=== PATIENT | female | born 1945 | race Caucasian/White ===

== ENCOUNTER 2019-05-13 16:46 | Inpatient (IN) | payer OTHER ==
[2019-05-13] MEDS ORDERED: SODIUM CHLORIDE 1,000 ML IV STA (17:43)
--- NOTE | 2019-05-13 17:52 | PDOC ---
History of Present Illness - General Chief Complaint: Nausea/Vomiting Stated Complaint: VOMITING Time Seen by Provider: 05/13/19 17:23 - History of Present Illness Initial Comments: 05/13/19 17:39 73 yo F with h/o DM, HTN, asthma, GERD, T5-T6 Vertebral Compression, CVA, dysphagia, trach collar (vent), feeding tube, who arrives from [facility] with complain of vomiting x 3 days. Patient arrives from [facility]. Patient reports 3 days of NBNB emesis. Reports 1 episode today, 2 episodes (05-12-18). No identifiable triggers or alleviators. Reports last BM today, nml. Tube feeds daily, denies PO intake. Respiratory report from [facility] (05-13-18) reports patient with episode of orange emesis while suctioning. Patient denies abdominal pain. Reports chronic cough at baseline. Reports chronic dysuria. Patient denies OLEA, vision change, palpitations, wheezing, orthopena, PND, leg swelling/pain, F,C, CP, SOB, urinary complaints, hematuria, BPR, abdominal pain , diarrhea, constipation, lightheadedness, weakness, sensory changes. PMHx: as noted above ROS: as noted SHx: Denies Etoh, IVDA, tobacco use Allergies: Ampicillin, Ciprofloxacin Past History - Past Medical History Allergies/Adverse Reactions: Allergies Allergy/AdvReac Type Severity Reaction Status Date / Time No Known Allergies Allergy Verified 05/13/19 17:59 - Psycho Social/Smoking Cessation Hx Smoking History: Former smoker Have you smoked in the past 12 months: No Information on smoking cessation initiated: No Hx Alcohol Use: No Drug/Substance Use Hx: No Review of Systems - Review of Systems Comments:: 05/13/19 17:53 GENERAL/CONSTITUTIONAL: No fever or chills. No weakness. HEAD, EYES, EARS, NOSE AND THROAT: No change in vision. No ear pain or discharge. No sore throat. CARDIOVASCULAR: No chest pain or shortness of breath RESPIRATORY: +cough. No wheezing, or hemoptysis. GASTROINTESTINAL: +nausea, vomiting. No diarrhea or constipation. GENITOURINARY: + dysuria. No frequency, or change in urination. MUSCULOSKELETAL: No joint or muscle swelling or pain. No neck or back pain. SKIN: No rash NEUROLOGIC: No headache, vertigo, loss of consciousness, or change in strength/ sensation. ENDOCRINE: No increased thirst. No abnormal weight change HEMATOLOGIC/LYMPHATIC: No anemia, easy bleeding, or history of blood clots. ALLERGIC/IMMUNOLOGIC: No hives or skin allergy. *Physical Exam - Vital Signs Last Vital Signs Temp Pulse Resp BP Pulse Ox 99.4 F 92 H 20 143/62 100 05/13/19 17:19 05/13/19 17:19 05/13/19 17:19 05/13/19 17:19 05/13/19 17:19 - Physical Exam 05/13/19 17:54 GENERAL: Awake, alert, and fully oriented, in no acute distress HEAD: No signs of trauma, normocephalic, atraumatic EYES: PERRLA, EOMI, sclera anicteric, conjunctiva clear ENT: Hearing grossly normal, nares patent, oropharynx clear without exudates. Moist mucosa NECK: Normal ROM, supple, no lymphadenopathy, JVD, or masses LUNGS: Coarse lungs sounds, wit exp rhonci, and coarse BL LL. No distress, speaks full sentences. HEART: Regular rate and rhythm, normal S1 and S2, no murmurs, rubs or gallops, peripheral pulses normal and equal bilaterally. ABDOMEN: + Feeding tube midabodmen in place, c/d/i. Soft, nontender, NDS normoactive bowel sounds. No guarding, no rebound. No masses EXTREMITIES : Normal inspection, Normal range of motion, no edema. No clubbing or cyanosis NEUROLOGICAL: Cranial nerves II through XII grossly intact. No focal sensorimotor deficits SKIN: Warm, Dry, normal turgor, no rashes or lesions noted ED Treatment Course - LABORATORY CBC & Chemistry Diagram: 05/13/19 18:45 05/13/19 18:45 - ADDITIONAL ORDERS Additional order review: 05/13/19 18:54 Rad Almanza Name: AN[facility] DEPARTMENT OF RADIOLOGY Phys: Manuel Ness RESIDENT : 1945 Age: 73 Sex: F [facility] Acct: [id number] Loc: [facility] Exam Date: 05/13/19 Status: [place] [address] Unit Number: [id number] EXAM#: TYPE/EXAM: RESULT: [id number] RAD/CHEST X-RAY PORTABLE* Chest: Shortness of breath A single AP view of the chest has been submitted. There are no prior studies at this time for comparison. There is a weak inspiration, tracheostomy tube, unfolded aorta, prominent ever and normal heart. There are prominent vascular structures at the bases with some questionable atelectasis at the left base. Angles are sharp. The soft tissues are intact. There are degenerative changes. Correlation recommended. Reported By: Jeff Mireles MD 05/13/191808 Manuel Ness Technologist: Del Sanches Transcribed Date/Time: 05/13/191808 Assignment Editor: Jeff Mireles Printed Date/Time: By Medical Decision Making - Medical Decision Making 05/13/19 17:52 73 yo F with h/o DM, HTN, asthma, GERD, T5-T6 Vertebral Compression, CVA, dysphagia, trach collar (vent), feeding tube, who arrives from [facility] with complain of vomiting x 3 days. Vitals wnl, AF, A&Ox3. Physical exam notable for patient with trach collar/vent, feeding tube in place, absent abdominal ttp, + coarse lung sounds BL LL bases. Will evaluate for infection (PNA, UTI, enteritis ), and aspiration. R/O SBO. Will evaluate for electrolyte abnml, metabolic and toxic derangements, hypoglycemia. Will provide IV fluid hydration, and reassess. ED Course: 05/13/19 19:13 EKG: NSR with absent MONAE, STD. Incomplete RBBB. Nml interval duration and axis. Nml R wave progression. Pt. endorsed to evening resident Pending labs, UA, reassess Discharge - Discharge Information Problems reviewed: Yes Clinical Impression/Diagnosis: Acute vomiting Condition: Stable Disposition: HOME - Follow up/Referral - Patient Discharge Instructions Patient Printed Discharge Instructions: DI for Vomiting -- Adult Additional Instructions: Please return to the emergency department with any new or worsening symptoms or concerns. Please follow up with your primary care physician within 72 hours. - Post Discharge Activity
--- NOTE | 2019-05-13 19:00 | PDOC ---
Documentation entered by Wilian Sharp SCRIBE, acting as scribe for Rae Riggins DO. Rae Riggins DO: This documentation has been prepared by the Lila luciano Xhesika, SCRIBE, under my direction and personally reviewed by me in its entirety. I confirm that the documentation accurately reflects all work, treatment, procedures, and medical decision making performed by me. Attending Attestation - Resident Resident Name: GroverAustenManuel - ED Attending Attestation I have performed the following: I have examined & evaluated the patient, The case was reviewed & discussed with the resident, I agree w/resident's findings & plan, Exceptions are as noted - HPI HPI: 05/13/19 19:08 The patient is a 73 year old female with a significant PMH of M, HTN, asthma, GERD, T5-T6 Vertebral Compression, CVA, dysphagia, trach collar (vent), feeding tube who presents to the emergency department [facility] for 1 week of persistent nausea and vomiting. Pt states when she gets nauseous she endorses 2-3 episodes of emesis directly after. Pt reports abdominal pain and loose bowel movements. Parents at bedside state the patient normally eats food orally and now is unable to because of her tube. NH reports states patient endorsed an episode of orange emesis while suctioning. The patient denies chest pain, shortness of breath, headache and dizziness. Denies fever, chills, cough,diarrhea and constipation. Allergies: NKDA - Physicial Exam PE: 05/13/19 19:09 GENERAL: Awake, alert, and fully oriented, conversant with whispering voice HEAD: No signs of trauma ENT: +trach in place NECK: Normal ROM, supple, no lymphadenopathy, JVD, or masses LUNGS: Breath sounds equal, clear to auscultation bilaterally. No wheezes, and no crackles HEART: Regular rate and rhythm, normal S1 and S2, no murmurs, rubs or gallops ABDOMEN: +peg tube in place. no drainage, site clear. Soft, nontender, normoactive bowel sounds. No guarding, no rebound. No masses EXTREMITIES: Normal range of motion, no edema. No clubbing or cyanosis. No cords, erythema, or tenderness SKIN: Warm, Dry, normal turgor, no rashes or lesions noted. - Medical Decision Making 05/13/19 18:58 I, Dr. Rae Riggins, DO, attest that this document has been prepared under my direction and personally reviewed by me in its entirety. I further attest, that it accurately reflects all work, treatment, procedures and medical decision -making performed by me. 73yo female with persistent n/v for about a week -pt has been unable to tolerate po intake and is only on tube feeds -pt states sometimes with abd pain and sometimes with nausea, no cp -pt with chronic trach and peg from [place] at [facility] in January -pt is DNR/I -pt denies abd pain at this time -tube in place -labs and imaging ordered -trop ordered -will give zofran, ivf hydraiton -will monitor and reassess -pt on chronic vent through the trach 05/13/19 19:01 cxr clear 05/13/19 20:47 pt with hypercalcemia pt with cr 1.[address] abd no vomiting while in the ER ivf hydraiton running 05/13/19 20:48 will straight cath for urine 05/13/19 23:48 pt with uti abx ordered microblog sent pmd dr. osuna who is covered by dr. dee who is covered tonight by [facility] 05/14/19 00:49 resident discussed the case with [facility] who accepts pt to service Heart Score/ECG Review - ECG Intrepretation Comment:: 05/13/19 19:12 sinus at 93, incomplete RBBB, nl axis, no acute st/t wave findings
[2019-05-13 19:16] LABS: BASO % 0.9 % (0-2.0); EOS % 6.7 % (0-4.5); HEMATOCRIT 31.1 % (32.4-45.2); HEMOGLOBIN 10.2 GM/dL (10.7-15.3); LYMPH % 16.8 % (8-40); MCH 25.7 pg (25.7-33.7); MCHC 32.7 g/dl (32.0-36.0); MEAN CELL VOLUME 78.7 fl (80-96); MEAN PLT VOLUME 9.1 fl (7.5-11.1); MONO % 10.3 % (3.8-10.2); NEUT % 65.3 % (42.8-82.8); PLATELET COUNT 377 K/MM3 (134-434); RBC 3.95 M/mm3 (3.60-5.2); RDW 16.3 % (11.6-15.6); WHITE BLOOD COUNT 7.3 K/mm3 (4.0-10.0)
[2019-05-13 19:45] LABS: PROTHROMBIN TIME (PATIENT) 11.8 SEC (9.7-13.0)
[2019-05-13 19:48] LABS: ACTIVATED PTT 36.2 SECONDS (25.2-36.5)
[2019-05-13 19:50] LABS: ALBUMIN 3.1 g/dl (3.4-5.0); BILIRUBIN,TOTAL 0.4 mg/dL (0.2-1); BLOOD UREA NITROGEN 21.8 mg/dL (7-18); CALCIUM 12.8 mg/dL (8.5-10.1); CREATININE 1.4 mg/dL (0.55-1.3); POTASSIUM 4.2 mmol/L (3.5-5.1)
[2019-05-13] MEDS ORDERED: ONDANSETRON 4 MG/2 ML VIAL IVPUSH ONE (20:15)
[2019-05-13] MEDS ORDERED: FAMOTIDINE 20 MG/50 ML IVPB 20 MG/50 ML MG IVPB ONE ×2 (20:15→20:25)
[2019-05-13] MEDS ORDERED: SODIUM CHLORIDE 0.9% 1000 ML INFUS.BAG IV ONE (20:15)
[2019-05-13] MEDS ORDERED: ONDANSETRON 4 MG/2 ML VIAL ONE (20:24)
--- NOTE | 2019-05-13 21:02 | PDOC ---
*Physical Exam - Vital Signs Last Vital Signs Temp Pulse Resp BP Pulse Ox 99.4 F 92 H 15 143/62 100 05/13/19 17:19 05/13/19 17:19 05/13/19 20:07 05/13/19 17:19 05/13/19 17:19 - Physical Exam General Appearance: Yes: Nourished, Appropriately Dressed. No: Apparent Distress HEENT: positive: EOMI, SURAJ, Symmetrical, Muffled/Hoarse voice. negative: Scleral Icterus (R), Scleral Icterus (L) Neck: positive: Trachea midline, Supple, Other (has trach in place, hooked up to vent). negative: Tender, Lymphadenopathy (R), Lymphadenopathy (L), Tender lateral, Tender midline Respiratory/Chest: positive: Lungs Clear, Normal Breath Sounds. negative: Chest Tender, Respiratory Distress, Crackles, Rales, Rhonchi, Stridor, Wheezing Cardiovascular: positive: Regular Rhythm, Regular Rate Gastrointestinal/Abdominal: positive: Normal Bowel Sounds, Soft, Protuberent, Other (PEG in place left upper abdomen, well-healed ventral scar). negative: Tender, Organomegaly, Decreased BS, Guarding, Rebound, Tenderness, Hernia Musculoskeletal: positive: Normal Inspection. negative: CVA Tenderness, Vertebral Tenderness Extremity: positive: Normal Capillary Refill, Normal Inspection, Normal Range of Motion, Pelvis Stable. negative: Tender Integumentary: positive: Normal Color, Dry, Warm Neurologic: positive: Fully Oriented, Alert, Normal Mood/Affect, Normal Response ED Treatment Course - LABORATORY CBC & Chemistry Diagram: 05/13/19 18:45 05/13/19 18:45 - ADDITIONAL ORDERS Additional order review: Laboratory Results 05/13/19 05/13/19 18:45 18:45 PT with INR 11.80 INR 1.00 PTT (Actin FS) 36.2 Sodium 140 Potassium 4.2 Chloride 102 Carbon Dioxide 31 Anion Gap 6 L BUN 21.8 H Creatinine 1.4 H Est GFR (CKD-EPI)AfAm 43.09 Est GFR (CKD-EPI)NonAf 37.18 Random Glucose 248 H Calcium 12.8 H Total Bilirubin 0.4 AST 38 H ALT 20 Alkaline Phosphatase 116 Creatine Kinase 62 Troponin I 0.03 Total Protein 7.0 Albumin 3.1 L Lipase 63 L 05/13/19 18:45 RBC 3.95 MCV 78.7 L MCHC 32.7 RDW 16.3 H MPV 9.1 Neutrophils % 65.3 Lymphocytes % 16.8 Monocytes % 10.3 H Eosinophils % 6.7 H Basophils % 0.9 - Medications Given in the ED: ED Medications Discontinued Medications Generic Name Dose Route Start Last Admin Trade Name Freq PRN Reason Stop Dose Admin Sodium Chloride 1,000 mls @ 1,000 mls/hr 05/13/19 17:43 05/13/19 18:54 Normal Saline - IV 05/13/19 18:42 1,000 mls/hr ASDIR STA Administration Famotidine/Sodium Chloride 20 mg in 50 mls @ 100 mls/hr 05/13/19 20:15 20:34 Pepcid 20 Mg Premixed Ivpb - IVPB 05/13/19 20:44 100 mls/hr ONCE ONE Administration Ondansetron HCl 4 mg 05/13/19 20:15 05/13/19 21:00 Zofran Injection IVPUSH 05/13/19 20:16 4 mg ONCE ONE Administration Sodium Chloride 1,000 ml 05/13/19 20:15 05/13/19 20:34 Normal Saline - IV 05/13/19 20:16 1,000 ml ONCE ONE Administration Medical Decision Making - Medical Decision Making 05/13/19 21:01 Signed out to me by Dr. Ness. 73F DNR/DNI PMH DM, HTN, GERD, asthma, CVA c/b dysphagia and tracheostomy/vent, PEG, sent from [facility] for 3 days vomiting. Patient reports 3 days of NBNB emesis, unrelated to abdominal pain or tube feedings. Last BM today, normal. Tube feeds daily, denies PO intake. Per report , one episode of orange emesis while suctioning trach. Chronic cough at baseline. No other symptoms outside of nausea/vomiting Allergies to Ampicillin, Ciprofloxacin [] labs [] UA [] CT AP non-con 05/13/19 23:33 Labs show: - Ca 12.8, unclear etiology, giving IVF - Cr 1.4, no priors to compare, consistent with ARNAV - WBC 7.3, no obvious systemic infection - UA consistent with UTI, giving ceftriaxone 05/14/19 06:[address] Carver with admitting team, good for admit to tele under Dr. Hall Discharge - Discharge Information Problems reviewed: Yes Clinical Impression/Diagnosis: Acute vomiting Condition: Stable Disposition: HOME - Follow up/Referral - Patient Discharge Instructions - Post Discharge Activity
[2019-05-13 23:41] LABS: PH,URINE 6.5 (5.0-8.0); URINE APPEARANCE TURBID; URINE BILIRUBIN NEGATIVE (NEGATIVE); URINE COLOR YELLOW; URINE GLUCOSE (UA) NEGATIVE (NEGATIVE); URINE KETONE NEGATIVE (NEGATIVE); URINE NITRITE NEGATIVE (NEGATIVE); URINE PROTEIN 2+ (NEGATIVE)
[2019-05-13 23:42] LABS: EPI CELLS 65.5 /HPF (0-5/HPF); HYALINE CASTS 1076.77 /lpf (0-8); URINE BACTERIA 903.7 /hpf (NEGATIVE); URINE LEUK ESTERASE 3+ (NEGATIVE); URINE RBC 0.4 /hpf (0-4); URINE WBC 648.5 /hpf (0-5)
[2019-05-13] MEDS ORDERED: CEFTRIAXONE 1 GM in DEXTROSE 5%-WATER - 100 ML IVPB ONE (23:47)
--- NOTE | 2019-05-14 01:03 | PN ---
Teaching Attending Note Name of Resident: Manuel Carver ATTENDING PHYSICIAN STATEMENT I saw and evaluated the patient. I reviewed the resident's note and discussed the case with the resident. I agree with the resident's findings and plan as documented. SUBJECTIVE: Patient is a 73 year old woman with a PMH of NIDDM, HTN, Asthma, GERD, T5-T6 Vertebral Compression, CVA, Dysphagia, Tracheostomy collar (ventilator), and Feeding tube, who arrives from [facility] with complaint of vomiting fro 3 days. Reports 1 episode today, 2 episodes (05-12-18). No identifiable triggers or alleviators. Reports last normal BM today. Tube feeds daily with no PO intake. Respiratory report from [facility] (05-13-18) reports patient with episode of orange emesis while suctioning. Patient denies abdominal pain. Reports chronic cough at baseline. Reports chronic dysuria. Patient denies headache, vision change, palpitations, wheezing, orthopena, PND, leg swelling/pain, fever, chills, chest pain, SOB, hematuria, hematochezia, abdominal pain, diarrhea, constipation, lightheadedness or weakness. FH of breast cancer. Denies alcohol, tobacco or illicit drug use. No sick contacts or recent travels. OBJECTIVE: Somnolent but readily arousable Vital Signs Period Temp Pulse Resp BP Sys/Vences Pulse Ox Last 24 Hr 99.4 F 86-92 14-20 126-143/48-62 100-100 HEENT: No Jaundice, eye redness or discharge, PERRLA. Normocephalic, atraumatic. External ears are normal. No nasal discharge. Neck: Supple, nontender. No palpable adenopathy or thyromegaly. No JVD. Ventilator dependent via tracheostomy tube. Chest: Good effort. Clear to auscultation and percussion. Heart: Regular. No S3, rub or murmur Abdomen: Not distended, soft, nontender and no HSM. No rebound or guarding. PEG in place. Normal bowel sounds. Ext: Peripheral pulses intact. No leg edema. Skin: Warm and dry. No petechiae, rash or ecchymosis. Neuro: Somnolent but readily arousable. CN 2-12 grossly intact. Sensation grossly intact in all four extremities and DTR are symmetric. Psych: Unable to assess. Abnormal Lab Results 05/13/19 05/13/19 05/13/19 18:45 18:45 22:40 Hgb 10.2 L Hct 31.1 L MCV 78.7 L RDW 16.3 H Monocytes % 10.3 H Eosinophils % 6.7 H Anion Gap 6 L BUN 21.8 H Creatinine 1.4 H Random Glucose 248 H Calcium 12.8 H AST 38 H Albumin 3.1 L Lipase 63 L Urine Protein 2+ H Urine Blood 3+ H Ur Leukocyte Esterase 3+ H ASSESSMENT AND PLAN: 1. UTI/Hypercalcemia - Nausea and vomiting may be due to UTI, but will rule out obstruction. Etiology of hypercalcemia is unclear. CXR shows bilateral increased interstitial makings and tracheostomy tube in place. Being treated with IV Zosyn and Vancomycin - adjusted for GFR for UTI. Will get CT abdomen/ pelvis, PTH level, phosphate, urine calcium, SPEP/UPEP and hydrate with IV NS to correct hypercalcemia. EKG shows NSR with IRBBB and prolonged QTc. Will avoid zofran. Withhold PEG feeding pending result of CT abdomen/pelvis. Will continue comprehensive care for all of patients comorbid conditions including Duoneb PRN and aspiration precautions. 2. Hypoalbuminemia - Possibly due to combined effects of proteinuria, malnutrition and inflammation associated with comorbid chronic conditions. Will ensure adequate dietary protein intake and also consult score caller. 3. Uncontrolled DM For now, we will hold the home diabetes drugs and implement sliding scale insulin regimen. Provide comprehensive diabetes care with patient teaching and counseling about the importance of adherence to prescribed diabetes regimen, euglycemia, eye care and foot care. 4. ARNAV - May have underlying CKD. Has multiple risk factors for ARNAV. Will get kidney sonogram, hydrate and monitor urine output. Will consult nephrology and avoid nephrotoxic agents such as NSAIDS, aminoglycosides, contrast dyes and certain Alternative medicine products. 5. Hypertension - Restart suitable outpatient antihypertensive drugs when clinically appropriate. Revise regimen to ensure [id number] excellent BP control and queen's counsel patient on the injurious effects of uncontrolled hypertension. Nonpharmacologic measures to control hypertension like weight loss , salt restriction and exercise discussed. Importance of adherence to treatment regimen and attainment of normotension emphasized. 6. Anemia with low MCV - Nutritional deficiency and renal failure are likely causes. Will do basic anemia work up including serial stool guaiacs, reticulocyte count and iron studies. Would benefit from Procrit therapy once iron replete. 7. DVT prophylaxis - Heparin 5000u sq tid. 8. Advance directives - DNR/DNI
[2019-05-14] MEDS ORDERED: CEFTRIAXONE 1 GM/50 ML BAG ONE (01:06)
[2019-05-14] MEDS ORDERED: ACETAMINOPHEN 1000 MG/100 ML VIAL (NON FORMULARY) IVPB ONE (02:47)
[2019-05-14] MEDS ORDERED: VANCOMYCIN 1 GRAM (PRE-DOCKED) 1,000 MG/250 ML BAG IVPB SCH (03:30)
[2019-05-14] MEDS ORDERED: VANCOMYCIN 1 GM PREMIX - 1 GM/200 ML BAG IVPB SCH (03:30)
[2019-05-14] MEDS ORDERED: VANCOMYCIN 1 GRAM (PRE-DOCKED) 1,000 MG/250 ML BAG IVPB ONE ×2 (03:43→17:14)
[2019-05-14] MEDS ORDERED: ACETAMINOPHEN INJECTION 100 ML IVPB ONE (03:43)
--- NOTE | 2019-05-14 05:19 | HP ---
CHIEF COMPLAINT: Nausea and vomiting and a dry cough for the past 10 days PCP: Dr. Chakraborty HISTORY OF PRESENT ILLNESS: This is a 73 year old female with PMH of complicated cardiac stent placement ( Dec 2018, developed sepsis 2/2 UTI, resp failure, was subsequently intubated currently on vent through trach and PEG tube placement), asthma, DM, HTN. She presented to the ER from [facility] due to nausea and vomiting and a dry cough for the past 10 days. She has had 1 episode per day of yellow vomiting. As per nursing staff, orange emesis was noticed today while trach suctioning. She has also had diarrhea, although she is on tube feeds and has watery diarrhea at baseline since PEG placement. No associated fevers, chills, dysuria, light headedness, chest pain. She is AOx3 at baseline, and was present at bedside to assist with history and examination. She has 40+ year history of asthma, and has frequently been on Prednisone PO on and off for several years. She developed back pain a few years ago, and subsequently developed 3 vertebral fractures, which was attributed to chronic steroid use. She was due to undergo surgery, but after imaging her surgeon stated that her osteoporosis was too advanced for any benefit from surgery (Dec 2018). Around the same time, she developed chronic SOB with chest discomfort. On further cardiac workup, she was found to have ACS, and underwent stent placement at [facility]. Her recovery was complicated by sepsis 2/2 UTI, resp failure, and she was subsequently intubated for 3 weeks, after which tracheostomy was performed and a PEG tube was also placed. She was then transferred to [facility] for rehab. ER course was notable for: (1) Ca 12.8 (corrected 13.5) (2) Ceftriaxone 1g given (3) UA 3+ blood, 3+ LE Recent Travel: denies PAST MEDICAL HISTORY: See HPI PAST SURGICAL HISTORY: GB removal 10 years ago Surgery for vaginal prolapse correction 5 years ago Social History: Smoking: denies Alcohol: denies Drugs: denies Allergies No Known Allergies Allergy (Verified 05/13/19 17:59) HOME MEDICATIONS: REVIEW OF SYSTEMS CONSTITUTIONAL: fevers Absent: fever, chills, diaphoresis, generalized weakness, malaise, loss of appetite, weight change HEENT: Absent: rhinorrhea, nasal congestion, throat pain, throat swelling, difficulty swallowing, mouth swelling, ear pain, eye pain, visual changes CARDIOVASCULAR: Absent: chest pain, syncope, palpitations, irregular heart rate, lightheadedness , peripheral edema RESPIRATORY: cough Absent: cough, shortness of breath, dyspnea with exertion, orthopnea, wheezing, stridor, hemoptysis GASTROINTESTINAL: nausea, vomiting, diarrhea Absent: abdominal pain, abdominal distension, nausea, vomiting, diarrhea, constipation, melena, hematochezia GENITOURINARY: Absent: dysuria, frequency, urgency, hesitancy, hematuria, flank pain, genital pain MUSCULOSKELETAL: Absent: myalgia, arthralgia, joint swelling, back pain, neck pain SKIN: Absent: rash, itching, pallor HEMATOLOGIC/IMMUNOLOGIC: Absent: easy bleeding, easy bruising, lymphadenopathy, frequent infections ENDOCRINE: Absent: unexplained weight gain, unexplained weight loss, heat intolerance, cold intolerance NEUROLOGIC: Absent: headache, focal weakness or paresthesias, dizziness, unsteady gait, seizure, mental status changes, bladder or bowel incontinence PSYCHIATRIC: Absent: anxiety, depression, suicidal or homicidal ideation, hallucinations. PHYSICAL EXAMINATION Vital Signs - 24 hr 05/13/19 05/13/19 05/13/19 17:05 17:19 20:07 Temperature 99.4 F Pulse Rate 92 H Pulse Rate [ Left Radial] Respiratory 14 20 15 Rate Blood Pressure 143/62 Blood Pressure [Left Arm] Blood Pressure [Right Arm] O2 Sat by Pulse 100 Oximetry (%) 05/13/19 05/14/19 05/14/19 21:01 00:14 02:54 Temperature 98.3 F Pulse Rate Pulse Rate [ 86 93 H Left Radial] Respiratory 14 14 22 H Rate Blood Pressure Blood Pressure 139/62 [Left Arm] Blood Pressure 126/48 L [Right Arm] O2 Sat by Pulse 100 100 Oximetry (%) GENERAL: AOx3, appears somnolent but responsive HEAD: Normal with no signs of trauma. EYES: Pupils equal, round and reactive to light, extraocular movements intact, sclera anicteric, conjunctiva clear. No lid lag. EARS, NOSE, THROAT: Ears normal, nares patent, oropharynx clear without exudates. Moist mucous membranes. NECK: Trach tube in place, connected to vent LUNGS: Vent transmitted breath sounds, no crackles or wheezing heard HEART: Regular rate and rhythm, normal S1 and S2 without murmur, rub or gallop. ABDOMEN: Soft, supraumbilical PEG tube in place without erythema, discoloration , or tenderness around the insertion site, suprapubic tenderness to palpation, patient refused digital rectal exam UPPER EXTREMITIES: 2+ pulses, warm, well-perfused. No cyanosis. No clubbing. No peripheral edema. LOWER EXTREMITIES: Appears to have genu valgum, pulses intact NEUROLOGICAL: Upper motor strength 3/5, lower 4/5, sensations intact PSYCHIATRIC: Cooperative. Good eye contact. Appropriate mood and affect. SKIN: Warm, dry, normal turgor, no rashes or lesions noted, normal capillary refill. Laboratory Results - last 24 hr 05/13/19 05/13/19 05/13/19 18:45 18:45 18:45 WBC 7.3 RBC 3.95 Hgb 10.2 L Hct 31.1 L MCV 78.7 L MCH 25.7 MCHC 32.7 RDW 16.3 H Plt Count 377 MPV 9.1 Absolute Neuts (auto) 4.8 Neutrophils % 65.3 Lymphocytes % 16.8 Monocytes % 10.3 H Eosinophils % 6.7 H Basophils % 0.9 Nucleated RBC % 0 PT with INR 11.80 INR 1.00 PTT (Actin FS) 36.2 Sodium 140 Potassium 4.2 Chloride 102 Carbon Dioxide 31 Anion Gap 6 L BUN 21.8 H Creatinine 1.4 H Est GFR (CKD-EPI)AfAm 43.09 Est GFR (CKD-EPI)NonAf 37.18 Random Glucose 248 H Calcium 12.8 H Total Bilirubin 0.4 AST 38 H ALT 20 Alkaline Phosphatase 116 Creatine Kinase 62 Troponin I 0.03 Total Protein 7.0 Albumin 3.1 L Lipase 63 L Urine Color Urine Appearance Urine pH Ur Specific [place] Urine Protein Urine Glucose (UA) Urine Ketones Urine Blood Urine Nitrite Urine Bilirubin Urine Urobilinogen Ur Leukocyte Esterase Urine WBC (Auto) Urine RBC (Auto) Urine Casts (Auto) U Pathogenic Cast Auto U Epithel Cells (Auto) Urine Bacteria (Auto) 05/13/19 22:40 WBC RBC Hgb Hct MCV MCH MCHC RDW Plt Count MPV Absolute Neuts (auto) Neutrophils % Lymphocytes % Monocytes % Eosinophils % Basophils % Nucleated RBC % PT with INR INR PTT (Actin FS) Sodium Potassium Chloride Carbon Dioxide Anion Gap BUN Creatinine Est GFR (CKD-EPI)AfAm Est GFR (CKD-EPI)NonAf Random Glucose Calcium Total Bilirubin AST ALT Alkaline Phosphatase Creatine Kinase Troponin I Total Protein Albumin Lipase Urine Color Yellow Urine Appearance Turbid Urine pH 6.5 Ur Specific [place] 1.013 Urine Protein 2+ H Urine Glucose (UA) Negative Urine Ketones Negative Urine Blood 3+ H Urine Nitrite Negative Urine Bilirubin Negative Urine Urobilinogen 1.0 Ur Leukocyte Esterase 3+ H Urine WBC (Auto) 648.5 Urine RBC (Auto) 0.4 Urine Casts (Auto) 1076.77 U Pathogenic Cast Auto None seen U Epithel Cells (Auto) 65.5 Urine Bacteria (Auto) 903.7 ASSESSMENT/PLAN: 73F with PMH of complicated cardiac stent placement (Dec 2018, developed sepsis 2/2 UTI, resp failure, was subsequently intubated currently on vent through trach and PEG tube placement), asthma, DM, HTN. She presented to the ER from [facility] due to nausea and vomiting and a dry cough for the past 10 days #Sepsis/UTI - This may be causing her nausea and vomiting - UA through straight cath showed UA 3+ blood, 3+ LE - CXR: bilateral increased interstitial makings and tracheostomy tube in place - CT AP ordered - Urine cx ordered, will cover broadly for Pseudomonas (extensive stay in medical setting for several months) as well as MRSA with Zosyn 2.25 Q6(renal dose) and vanco 1g daily - ID consulted - Avoid Zofran, QTC is in 487 - Influenza test ordered #Hypercalcemia - 12.8, corrected for albumin is 13.5 - PTH vs malignancy vs multiple myeloma vs familial hypocalciuric hypercalcemia (FHH) - Will order PTH to check for hyperparathyroidism - MM must be r/o due to hx of elevated Ca, renal insufficiency, anemia, vertebral fxs, and repeated infections (multiple UTIs) - Will order serum and urine electrophoresis to r/o MM - Urine Ca ordered to r/o FHH #ARNAV vs CKD - No records to compare to, would contact [facility] to obtain records - Hypercalcemia may cause renal dysfunction due to polyuria induced vasoconstriction (shown in Ca levels between 12-14), or even tubular injury through direct ca deposition, although cause of CKD/ARNAV is unclear - Will hydrate with N/S - Renal US ordered - Nephro consult placed #Anemia - H/H 10.2/31.1 with low MCV and elevated RDW, suggestive of microcytic anemia - TIBC, Fe studies ordered - FOBT ordered #DM - BGM and ISS - May resume long acting insulin once confirmed #Hx of Asthma - Duonebs PRN ordered #FEN - Hold PEG feeds until official CT AP result #DVT - SCDs, may start Heparin once GI bleed ruled out on FOBT #Advanced directives - Patient is DNR/DNI Visit type - Emergency Visit Emergency Visit: Yes ED Registration Date: 05/14/19 Care time: The patient presented to the Emergency Department on the above date and was hospitalized for further evaluation of their emergent condition. - New Patient This patient is new to me today: Yes Date on this admission: 05/14/19 - Critical Care Critical Care patient: No ATTENDING PHYSICIAN STATEMENT I saw and evaluated the patient. I reviewed the resident's note and discussed the case with the resident. I agree with the resident's findings and plan as documented. SUBJECTIVE: OBJECTIVE: ASSESSMENT AND PLAN:
[2019-05-14] MEDS: ALBUTEROL SO4 2.5/IPRATROPIUM 0.5 INH SOL 3 ML VIAL.NEB. NEB SCH ×5 (05:30→20:20)
[2019-05-14] MEDS ORDERED: HEPARIN NA (PORCINE) 5,000 UNITS/ML 1ML VIAL SQ SCH (06:00)
[2019-05-14 08:20] LABS: BASO % 0.4 % (0-2.0); EOS % 6.4 % (0-4.5); HEMATOCRIT 29.6 % (32.4-45.2); HEMOGLOBIN 9.7 GM/dL (10.7-15.3); LYMPH % 13.8 % (8-40); MCH 25.9 pg (25.7-33.7); MCHC 32.9 g/dl (32.0-36.0); MEAN CELL VOLUME 78.9 fl (80-96); MEAN PLT VOLUME 8.9 fl (7.5-11.1); MONO % 9.8 % (3.8-10.2); NEUT % 69.6 % (42.8-82.8); PLATELET COUNT 324 K/MM3 (134-434); RBC 3.75 M/mm3 (3.60-5.2); RDW 16.7 % (11.6-15.6); WHITE BLOOD COUNT 7.2 K/mm3 (4.0-10.0)
[2019-05-14 08:26] LABS: IRON SERUM 30 ug/dL (50-175); TOTAL IRON BINDING CAPACITY 255 ug/dL (250-450)
[2019-05-14 08:48] LABS: ALBUMIN 2.9 g/dl (3.4-5.0); BILIRUBIN,TOTAL 0.6 mg/dL (0.2-1); BLOOD UREA NITROGEN 19.3 mg/dL (7-18); CALCIUM 12.7 mg/dL (8.5-10.1); CREATININE 1.2 mg/dL (0.55-1.3); POTASSIUM 3.8 mmol/L (3.5-5.1); TOT PROT 6.7 g/dl (6.4-8.2)
[2019-05-14] MEDS ORDERED: PIPERACILLIN/TAZOB 2.25 GM 2.25 GM in DEXTROSE 5%-WATER - 50 ML IVPB SCH (09:00)
[2019-05-14] MEDS: INSULIN (NOVOLOG) ASPART 100 UNITS/ML 10ML VIAL SQ SCH ×2 (09:22→15:32)
[2019-05-14] MEDS ORDERED: PIPERACILLIN/TAZOB 2.25 GM 2.25 GM/50 ML BAG IVPB ONE (09:28)
--- NOTE | 2019-05-14 10:39 | PN ---
Progress Note, Physician Chief Complaint: UTI Hypercalcemia Nausea/Vomiting History of Present Illness: Previous notes and events reviewed awake and alert mechanically ventilated noted to be anxious, patient is paranoid saying people are out to get her complain of mid chest pain, tachycardic denies SOB or dizziness no further reports of nausea or vomiting - Current Medication List Current Medications: Active Medications Albuterol/Ipratropium (Duoneb -) 1 amp NEB RQ4H CHIQUITA Last Admin: 05/14/19 05:30 Dose: 1 amp Vancomycin HCl (Vancomycin 1 Gm Premix -) 1 gm in 200 mls @ 133.333 mls/hr IVPB Q24H CHIQUITA Piperacillin Sod/Tazobactam (Sod 2.25 gm/ Dextrose) 50 mls @ 100 mls/hr IVPB Q6H-IV CHIQUITA; Protocol Piperacillin Sod/Tazobactam (Sod 2.25 gm/ Dextrose) 50 mls @ 100 mls/hr IVPB Q6H-IV CHIQUITA; Protocol Stop: 05/15/19 03:29 Insulin Aspart (Novolog Vial) 1 units SQ ACHS CHIQUITA; Protocol Last Admin: 05/14/19 09:22 Dose: Not Given - Objective Vital Signs: Vital Signs Temperature 98.3 F 05/14/19 02:54 Pulse Rate 89 05/14/19 07:01 Respiratory Rate 14 05/14/19 07:01 Blood Pressure 137/60 05/14/19 07:01 O2 Sat by Pulse Oximetry (%) 100 05/14/19 07:01 Constitutional: Yes: Anxious Eyes: Yes: Conjunctiva Clear HENT: Yes: Atraumatic, Other Neck: Yes: Other (trach) Cardiovascular: Yes: Tachycardia Respiratory: Yes: Regular, Diminished, Mechanically Ventilated Gastrointestinal: Yes: Normal Bowel Sounds, Soft, Other (Gtube) Genitourinary: Yes: Incontinence Musculoskeletal: Yes: Muscle Weakness Extremities: Yes: WNL Edema: No Neurological: Yes: Alert Psychiatric: Yes: Alert, Other (anxious) Labs: CBC, BMP 05/14/19 05:51 05/14/19 05:51 INR, PTT INR 1.00 (0.83-1.09) 05/13/19 18:45 Problem List - Problems (1) UTI (urinary tract infection) Assessment/Plan: -ID consult -afebrile -no leukocytosis -received Ceftriaxone in ER -UC pending -UA shows 3+ leuks, 3+ blood, 3+ protein, WBC 684.5 -LA ordered Code(s): N39.0 - URINARY TRACT INFECTION, SITE NOT SPECIFIED (2) Hypercalcemia Assessment/Plan: -Renal consult -12.8~12.7 -PTH pending -M-spike pending -pending serum protein electrophoresis Code(s): E83.52 - HYPERCALCEMIA (3) CKD (chronic kidney disease) Assessment/Plan: -Renal Consult -BUN/Cr 19.3/1.2 -monitor renal function daily -pending renal US Code(s): N18.9 - CHRONIC KIDNEY DISEASE, UNSPECIFIED (4) Respiratory failure with hypoxia and hypercapnia Assessment/Plan: -Pulmonary consult -mechanically ventilated -keep SpO2 >90% -Montelukast HS -Prednisone daily Code(s): J96.91 - RESPIRATORY FAILURE, UNSPECIFIED WITH HYPOXIA; J96.92 - RESPIRATORY FAILURE, UNSPECIFIED WITH HYPERCAPNIA (5) Nausea and vomiting Assessment/Plan: -CTAP shows somewhat atrophic R kidney, umbilical hernia containing non- obstructed small bowel loopsno gross evidence of acute pathology within abdomen or pelvis -no Zofran due to prolong QT -consult dietary to begin feeds -no further episodes of vomiting reported Code(s): R11.2 - NAUSEA WITH VOMITING, UNSPECIFIED (6) Chest pain Assessment/Plan: -EKG reviewed NSR -Cardiology consult -tachycardic at present will re-order EKG -troponin 0.03 Code(s): R07.9 - CHEST PAIN, UNSPECIFIED (7) Anxiety Assessment/Plan: -Psychiatry consult -Klonopin BID Code(s): F41.9 - ANXIETY DISORDER, UNSPECIFIED (8) Paranoia Assessment/Plan: -psychiatry consult Code(s): F22 - DELUSIONAL DISORDERS (9) HTN (hypertension) Assessment/Plan: -Metoprolol, Furosemide Code(s): I10 - ESSENTIAL (PRIMARY) HYPERTENSION (10) Diabetes mellitus Assessment/Plan: -BGM ACHS -Levemir BID -ISS -HgA1c Code(s): E11.9 - TYPE 2 DIABETES MELLITUS WITHOUT COMPLICATIONS (11) HLD (hyperlipidemia) Assessment/Plan: -Atorvastatin Code(s): E78.5 - HYPERLIPIDEMIA, UNSPECIFIED Assessment/Plan see problem list dvt ppx
[2019-05-14] MEDS ORDERED: ACETAMINOPHEN 325 MG TABLET (FP) PO PRN (11:47)
[2019-05-14] MEDS ORDERED: clonazePAM 0.5 MG TABLET GT SCH (12:00)
--- NOTE | 2019-05-14 12:41 | EKG ---
Test Reason : Blood Pressure : / mmHG Vent. Rate : 093 BPM Atrial Rate : 093 BPM P-R Int : 168 ms QRS Dur : 102 ms QT Int : 392 ms P-R-T Axes : 050 017 022 degrees QTc Int : 487 ms NORMAL SINUS RHYTHM INCOMPLETE RIGHT BUNDLE BRANCH BLOCK BORDERLINE ECG NO PREVIOUS ECGS AVAILABLE Confirmed by ELVIRA WOO MD ([id number]) on 05/14/2019 12:40:46 PM Referred By: Confirmed By:ELVIRA WOO MD
--- NOTE | 2019-05-14 13:44 | CON.PULM ---
Consult Consult Specialty:: PULMONARY Referred by:: Dr Salgado Reason for Consultation:: respiratory failure - History of Present Illness Chief Complaint: nausea/vomiting History of Present Illness: 73yo female with h/o HTN, DM, asthma, CAD, chronic respiratory failure s/p tracheostomy/PEG late 2018 after prolonged intubation after ACS event complicated by UTI/sepsis who was [facility] from the [facility] for nausea, vomiting, abdominal pain and cough. She is awake, able to phonate while vented. Does report some shortness of breath. Abdominal imaging unremarkable. No fevers recorded. CXR without acute infiltrates. - History Source History Provided By: Patient, Medical Record Limitations to Obtaining History: Clinical Condition - Past Medical History Cardio/Vascular: Yes: CAD, HTN Pulmonary: Yes: Asthma, Previously Intubated Endocrine: Yes: Diabetes Mellitus - Alcohol/Substance Use Hx Alcohol Use: No - Smoking History Smoking history: Former smoker Have you smoked in the past 12 months: No Home Medications - Allergies Allergies/Adverse Reactions: Allergies Allergy/AdvReac Type Severity Reaction Status Date / Time No Known Allergies Allergy Verified 05/13/19 17:59 Review of Systems Unable to obtain ROS, reason: pt nonverbal Physical Exam Vital Sings: Vital Signs Temperature 98.3 F 05/14/19 02:54 Pulse Rate 89 05/14/19 07:01 Respiratory Rate 14 05/14/19 07:01 Blood Pressure 137/60 05/14/19 07:01 O2 Sat by Pulse Oximetry (%) 100 05/14/19 07:01 Constitutional: Yes: Anxious Eyes: Yes: Conjunctiva Clear, EOM Intact HENT: Yes: Atraumatic, Normocephalic Neck: Yes: Supple, Trachea Midline Cardiovascular: Yes: Regular Rate and Rhythm Respiratory: Yes: Rhonchi, Wheezes ...Clubbing: No Gastrointestinal: Yes: Normal Bowel Sounds, Soft. No: Tenderness Edema: No Neurological: Yes: Alert, Oriented Labs: CBC, BMP 05/14/19 05:51 05/14/19 05:51 Imaging - Results Chest X-ray: Report Reviewed, Image Reviewed (no infiltrates) Assessment/Plan Chronic Respiratory Failure UTI CAD Asthma HTN DM - IV antibiotics - f/u cultures - inhaled bronchodilators - O2 to keep Spo2 >90% - on prednisone - if continues to wheeze, may need short course of medrol - singulair - enteral feeds - DVT/GI prophylaxis Thank you for this consult Scar Radford MD
--- NOTE | 2019-05-14 14:06 | PN ---
Progress Note (short form) - Note Progress Note: ID CONSULT DICTATED UTI R/O SEPSIS SECONDARY TO SOURCE PCN/ QUINOLONE ALLERGIES CHRONIC RESP FAILURE AWAIT C/S EMPIRIC CEFEPIME + STAT DOSE VANCOMYCIN DISCUSSED WITH AT BEDSIDE
[2019-05-14] MEDS ORDERED: VANCOMYCIN 1,000 MG in DEXTROSE 5%-WATER - 250 ML IVPB ONE (14:18)
[2019-05-14] MEDS ORDERED: DOCUSATE NA 100 MG/10 ML UNIT-DOSE CUPS GT SCH (14:30)
[2019-05-14] MEDS ORDERED: ACETAMINOPHEN 650 MG/20.3 ML ORAL SOLUTION (CUPS) PO PRN (14:34)
[2019-05-14] MEDS: CEFEPIME 1 GM in DEXTROSE 5%-WATER 100 ML IVPB SCH ×2 (15:04→18:35)
--- NOTE | 2019-05-14 15:11 | CONS ---
INFECTIOUS DISEASE CONSULTATION DATE OF CONSULTATION: DATE OF DICTATION: 05/14/2019 HISTORY: The patient is a 73-year-old female [facility] resident history of chronic respiratory failure evaluated for sepsis. History was obtained from the chart as well as the patient's who was present at the time of the examination. [facility], she had developed persistent vomiting for 3-4 days prior to admission. She was brought to the emergency room where she was evaluated. A CAT scan of the abdomen and pelvis was performed and was negative for acute pathology. She was found to have pyuria. Cultures were obtained. She was empirically treated with ceftriaxone. The patient has a history of AMPICILLIN and CIPROFLOXACIN allergies. According to the , this occurred many years ago and was characterized by a rash. She denies history of anaphylaxis. No reports of high-grade fever, shaking chills, labored breathing, cough, grossly purulent urine. PAST MEDICAL HISTORY: Positive for chronic respiratory failure status post tracheostomy and feeding gastrostomy, diabetes mellitus, coronary artery disease, myocardial infarction, hypertension, asthma, stroke, gastroesophageal reflux, osteoporosis, vertebral compression fractures. ALLERGIES: AMPICILLIN and CIPROFLOXACIN. SOCIAL HISTORY: She is a former smoker. She [facility] in a jail facility. She is dependent in activities of daily living. SYSTEMS REVIEW: Neurologic: No loss of consciousness or seizure activity. Positive history of stroke. Cardiac: Negative chest pain or palpitations. Respiratory: Chronic respiratory failure. Gastrointestinal: As per HPI. Genitourinary: Positive for urinary tract infection. LABORATORY DATA: White count 7.2, hematocrit 29.6, platelet count 324, creatinine 1.2. Urinalysis, 648 white cells. Liver enzymes normal. Cultures are pending. Chest x-ray shows atelectasis left base. PHYSICAL EXAMINATION: General: On exam, she is awake. She is able to respond to simple questions. Vital Signs: Temperature 98.3, blood pressure 137/60, pulse 89 regular, respirations 20 per minute. HEENT: Sclerae anicteric. Patient is status post tracheostomy. Heart: Sounds S1, S2. Lungs: Coarse rhonchi bilaterally with mild, scattered wheezing. Abdomen: Soft, obese, nontender. Feeding gastrostomy tube is in place. No erythema or drainage from the site. Extremities: Negative edema. Negative Homans sign. IMPRESSION: 1. Urinary tract infection, rule out sepsis secondary to urinary tract infection. 2. Chronic respiratory failure. 3. PENICILLIN and FLUOROQUINOLONE allergies. 4. History of stroke. 5. History of asthma. 6. Acute exacerbation chronic obstructive pulmonary disease. PLAN: Vomiting likely secondary to sepsis secondary to genitourinary focus. Await culture results. Empiric antibiotic coverage with cefepime and STAT dose vancomycin. Case discussed with patient's present at the time of the examination. Thank you for the kind referral. JAYME SOLIMAN M.D. [id number]
--- NOTE | 2019-05-14 15:12 | CON.CARD ---
Consult Consult Specialty:: Cardiology Referred by:: Damian Reason for Consultation:: Chest pain - History of Present Illness Chief Complaint: Nausea/vomiting History of Present Illness: 73 year old with a pmhx of CAD s/p stent 12/2018, urosepsis, respiratory failure s/p intubation and subsequent need for Trach/PEG, dm, htn, and asthma [facility] and vomiting. Currently no chest pain but had some mild chest pain after coughing. +UA Hypercalcemia noted - Past Medical History Cardio/Vascular: Yes: CAD, HTN Pulmonary: Yes: Asthma, Previously Intubated Endocrine: Yes: Diabetes Mellitus - Alcohol/Substance Use Hx Alcohol Use: No - Smoking History Smoking history: Former smoker Have you smoked in the past 12 months: No Home Medications - Allergies Allergies/Adverse Reactions: Allergies Allergy/AdvReac Type Severity Reaction Status Date / Time No Known Allergies Allergy Verified 05/13/19 17:59 Vital Signs: Vital Signs Temperature 98.3 F 05/14/19 02:54 Pulse Rate 89 05/14/19 07:01 Respiratory Rate 17 05/14/19 12:15 Blood Pressure 137/60 05/14/19 07:01 O2 Sat by Pulse Oximetry (%) 100 05/14/19 07:01 Constitutional: Yes: No Distress Neck: Yes: Supple Respiratory: Yes: CTA Bilaterally Gastrointestinal: Yes: Soft Cardiovascular: Yes: Regular Rate and Rhythm, Tachycardia JVD: No Carotid Bruit: No Heart Sounds: Yes: S1, S2 Murmur: No: Systolic Murmur Edema: No - Other Data Labs, Other Data: CBC, BMP 05/14/19 05:51 05/14/19 05:51 INR, PTT INR 1.00 (0.83-1.09) 05/13/19 18:45 Troponin, BNP 05/13/19 18:45 Troponin I 0.03 Troponin, BNP 05/13/19 18:45 Troponin I 0.03 Imaging - Results EKG: Image Reviewed Problem List - Problems (1) Chest pain Code(s): R07.9 - CHEST PAIN, UNSPECIFIED Assessment/Plan 73 year old with a pmhx of CAD s/p stent 12/2018, urosepsis, respiratory failure s/p intubation and subsequent need for Trach/PEG, dm, htn, and asthma [facility] and vomiting. Currently no chest pain but had some mild chest pain after coughing. +UA Hypercalcemia noted 1) CAD Chest pain is atypical and when she coughs EKG sinus tachy with nonspecific T wave changes. CAD history but chest pain does not seem cardiac. Continue home aspirin/beta maria fernanda. Clarify if on statin. Clarify if on DAPT such as plavix given stent 12/2018 Treat underlying infectious issues and metabolic issues No further cardiac testing at this time.
[2019-05-14] MEDS ORDERED: INSULIN SLIDING SCALE (NOVOLOG) 1 VIAL SQ SCH (16:30)
--- NOTE | 2019-05-14 17:37 | CONSULT ---
Consult Consult Specialty:: Nephrology Reason for Consultation:: hypercalcemia - History of Present Illness Chief Complaint: nausea and vomiting History of Present Illness: Pt is a 73 year old female with pmhx of cad, asthma, chronic resp failure on vent, dm and htn who presents to the er with nausea and vomiting. SHe was found to be hypercalcemic. She is unable to give much history. She did have vomiting and diarrhea. She is normally awake and alert. She had 3 vertebral fractures in the past. She has a long history of steroid use. - History Source History Provided By: Medical Record - Past Medical History Cardio/Vascular: Yes: CAD, HTN Pulmonary: Yes: Asthma, Previously Intubated Endocrine: Yes: Diabetes Mellitus - Alcohol/Substance Use Hx Alcohol Use: No - Smoking History Smoking history: Former smoker Have you smoked in the past 12 months: No Home Medications - Allergies Allergies/Adverse Reactions: Allergies Allergy/AdvReac Type Severity Reaction Status Date / Time No Known Allergies Allergy Verified 05/13/19 17:59 Family Medical History Family History: Unable to Obtain Review of Systems Unable to obtain ROS, reason: pt on vent Physical Exam Vital Signs: Vital Signs Temperature 98.3 F 05/14/19 02:54 Pulse Rate 89 05/14/19 07:01 Respiratory Rate 17 05/14/19 12:15 Blood Pressure 137/60 05/14/19 07:01 O2 Sat by Pulse Oximetry (%) 100 05/14/19 07:01 Constitutional: Yes: Calm, Poor Hygeine Neck: Yes: Other (trache) Cardiovascular: Yes: S1, S2 Respiratory: Yes: Mechanically Ventilated Gastrointestinal: Yes: Soft Renal/: Yes: Incontinence Musculoskeletal: Yes: Muscle Weakness Edema: No Neurological: Yes: Other (awake) Labs: CBC, BMP 05/14/19 05:51 05/14/19 05:51 Laboratory Tests 05/13/19 05/14/19 05/14/19 18:45 05:51 05:51 BUN 21.8 H Creatinine 1.4 H 1.2 Calcium 12.8 H 12.7 H PTH Intact Pending PTH Intact Intraop 0 m Pending Imaging - Results Ultrasound: Report Reviewed Problem List - Problems (1) CKD (chronic kidney disease) Code(s): N18.9 - CHRONIC KIDNEY DISEASE, UNSPECIFIED (2) Hypercalcemia Code(s): E83.52 - HYPERCALCEMIA Assessment/Plan Current Medications Generic Name Dose Route Start Last Admin Trade Name Vipulq PRN Reason Stop Dose Admin Acetaminophen 650 mg 05/14/19 14:34 Tylenol Oral Solution - PO Q6H PRN PAIN LEVEL 1-5 Albuterol/Ipratropium 1 amp 05/14/19 04:00 05/14/19 12:15 Duoneb - NEB 1 amp RQ4H [facility] Administration Ascorbic Acid 500 mg 05/15/19 10:00 Vitamin C Oral Solution - GT DAILY [facility] Aspirin 81 mg 05/15/19 10:00 Asa - GT DAILY [facility] Atorvastatin Calcium 80 mg 05/14/19 22:00 Lipitor - GT HS [facility] Cholecalciferol 1,000 unit 05/15/19 10:00 Vitamin D3 - GT DAILY [facility] Clonazepam 0.5 mg 05/14/19 12:00 05/14/19 13:00 Klonopin - GT 0.5 mg Q12H [facility] Administration Docusate Sodium 50 mg 05/14/19 14:30 Colace Liquid - GT TID [facility] Ferrous Sulfate 300 mg 05/15/19 10:00 Feosol GT DAILY [facility] Furosemide 40 mg 05/15/19 10:00 Lasix Oral Solution - GT DAILY [facility] Heparin Sodium (Porcine) 5,000 unit 05/14/19 22:00 Heparin - SQ BID [facility] Cefepime HCl 1 gm/ Dextrose 100 mls @ 200 mls/hr 05/14/19 14:30 IVPB Q8H-IV [facility] Protocol Insulin Aspart 1 vial 05/14/19 16:30 Novolog Vial Sliding Scale - SQ ACHS [facility] Protocol Insulin Detemir 12 units 05/14/19 22:00 Levemir Vial SQ HS [facility] Metoprolol Tartrate 25 mg 05/14/19 22:00 Lopressor - GT BID [facility] Montelukast Sodium 10 mg 05/14/19 22:00 Singulair - GT HS [facility] Multi-Ingredient Ointment 1 applic 05/14/19 22:00 Zinc Oxide TP BID [facility] Polyethylene Glycol 17 gm 05/15/19 10:00 Miralax (For Daily Use) - GT DAILY [facility] Potassium Chloride 20 meq 05/15/19 10:00 Potassium Chloride Oral Liquid GT DAILY [facility] Prednisone 20 mg 05/15/19 10:00 Deltasone - GT DAILY [facility] Impression 1. hypercalcemia 2. DM 3. HTN 4. asthma 5. chronic resp failure 6. azotemia Plan - start fluids - cont lasix - follow pth - repeat labs in am - check calcium and albumin daily - will give a dose of calcitonin
[2019-05-14] MEDS ORDERED: CALCITONIN - SALMON SYNTHETIC 400 UNIT/2 ML VIAL SQ ONE (18:00)
[2019-05-14] MEDS ORDERED: CALCITONIN - SALMON SYNTHETIC 400 UNIT/2 ML VIAL IM ONE (18:00)
[2019-05-14] MEDS: SODIUM CHLORIDE 1,000 ML IV SCH ×2 (18:07→22:26)
[2019-05-14] MEDS ORDERED: INSULIN (LEVEMIR) 100 UNITS/ML UNITS SQ SCH (22:00)
[2019-05-14] MEDS ORDERED: MONTELUKAST NA 10 MG TABLET GT SCH (22:00)
[2019-05-14] MEDS ORDERED: ATORVASTATIN CA 80 MG TABLET (FP) GT SCH (22:00)
[2019-05-14] MEDS ORDERED: ZINC OXIDE 20% TOPICAL OINTMENT 30 GM TUBE TP SCH (22:00)
[2019-05-14] MEDS ORDERED: METOPROLOL TARTRATE 25 MG TABLET (FP) GT SCH (22:00)
[2019-05-14] MEDS: INSULIN SLIDING SCALE (NOVOLOG) 1 VIAL SQ SCH (22:46)
[2019-05-14] MEDS: ACETAMINOPHEN 650 MG/20.3 ML ORAL SOLUTION (CUPS) PO PRN (22:47)
[2019-05-14] MEDS: ATORVASTATIN CA 80 MG TABLET (FP) GT SCH (22:48)
[2019-05-14] MEDS: MONTELUKAST NA 10 MG TABLET GT SCH (22:48)
[2019-05-14] MEDS: METOPROLOL TARTRATE 25 MG TABLET (FP) GT SCH (22:48)
[2019-05-14] MEDS: HEPARIN NA (PORCINE) 5,000 UNITS/ML 1ML VIAL SQ SCH (22:49)
[2019-05-14] MEDS: DOCUSATE NA 100 MG/10 ML UNIT-DOSE CUPS GT SCH (22:52)
[2019-05-14] MEDS: INSULIN (LEVEMIR) 100 UNITS/ML UNITS SQ SCH (22:57)
[2019-05-14] MEDS: ZINC OXIDE 20% TOPICAL OINTMENT 30 GM TUBE TP SCH (23:00)
[2019-05-14] MEDS: clonazePAM 0.5 MG TABLET GT SCH (23:07)
[2019-05-15] MEDS: ALBUTEROL SO4 2.5/IPRATROPIUM 0.5 INH SOL 3 ML VIAL.NEB. NEB SCH ×6 (00:15→20:39)
[2019-05-15] MEDS ORDERED: DEXTROSE 5%-WATER 100 ML IVPB ONE ×3 (01:23→18:28)
[2019-05-15] MEDS ORDERED: CEFEPIME HCL 1 GM VIAL (RESTRICTED TO ID) ONE ×3 (01:23→18:27)
[2019-05-15] MEDS: CEFEPIME 1 GM in DEXTROSE 5%-WATER 100 ML IVPB SCH ×3 (01:51→18:52)
[2019-05-15 04:28] VITALS: BMI 29.1
[2019-05-15] MEDS: DOCUSATE NA 100 MG/10 ML UNIT-DOSE CUPS GT SCH ×3 (06:39→23:13)
[2019-05-15] MEDS: INSULIN SLIDING SCALE (NOVOLOG) 1 VIAL SQ SCH ×4 (06:40→23:19)
--- NOTE | 2019-05-15 09:00 | PN ---
Progress Note, Physician - Current Medication List Current Medications: Active Medications Acetaminophen (Tylenol Oral Solution -) 650 mg PO Q6H PRN PRN Reason: PAIN LEVEL 1-5 Last Admin: 05/14/19 22:47 Dose: 650 mg Albuterol/Ipratropium (Duoneb -) 1 amp NEB RQ4H [facility] Last Admin: 05/15/19 08:20 Dose: 1 amp Ascorbic Acid (Vitamin C Oral Solution -) 500 mg GT DAILY [facility] Aspirin (Asa -) 81 mg GT DAILY [facility] Atorvastatin Calcium (Lipitor -) 80 mg GT HS [facility] Last Admin: 05/14/19 22:48 Dose: 80 mg Cholecalciferol (Vitamin D3 -) 1,000 unit GT DAILY [facility] Clonazepam (Klonopin -) 0.5 mg GT Q12H [facility] Last Admin: 05/14/19 23:07 Dose: 0.5 mg Docusate Sodium (Colace Liquid -) 50 mg GT TID [facility] Last Admin: 05/15/19 06:39 Dose: 50 mg Ferrous Sulfate (Feosol) 300 mg GT DAILY [facility] Furosemide (Lasix Oral Solution -) 40 mg GT DAILY [facility] Heparin Sodium (Porcine) (Heparin -) 5,000 unit SQ BID [facility] Last Admin: 05/14/19 22:49 Dose: 5,000 unit Sodium Chloride (Normal Saline -) 1,000 mls @ 100 mls/hr IV ASDIR [facility] Last Admin: 05/14/19 22:26 Dose: 100 mls/hr Cefepime HCl 1 gm/ Dextrose 100 mls @ 200 mls/hr IVPB Q8H-IV [facility]; Protocol Last Admin: 05/15/19 01:51 Dose: 200 mls/hr Insulin Aspart (Novolog Vial Sliding Scale -) 1 vial SQ ACHS [facility]; Protocol Last Admin: 05/15/19 06:40 Dose: Not Given Insulin Detemir (Levemir Vial) 12 units SQ HS [facility] Last Admin: 05/14/19 22:57 Dose: 12 units Metoprolol Tartrate (Lopressor -) 25 mg GT BID [facility] Last Admin: 05/14/19 22:48 Dose: 25 mg Montelukast Sodium (Singulair -) 10 mg GT HS [facility] Last Admin: 05/14/19 22:48 Dose: 10 mg Multi-Ingredient Ointment (Zinc Oxide) 1 applic TP BID [facility] Last Admin: 05/14/19 23:00 Dose: 1 applic Polyethylene Glycol (Miralax (For Daily Use) -) 17 gm GT DAILY [facility] Potassium Chloride (Potassium Chloride Oral Liquid) 20 meq GT DAILY [facility] Prednisone (Deltasone -) 20 mg GT DAILY [facility] - Objective Vital Signs: Vital Signs Temperature 98.8 F 05/15/19 06:48 Pulse Rate 90 05/15/19 06:48 Respiratory Rate 14 05/15/19 08:18 Blood Pressure 107/39 L 05/15/19 06:48 O2 Sat by Pulse Oximetry (%) 98 05/15/19 04:15 Cardiovascular: Yes: S1, S2 Respiratory: Yes: Regular, CTA Bilaterally Gastrointestinal: Yes: Normal Bowel Sounds, Soft Labs: CBC, BMP 05/14/19 05:51 05/14/19 05:51 INR, PTT INR 1.00 (0.83-1.09) 05/13/19 18:45 Assessment/Plan - Problems (1) UTI (urinary tract infection) Assessment/Plan: -ID consult -afebrile -no leukocytosis -received Ceftriaxone in ER -UC pending Microbiology 05/13/19 22:40 Urine - Urine Clean Catch Urine Culture - Preliminary Non Lactose Fermenting Gnb -UA shows 3+ leuks, 3+ blood, 3+ protein, WBC 684.5 -LA ordered Code(s): N39.0 - URINARY TRACT INFECTION, SITE NOT SPECIFIED (2) Hypercalcemia Assessment/Plan: -Renal consult--Hem consult -12.8~12.7--10.6 -PTH pending -M-spike pending -pending serum protein electrophoresis Code(s): E83.52 - HYPERCALCEMIA (3) CKD (chronic kidney disease) Assessment/Plan: -Renal Consult -BUN/Cr 19.3/1.2 -monitor renal function daily -pending renal US Code(s): N18.9 - CHRONIC KIDNEY DISEASE, UNSPECIFIED (4) Respiratory failure with hypoxia and hypercapnia Assessment/Plan: -Pulmonary consult -mechanically ventilated -keep SpO2 >90% -Montelukast HS -Prednisone daily Code(s): J96.91 - RESPIRATORY FAILURE, UNSPECIFIED WITH HYPOXIA; J96.92 - RESPIRATORY FAILURE, UNSPECIFIED WITH HYPERCAPNIA (5) Nausea and vomiting Assessment/Plan: -CTAP shows somewhat atrophic R kidney, umbilical hernia containing non- obstructed small bowel loopsno gross evidence of acute pathology within abdomen or pelvis -no Zofran due to prolong QT -consult dietary to begin feeds -no further episodes of vomiting reported Code(s): R11.2 - NAUSEA WITH VOMITING, UNSPECIFIED (6) Chest pain Assessment/Plan: -EKG reviewed NSR -Cardiology consult -tachycardic at present will re-order EKG -troponin 0.03 Code(s): R07.9 - CHEST PAIN, UNSPECIFIED (7) Anxiety Assessment/Plan: -Psychiatry consult -Klonopin BID Code(s): F41.9 - ANXIETY DISORDER, UNSPECIFIED (8) Paranoia Assessment/Plan: -psychiatry consult Code(s): F22 - DELUSIONAL DISORDERS (9) HTN (hypertension) Assessment/Plan: -Metoprolol, Furosemide Code(s): I10 - ESSENTIAL (PRIMARY) HYPERTENSION (10) Diabetes mellitus Assessment/Plan: -BGM ACHS -Levemir BID -ISS -HgA1c Code(s): E11.9 - TYPE 2 DIABETES MELLITUS WITHOUT COMPLICATIONS (11) HLD (hyperlipidemia) Assessment/Plan: -Atorvastatin Code(s): E78.5 - HYPERLIPIDEMIA, UNSPECIFIED
[2019-05-15 09:09] LABS: HEMATOCRIT 29.4 % (32.4-45.2); HEMOGLOBIN 9.6 GM/dL (10.7-15.3); MCH 25.7 pg (25.7-33.7); MCHC 32.8 g/dl (32.0-36.0); MEAN CELL VOLUME 78.5 fl (80-96); MEAN PLT VOLUME 8.6 fl (7.5-11.1); PLATELET COUNT 318 K/MM3 (134-434); RBC 3.74 M/mm3 (3.60-5.2); RDW 16.8 % (11.6-15.6)
[2019-05-15 09:37] LABS: ALBUMIN 2.7 g/dl (3.4-5.0); BILIRUBIN,TOTAL 0.6 mg/dL (0.2-1); CALCIUM 10.6 mg/dL (8.5-10.1); CREATININE 1.2 mg/dL (0.55-1.3); POTASSIUM 3.4 mmol/L (3.5-5.1); TOT PROT 6.3 g/dl (6.4-8.2)
[2019-05-15] MEDS ORDERED: FUROSEMIDE 40 MG/5 ML UNIT-DOSE CUP GT SCH (10:00)
[2019-05-15] MEDS ORDERED: predniSONE 20 MG TABLET (UD) GT SCH (10:00)
[2019-05-15] MEDS ORDERED: POTASSIUM CHLORIDE ORAL LIQUID 20 MEQ/15 ML GT SCH (10:00)
[2019-05-15] MEDS ORDERED: FERROUS SO4 300 MG/5 ML ORAL SOLN UNIT DOSE CUPS GT SCH (10:00)
[2019-05-15] MEDS ORDERED: POLYETHYLENE GLYCOL 3350 119 GM BTL GT SCH (10:00)
[2019-05-15] MEDS ORDERED: ASCORBIC ACID 500 MG/5 ML UNIT DOSE CUP GT SCH (10:00)
[2019-05-15] MEDS ORDERED: CHOLECALCIFEROL (VIT D3) 1,000 UNIT (25 MCG) TABLET GT SCH (10:00)
[2019-05-15] MEDS ORDERED: ASPIRIN 81 MG CHEWABLE TABLETS GT SCH (10:00)
[2019-05-15] MEDS ORDERED: PT OWN MED DRAWER 7, Y5N ONE ×2 (10:08→23:04)
[2019-05-15] MEDS: POTASSIUM CHLORIDE ORAL LIQUID 20 MEQ/15 ML GT SCH (10:24)
[2019-05-15] MEDS: SODIUM CHLORIDE 1,000 ML IV SCH ×2 (10:24→18:51)
[2019-05-15] MEDS: ASCORBIC ACID 500 MG/5 ML UNIT DOSE CUP GT SCH (10:25)
[2019-05-15] MEDS: ASPIRIN 81 MG CHEWABLE TABLETS GT SCH (10:25)
[2019-05-15] MEDS: predniSONE 20 MG TABLET (UD) GT SCH (10:25)
[2019-05-15] MEDS: CHOLECALCIFEROL (VIT D3) 1,000 UNIT (25 MCG) TABLET GT SCH (10:25)
[2019-05-15] MEDS: HEPARIN NA (PORCINE) 5,000 UNITS/ML 1ML VIAL SQ SCH ×2 (10:26→23:13)
[2019-05-15] MEDS: METOPROLOL TARTRATE 25 MG TABLET (FP) GT SCH ×2 (10:26→23:14)
[2019-05-15] MEDS: FERROUS SO4 300 MG/5 ML ORAL SOLN UNIT DOSE CUPS GT SCH (10:27)
[2019-05-15] MEDS: POLYETHYLENE GLYCOL 3350 119 GM BTL GT SCH (10:27)
[2019-05-15] MEDS: ZINC OXIDE 20% TOPICAL OINTMENT 30 GM TUBE TP SCH ×2 (10:45→23:15)
[2019-05-15] MEDS ORDERED: HALOPERIDOL LACTATE 5 MG/ML IM PRN (11:32)
--- NOTE | 2019-05-15 11:37 | CON.PSY ---
Psychiatry Consult Chief Complaint: 73 Fly old female from [facility] seen for Nathaniel powers for acute agitationh and paranoid verbalizations. 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 Symptoms: reports: Aggressivity - Previous Psychiatric Treatment Outpatient: None Inpatient: None - Previous Substance Abuse Treatment Outpatient: None Inpatient: None - Current Medications Current Medications: Active Medications Acetaminophen (Tylenol Oral Solution -) 650 mg PO Q6H PRN PRN Reason: PAIN LEVEL 1-5 Last Admin: 05/14/19 22:47 Dose: 650 mg Albuterol/Ipratropium (Duoneb -) 1 amp NEB RQ4H [facility] Last Admin: 05/15/19 08:20 Dose: 1 amp Ascorbic Acid (Vitamin C Oral Solution -) 500 mg GT DAILY [facility] Last Admin: 05/15/19 10:25 Dose: 500 mg Aspirin (Asa -) 81 mg GT DAILY [facility] Last Admin: 05/15/19 10:25 Dose: 81 mg Atorvastatin Calcium (Lipitor -) 80 mg GT HS [facility] Last Admin: 05/14/19 22:48 Dose: 80 mg Cholecalciferol (Vitamin D3 -) 1,000 unit GT DAILY [facility] Last Admin: 05/15/19 10:25 Dose: 1,000 unit Clonazepam (Klonopin -) 0.5 mg GT Q12H [facility] Last Admin: 05/14/19 23:07 Dose: 0.5 mg Docusate Sodium (Colace Liquid -) 50 mg GT TID [facility] Last Admin: 05/15/19 06:39 Dose: 50 mg Ferrous Sulfate (Feosol) 300 mg GT DAILY [facility] Last Admin: 05/15/19 10:27 Dose: Not Given Furosemide (Lasix Oral Solution -) 40 mg GT DAILY [facility] Haloperidol (Haldol Injection (Fast Acting) -) 2 mg IM Q4H PRN PRN Reason: AGITATION Heparin Sodium (Porcine) (Heparin -) 5,000 unit SQ BID [facility] Last Admin: 05/15/19 10:26 Dose: 5,000 unit Sodium Chloride (Normal Saline -) 1,000 mls @ 100 mls/hr IV ASDIR [facility] Last Admin: 05/15/19 10:24 Dose: 100 mls/hr Cefepime HCl 1 gm/ Dextrose 100 mls @ 200 mls/hr IVPB Q8H-IV [facility]; Protocol Last Admin: 05/15/19 10:24 Dose: 200 mls/hr Insulin Aspart (Novolog Vial Sliding Scale -) 1 vial SQ ACHS [facility]; Protocol Last Admin: 05/15/19 06:40 Dose: Not Given Insulin Detemir (Levemir Vial) 12 units SQ [facility] Last Admin: 05/14/19 22:57 Dose: 12 units Metoprolol Tartrate (Lopressor -) 25 mg GT BID [facility] Last Admin: 05/15/19 10:26 Dose: 25 mg Montelukast Sodium (Singulair -) 10 mg GT HS [facility] Last Admin: 05/14/19 22:48 Dose: 10 mg Multi-Ingredient Ointment (Zinc Oxide) 1 applic TP BID [facility] Last Admin: 05/15/19 10:45 Dose: 1 applic Polyethylene Glycol (Miralax (For Daily Use) -) 17 gm GT DAILY [facility] Last Admin: 05/15/19 10:27 Dose: 17 gm Potassium Chloride (Potassium Chloride Oral Liquid) 20 meq GT DAILY [facility] Last Admin: 05/15/19 10:24 Dose: 20 meq Prednisone (Deltasone -) 20 mg GT DAILY [facility] Last Admin: 05/15/19 10:25 Dose: 20 mg - Allergies Allergies: Allergies Allergy/AdvReac Type Severity Reaction Status Date / Time No Known Allergies Allergy Verified 05/13/19 17:59 - Current Living Status Usual Living Arrangement: Jail - Current Mental Status Evaluation Appearance: Disheveled Attitude: Guarded - Affect Affect: Constrictive Appropriateness: Not Appropriate - Mood Mood: Irritable - Speech/Language Expressive: Delayed - Psychomotor Activity Psychomotor Activity: Hyperactive - Thought Process Thought Process: Intact - Thought Content Hallucinations: Absent Type: Persectory - Self Perception Self Perception: Depersonalization - Cognition Attention: Diminished Memory, Short Term: 2/3 Memory, Remote with Promptin/3 - Concentration Serial Sevens Intact: No Simple Calculations Intact: No - Abstraction Proverb Interpretation: Impaired Judgement: Moderately Impaired - Insight Insight: Impaired - Impulse Control Impulse Control: Moderately Impaired - Suicidal Ideation Suicidal Ideation: No - Homicidal Ideation Homicidal Ideation: No Assessment/Plan 1) Haldol 2mg IM Q4rs prn for acute agiation and Paranoia.
--- NOTE | 2019-05-15 15:03 | PN ---
Progress Note, Physician History of Present Illness: LETHARGIC NO ACUTE DISTRESS BREATHING NON-LABORED LOW GRADE TEMP TOLERATING CEPHALOSPORIN BC PRELIM NO GROWTH URINE C/S NLF - Current Medication List Current Medications: Active Medications Acetaminophen (Tylenol Oral Solution -) 650 mg PO Q6H PRN PRN Reason: PAIN LEVEL 1-5 Last Admin: 05/14/19 22:47 Dose: 650 mg Albuterol/Ipratropium (Duoneb -) 1 amp NEB RQ4H [facility] Last Admin: 05/15/19 12:27 Dose: 1 amp Ascorbic Acid (Vitamin C Oral Solution -) 500 mg GT DAILY [facility] Last Admin: 05/15/19 10:25 Dose: 500 mg Aspirin (Asa -) 81 mg GT DAILY [facility] Last Admin: 05/15/19 10:25 Dose: 81 mg Atorvastatin Calcium (Lipitor -) 80 mg GT HS [facility] Last Admin: 05/14/19 22:48 Dose: 80 mg Cholecalciferol (Vitamin D3 -) 1,000 unit GT DAILY [facility] Last Admin: 05/15/19 10:25 Dose: 1,000 unit Clonazepam (Klonopin -) 0.5 mg GT Q12H [facility] Last Admin: 05/14/19 23:07 Dose: 0.5 mg Docusate Sodium (Colace Liquid -) 50 mg GT TID [facility] Last Admin: 05/15/19 06:39 Dose: 50 mg Ferrous Sulfate (Feosol) 300 mg GT DAILY [facility] Last Admin: 05/15/19 10:27 Dose: Not Given Furosemide (Lasix Oral Solution -) 40 mg GT DAILY [facility] Haloperidol (Haldol Injection (Fast Acting) -) 2 mg IM Q4H PRN PRN Reason: AGITATION Heparin Sodium (Porcine) (Heparin -) 5,000 unit SQ BID [facility] Last Admin: 05/15/19 10:26 Dose: 5,000 unit Sodium Chloride (Normal Saline -) 1,000 mls @ 100 mls/hr IV ASDIR [facility] Last Admin: 05/15/19 10:24 Dose: 100 mls/hr Cefepime HCl 1 gm/ Dextrose 100 mls @ 200 mls/hr IVPB Q8H-IV [facility]; Protocol Last Admin: 05/15/19 10:24 Dose: 200 mls/hr Insulin Aspart (Novolog Vial Sliding Scale -) 1 vial SQ ACHS [facility]; Protocol Last Admin: 05/15/19 06:40 Dose: Not Given Insulin Detemir (Levemir Vial) 12 units SQ HS [facility] Last Admin: 05/14/19 22:57 Dose: 12 units Metoprolol Tartrate (Lopressor -) 25 mg GT BID [facility] Last Admin: 05/15/19 10:26 Dose: 25 mg Montelukast Sodium (Singulair -) 10 mg GT HS [facility] Last Admin: 05/14/19 22:48 Dose: 10 mg Multi-Ingredient Ointment (Zinc Oxide) 1 applic TP BID [facility] Last Admin: 05/15/19 10:45 Dose: 1 applic Polyethylene Glycol (Miralax (For Daily Use) -) 17 gm GT DAILY [facility] Last Admin: 05/15/19 10:27 Dose: 17 gm Potassium Chloride (Potassium Chloride Oral Liquid) 20 meq GT DAILY [facility] Last Admin: 05/15/19 10:24 Dose: 20 meq Prednisone (Deltasone -) 20 mg GT DAILY [facility] Last Admin: 05/15/19 10:25 Dose: 20 mg - Objective Vital Signs: Vital Signs Temperature 98.8 F 05/15/19 06:48 Pulse Rate 90 05/15/19 06:48 Respiratory Rate 16 05/15/19 12:25 Blood Pressure 107/39 L 05/15/19 06:48 O2 Sat by Pulse Oximetry (%) 98 05/15/19 04:15 Constitutional: Yes: No Distress Eyes: Yes: Conjunctiva Clear Cardiovascular: Yes: Regular Rate and Rhythm, S1, S2 Respiratory: Yes: Diminished Gastrointestinal: Yes: Normal Bowel Sounds, Soft, Abdomen, Obese. No: Tenderness Edema: Yes Labs: CBC, BMP 05/15/19 08:36 05/15/19 08:36 INR, PTT INR 1.00 (0.83-1.09) 05/13/19 18:45 Assessment/Plan UTI/ SEPSIS SECONDARY TO UTI VOMITING CHRONIC RESP FAILURE PCN/ QUINOLONE ALLERGIES CVA AWAIT C/S CONTINUE EMPIRIC CEFEPIME
--- NOTE | 2019-05-15 15:19 | EKG ---
Test Reason : Blood Pressure : / mmHG Vent. Rate : 105 BPM Atrial Rate : 105 BPM P-R Int : 160 ms QRS Dur : 108 ms QT Int : 388 ms P-R-T Axes : 055 042 020 degrees QTc Int : 512 ms SINUS TACHYCARDIA WITH OCCASIONAL PREMATURE VENTRICULAR COMPLEXES INCOMPLETE RIGHT BUNDLE BRANCH BLOCK Confirmed by JAYME FELIX MD ([id number]) on 05/15/2019 3:19:45 PM Referred By: Confirmed By:JAYME FELIX MD
[2019-05-15] MEDS: clonazePAM 0.5 MG TABLET GT SCH ×2 (15:35→23:13)
[2019-05-15] MEDS: FUROSEMIDE 40 MG/5 ML UNIT-DOSE CUP GT SCH (15:35)
--- NOTE | 2019-05-15 16:05 | PN ---
Progress Note (short form) - Note Progress Note: PULMONARY 14/450/35/AC MODE VSS/AFEBRILE Constitutional: Yes: Anxious Eyes: Yes: Conjunctiva Clear, EOM Intact HENT: Yes: Atraumatic, Normocephalic Neck: Yes: Supple, Trachea Midline Cardiovascular: Yes: Regular Rate and Rhythm Respiratory: Yes: Rhonchi, Wheezes ...Clubbing: No Gastrointestinal: Yes: Normal Bowel Sounds, Soft. No: Tenderness Edema: No Neurological: Yes: Alert, Oriented Labs: REVIEWED Imaging NOTED Assessment/Plan Chronic Respiratory Failure UTI CAD Asthma HTN DM - IV antibiotics - f/u cultures - inhaled bronchodilators - O2 to keep Spo2 >90% - on prednisone - if continues to wheeze, may need short course of medrol - singulair - enteral feeds - DVT/GI prophylaxis Jae LOPEZ MD
--- NOTE | 2019-05-15 16:25 | PN ---
Progress Note, Physician History of Present Illness: Pt seen and examined at bedside. She appears comfortable. - Current Medication List Current Medications: Active Medications Acetaminophen (Tylenol Oral Solution -) 650 mg PO Q6H PRN PRN Reason: PAIN LEVEL 1-5 Last Admin: 05/14/19 22:47 Dose: 650 mg Albuterol/Ipratropium (Duoneb -) 1 amp NEB RQ4H [facility] Last Admin: 05/15/19 12:27 Dose: 1 amp Ascorbic Acid (Vitamin C Oral Solution -) 500 mg GT DAILY [facility] Last Admin: 05/15/19 10:25 Dose: 500 mg Aspirin (Asa -) 81 mg GT DAILY [facility] Last Admin: 05/15/19 10:25 Dose: 81 mg Atorvastatin Calcium (Lipitor -) 80 mg GT HS [facility] Last Admin: 05/14/19 22:48 Dose: 80 mg Cholecalciferol (Vitamin D3 -) 1,000 unit GT DAILY [facility] Last Admin: 05/15/19 10:25 Dose: 1,000 unit Clonazepam (Klonopin -) 0.5 mg GT Q12H [facility] Last Admin: 05/15/19 15:35 Dose: 0.5 mg Docusate Sodium (Colace Liquid -) 50 mg GT TID [facility] Last Admin: 05/15/19 15:07 Dose: Not Given Ferrous Sulfate (Feosol) 300 mg GT DAILY [facility] Last Admin: 05/15/19 10:27 Dose: Not Given Furosemide (Lasix Oral Solution -) 40 mg GT DAILY [facility] Last Admin: 05/15/19 15:35 Dose: 40 mg Haloperidol (Haldol Injection (Fast Acting) -) 2 mg IM Q4H PRN PRN Reason: AGITATION Heparin Sodium (Porcine) (Heparin -) 5,000 unit SQ BID [facility] Last Admin: 05/15/19 10:26 Dose: 5,000 unit Sodium Chloride (Normal Saline -) 1,000 mls @ 100 mls/hr IV ASDIR [facility] Last Admin: 05/15/19 10:24 Dose: 100 mls/hr Cefepime HCl 1 gm/ Dextrose 100 mls @ 200 mls/hr IVPB Q8H-IV [facility]; Protocol Last Admin: 05/15/19 10:24 Dose: 200 mls/hr Insulin Aspart (Novolog Vial Sliding Scale -) 1 vial SQ ACHS [facility]; Protocol Last Admin: 05/15/19 15:06 Dose: Not Given Insulin Detemir (Levemir Vial) 12 units SQ [facility] Last Admin: 05/14/19 22:57 Dose: 12 units Metoprolol Tartrate (Lopressor -) 25 mg GT BID [facility] Last Admin: 05/15/19 10:26 Dose: 25 mg Montelukast Sodium (Singulair -) 10 mg GT HS [facility] Last Admin: 05/14/19 22:48 Dose: 10 mg Multi-Ingredient Ointment (Zinc Oxide) 1 applic TP BID [facility] Last Admin: 05/15/19 10:45 Dose: 1 applic Polyethylene Glycol (Miralax (For Daily Use) -) 17 gm GT DAILY [facility] Last Admin: 05/15/19 10:27 Dose: 17 gm Potassium Chloride (Potassium Chloride Oral Liquid) 20 meq GT DAILY [facility] Last Admin: 05/15/19 10:24 Dose: 20 meq Prednisone (Deltasone -) 20 mg GT DAILY [facility] Last Admin: 05/15/19 10:25 Dose: 20 mg - Objective Vital Signs: Vital Signs Temperature 98.8 F 05/15/19 06:48 Pulse Rate 90 05/15/19 06:48 Respiratory Rate 16 05/15/19 12:25 Blood Pressure 107/39 L 05/15/19 06:48 O2 Sat by Pulse Oximetry (%) 98 05/15/19 04:15 Constitutional: Yes: Calm Eyes: Yes: Conjunctiva Clear HENT: Yes: Atraumatic Neck: Yes: Supple Cardiovascular: Yes: S1, S2 Respiratory: Yes: CTA Bilaterally Gastrointestinal: Yes: Normal Bowel Sounds, Soft Genitourinary: Yes: Incontinence Musculoskeletal: Yes: Muscle Weakness Edema: No Neurological: Yes: Lethargy Labs: CBC, BMP 05/15/19 08:36 05/15/19 08:36 INR, PTT INR 1.00 (0.83-1.09) 05/13/19 18:45 Problem List - Problems (1) CKD (chronic kidney disease) Code(s): N18.9 - CHRONIC KIDNEY DISEASE, UNSPECIFIED (2) Hypercalcemia Code(s): E83.52 - HYPERCALCEMIA Assessment/Plan Current Medications Generic Name Dose Route Start Last Admin Trade Name Freq PRN Reason Stop Dose Admin Acetaminophen 650 mg 05/14/19 20:44 05/14/19 22:47 Tylenol Oral Solution - PO 650 mg Q6H PRN Administration PAIN LEVEL 1-5 Albuterol/Ipratropium 1 amp 05/15/19 00:00 05/15/19 12:27 Duoneb - NEB 1 amp RQ4H [facility] Administration Ascorbic Acid 500 mg 05/15/19 10:00 05/15/19 10:25 Vitamin C Oral Solution - GT 500 mg DAILY [facility] Administration Aspirin 81 mg 05/15/19 10:00 05/15/19 10:25 Asa - GT 81 mg DAILY [facility] Administration Atorvastatin Calcium 80 mg 05/14/19 22:00 05/14/19 22:48 Lipitor - GT 80 mg HS [facility] Administration Cholecalciferol 1,000 unit 05/15/19 10:00 05/15/19 10:25 Vitamin D3 - GT 1,000 unit DAILY [facility] Administration Clonazepam 0.5 mg 05/15/19 00:00 05/15/19 15:35 Klonopin - GT 0.5 mg Q12H [facility] Administration Docusate Sodium 50 mg 05/14/19 22:00 05/15/19 15:07 Colace Liquid - GT Not Given TID [facility] Ferrous Sulfate 300 mg 05/15/19 10:00 05/15/19 10:27 Feosol GT Not Given DAILY [facility] Furosemide 40 mg 05/15/19 10:00 05/15/19 15:35 Lasix Oral Solution - GT 40 mg DAILY [facility] Administration Haloperidol 2 mg 05/15/19 11:32 Haldol Injection (Fast Acting) - IM Q4H PRN AGITATION Heparin Sodium (Porcine) 5,000 unit 05/14/19 22:00 05/15/19 10:26 Heparin - SQ 5,000 unit BID [facility] Administration Sodium Chloride 1,000 mls @ 100 mls/hr 05/14/19 17:45 05/15/19 10:24 Normal Saline - IV 100 mls/hr ASDIR [facility] Administration Cefepime HCl 1 gm/ Dextrose 100 mls @ 200 mls/hr 05/15/19 02:00 05/15/19 10: 24 IVPB 200 mls/hr Q8H-IV [facility] Administration Protocol Insulin Aspart 1 vial 05/14/19 22:00 05/15/19 15:06 Novolog Vial Sliding Scale - SQ Not Given ACHS [facility] Protocol Insulin Detemir 12 units 05/14/19 22:00 05/14/19 22:57 Levemir Vial SQ 12 units HS [facility] Administration Metoprolol Tartrate 25 mg 05/14/19 22:00 05/15/19 10:26 Lopressor - GT 25 mg BID [facility] Administration Montelukast Sodium 10 mg 05/14/19 22:00 05/14/19 22:48 Singulair - GT 10 mg HS [facility] Administration Multi-Ingredient Ointment 1 applic 05/14/19 22:00 05/15/19 10:45 Zinc Oxide TP 1 applic BID [facility] Administration Polyethylene Glycol 17 gm 05/15/19 10:00 05/15/19 10:27 Miralax (For Daily Use) - GT 17 gm DAILY [facility] Administration Potassium Chloride 20 meq 05/15/19 10:00 05/15/19 10:24 Potassium Chloride Oral Liquid GT 20 meq DAILY [facility] Administration Prednisone 20 mg 05/15/19 10:00 05/15/19 10:25 Deltasone - GT 20 mg DAILY [facility] Administration Impression 1. hypercalcemia 2. DM 3. HTN 4. asthma 5. chronic resp failure 6. azotemia Plan - calcium improving - cont fluids - cont potassium suppls - cont lasix - pth is low - oncology eval - check spep and light chains
--- NOTE | 2019-05-15 19:11 | PN ---
Progress Note (short form) - Note Progress Note: Consult dictated 73 year old enters with nausea, emesis, hypercalcemic with Ca++ 12.8 which has improved to 10.6 with hydration. Hx of CAD, chronic respiratory failure tracheostomy, tube feedings . 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 Last Vital Signs Temp Pulse Resp BP Pulse Ox 98.8 F 90 14 150/65 98 05/15/19 06:48 05/15/19 14:00 05/15/19 16:23 05/15/19 14:00 05/15/19 04:15 HEENT: SANTOS, EOM Intact Oropharynx: No thrush, No mucositis Neck:tracheostomy Nodes: Without adenopathy Breasts: Without masses Cor: RSR, No murmurs, No gallops Lungs: Clear to P&A Abd: Soft, Normal bowel sounds, No organomegaly,PEG Ext:No significant edema Skin: No rashes, Integument intact CBC, BMP 05/15/19 08:36 05/15/19 08:36 Abnormal Lab Results 05/14/19 05/15/19 05/15/19 05:51 08:36 08:36 Hgb 9.6 L Hct 29.4 L MCV 78.5 L RDW 16.8 H Potassium 3.4 L Chloride 108 H Anion Gap 7 L Random Glucose 213 H Calcium 12.4 H 10.6 H Total Protein 6.3 L Albumin 2.7 L PTH Intact 10 L Current Medications Generic Name Dose Route Start Last Admin Trade Name Freq PRN Reason Stop Dose Admin Acetaminophen 650 mg 05/14/19 20:44 05/14/19 22:47 Tylenol Oral Solution - PO 650 mg Q6H PRN Administration PAIN LEVEL 1-5 Albuterol/Ipratropium 1 amp 05/15/19 00:00 05/15/19 16:25 Duoneb - NEB 1 amp RQ4H [facility] Administration Ascorbic Acid 500 mg 05/15/19 10:00 05/15/19 10:25 Vitamin C Oral Solution - GT 500 mg DAILY [facility] Administration Aspirin 81 mg 05/15/19 10:00 05/15/19 10:25 Asa - GT 81 mg DAILY [facility] Administration Atorvastatin Calcium 80 mg 05/14/19 22:00 05/14/19 22:48 Lipitor - GT 80 mg HS [facility] Administration Cholecalciferol 1,000 unit 05/15/19 10:00 05/15/19 10:25 Vitamin D3 - GT 1,000 unit DAILY [facility] Administration Clonazepam 0.5 mg 05/15/19 00:00 05/15/19 15:35 Klonopin - GT 0.5 mg Q12H [facility] Administration Docusate Sodium 50 mg 05/14/19 22:00 05/15/19 15:07 Colace Liquid - GT Not Given TID [facility] Ferrous Sulfate 300 mg 05/15/19 10:00 05/15/19 10:27 Feosol GT Not Given DAILY [facility] Furosemide 40 mg 05/15/19 10:00 05/15/19 15:35 Lasix Oral Solution - GT 40 mg DAILY [facility] Administration Haloperidol 2 mg 05/15/19 11:32 Haldol Injection (Fast Acting) - IM Q4H PRN AGITATION Heparin Sodium (Porcine) 5,000 unit 05/14/19 22:00 05/15/19 10:26 Heparin - SQ 5,000 unit BID [facility] Administration Sodium Chloride 1,000 mls @ 100 mls/hr 05/14/19 17:45 05/15/19 18:51 Normal Saline - IV 100 mls/hr ASDIR [facility] Administration Cefepime HCl 1 gm/ Dextrose 100 mls @ 200 mls/hr 05/15/19 02:00 05/15/19 18: 52 IVPB 200 mls/hr Q8H-IV [facility] Administration Protocol Insulin Aspart 1 vial 05/14/19 22:00 05/15/19 18:52 Novolog Vial Sliding Scale - SQ 6 unit ACHS [facility] Administration Protocol Insulin Detemir 12 units 05/14/19 22:00 05/14/19 22:57 Levemir Vial SQ 12 units HS [facility] Administration Metoprolol Tartrate 25 mg 05/14/19 22:00 05/15/19 10:26 Lopressor - GT 25 mg BID [facility] Administration Montelukast Sodium 10 mg 05/14/19 22:00 05/14/19 22:48 Singulair - GT 10 mg HS [facility] Administration Multi-Ingredient Ointment 1 applic 05/14/19 22:00 05/15/19 10:45 Zinc Oxide TP 1 applic BID [facility] Administration Polyethylene Glycol 17 gm 05/15/19 10:00 05/15/19 10:27 Miralax (For Daily Use) - GT 17 gm DAILY [facility] Administration Potassium Chloride 20 meq 05/15/19 10:00 05/15/19 10:24 Potassium Chloride Oral Liquid GT 20 meq DAILY [facility] Administration Prednisone 20 mg 05/15/19 10:00 05/15/19 10:25 Deltasone - GT 20 mg DAILY [facility] Administration Impresion: Chronic respiratory failure/trach PEG-tube feedings Nausea/emesis Uti/sepsis Anemia- Fe+-30/ TIBC 255- Sat--11% consistent with chronic disease cannot exclude component of blood loss Hypercalcemia- No M component, PTH- 10 PTHrP pending Ca++ has corrected to 10.6 ( corrected about 11.6) Reverse A/G but no "M" component. Await PthrP.
--- NOTE | 2019-05-15 21:02 | CONS ---
DATE OF CONSULTATION: 05/15/2019 HISTORY OF PRESENT ILLNESS: This 73-year-old female enters with nausea and vomiting and hypercalcemia. On admission, calcium was 12.8. Patient has a past history of hypertension, diabetes, asthma, chronic respiratory failure with a tracheostomy. Has a history of coronary artery disease. There is a history of coronary artery disease. There is a history of PEG. The patient has been . Patient has a urinary tract infection and presumed sepsis secondary to the same. Patient is a former smoker, nondrinker. CURRENT MEDICATIONS: Include prednisone, Tylenol, cefepime, heparin, Haldol, Klonopin, DuoNeb, Lopressor, Colace, MiraLAX, saline, Lipitor, and sliding scale insulin. ALLERGIES: No known allergies. CURRENT PHYSICAL EXAMINATION: Vital Signs: Blood pressure 150/65, pulse 90, respiratory rate 22, currently afebrile. HEENT: Patient has a PEG. Pupils are reactive. Oropharynx unremarkable. Lungs: Relatively clear. Breast: No dominant masses. Cardiac: RSR. Abdomen: PEG. Soft. SCDs. LABORATORY: 142 sodium, potassium 3.4, chloride 108, BUN 16, creatinine 1.2, GFR 44, glucose 213, current calcium 10.6 was 12.8, AST 20, ALT 15, alkaline phosphatase 115, protein 6.3, albumin 2.7. which is low. PTHrP is pending. There is no M-component. Abdominal and pelvic CT, somewhat atrophic right kidney, umbilical hernia containing small bowel. No other significant pathology. Chest x-ray reveals tracheostomy tube, unfolded aorta, dominant hilum, vascular structures are prominent, questionable atelectasis. Patient has a feeding tube. IMPRESSION: Anemia, serum iron 30, TIBC 255, saturation 11%. Picture compatible with chronic disease, cannot exclude component of blood loss anemia. Normal PTH. No M-component. PTHrP currently pending. Will await results. Currently calcium is improved with hydration. JUAN PABLO CASTILLO M.D. [id number]
[2019-05-15] MEDS: MONTELUKAST NA 10 MG TABLET GT SCH (23:13)
[2019-05-15] MEDS: ATORVASTATIN CA 80 MG TABLET (FP) GT SCH (23:15)
[2019-05-15] MEDS: INSULIN (LEVEMIR) 100 UNITS/ML UNITS SQ SCH (23:19)
[2019-05-16] MEDS: ALBUTEROL SO4 2.5/IPRATROPIUM 0.5 INH SOL 3 ML VIAL.NEB. NEB SCH ×6 (00:20→21:37)
[2019-05-16] MEDS ORDERED: DEXTROSE 5%-WATER 100 ML IVPB ONE ×3 (01:17→17:33)
[2019-05-16] MEDS ORDERED: CEFEPIME HCL 1 GM VIAL (RESTRICTED TO ID) ONE ×3 (01:17→17:33)
[2019-05-16] MEDS: CEFEPIME 1 GM in DEXTROSE 5%-WATER 100 ML IVPB SCH ×3 (01:56→18:04)
[2019-05-16] MEDS: DOCUSATE NA 100 MG/10 ML UNIT-DOSE CUPS GT SCH ×3 (06:36→22:19)
[2019-05-16] MEDS: INSULIN SLIDING SCALE (NOVOLOG) 1 VIAL SQ SCH ×4 (06:37→22:28)
--- NOTE | 2019-05-16 11:00 | PN ---
Progress Note (short form) - Note Progress Note: Renal follow up for hypercalcemia Coverage for Dr. Lanza Seen and examined at the bedside on vent via trach awake and alert no acute complaints no overnight events Vital Signs Temperature 99.6 F 05/16/19 05:43 Pulse Rate 96 H 05/16/19 05:43 Respiratory Rate 19 05/16/19 08:08 Blood Pressure 143/81 05/16/19 05:43 O2 Sat by Pulse Oximetry (%) 99 05/15/19 21:00 Intake & Output 05/13/19 05/14/19 05/15/19 05/16/19 23:59 23:59 23:59 23:59 Intake Total 992 214 0545 Balance 592 253 7779 Weight 90.718 kg 84.368 kg 84.368 kg NAD awake and alert on vent via trach RRR Dec BS at lung bases soft NT/ND trace edema in LE CBC, BMP 05/15/19 08:36 05/15/19 08:36 Current Medications Acetaminophen (Tylenol Oral Solution -) 650 mg PO Q6H PRN PRN Reason: PAIN LEVEL 1-5 Last Admin: 05/14/19 22:47 Dose: 650 mg Albuterol/Ipratropium (Duoneb -) 1 amp NEB RQ4H [facility] Last Admin: 05/16/19 08:06 Dose: 1 amp Ascorbic Acid (Vitamin C Oral Solution -) 500 mg GT DAILY [facility] Last Admin: 05/15/19 10:25 Dose: 500 mg Aspirin (Asa -) 81 mg GT DAILY [facility] Last Admin: 05/15/19 10:25 Dose: 81 mg Atorvastatin Calcium (Lipitor -) 80 mg GT HS [facility] Last Admin: 05/15/19 23:15 Dose: 80 mg Cholecalciferol (Vitamin D3 -) 1,000 unit GT DAILY [facility] Last Admin: 05/15/19 10:25 Dose: 1,000 unit Clonazepam (Klonopin -) 0.5 mg GT Q12H [facility] Last Admin: 05/15/19 23:13 Dose: 0.5 mg Docusate Sodium (Colace Liquid -) 50 mg GT TID [facility] Last Admin: 05/16/19 06:36 Dose: 50 mg Ferrous Sulfate (Feosol) 300 mg GT DAILY [facility] Last Admin: 05/15/19 10:27 Dose: Not Given Furosemide (Lasix Oral Solution -) 40 mg GT DAILY [facility] Last Admin: 05/15/19 15:35 Dose: 40 mg Haloperidol (Haldol Injection (Fast Acting) -) 2 mg IM Q4H PRN PRN Reason: AGITATION Heparin Sodium (Porcine) (Heparin -) 5,000 unit SQ BID [facility] Last Admin: 05/15/19 23:13 Dose: 5,000 unit Sodium Chloride (Normal Saline -) 1,000 mls @ 100 mls/hr IV ASDIR [facility] Last Admin: 05/15/19 18:51 Dose: 100 mls/hr Cefepime HCl 1 gm/ Dextrose 100 mls @ 200 mls/hr IVPB Q8H-IV [facility]; Protocol Last Admin: 05/16/19 01:56 Dose: 200 mls/hr Insulin Aspart (Novolog Vial Sliding Scale -) 1 vial SQ ACHS [facility]; Protocol Last Admin: 05/16/19 06:37 Dose: 4 unit Insulin Detemir (Levemir Vial) 12 units SQ HS [facility] Last Admin: 05/15/19 23:19 Dose: 12 units Metoprolol Tartrate (Lopressor -) 25 mg GT BID [facility] Last Admin: 05/15/19 23:14 Dose: 25 mg Montelukast Sodium (Singulair -) 10 mg GT HS [facility] Last Admin: 05/15/19 23:13 Dose: 10 mg Multi-Ingredient Ointment (Zinc Oxide) 1 applic TP BID [facility] Last Admin: 05/15/19 23:15 Dose: 1 applic Polyethylene Glycol (Miralax (For Daily Use) -) 17 gm GT DAILY [facility] Last Admin: 05/15/19 10:27 Dose: 17 gm Potassium Chloride (Potassium Chloride Oral Liquid) 20 meq GT DAILY [facility] Last Admin: 05/15/19 10:24 Dose: 20 meq Prednisone (Deltasone -) 20 mg GT DAILY [facility] Last Admin: 05/15/19 10:25 Dose: 20 mg Impression 1. hypercalcemia 2. DM 3. HTN 4. asthma 5. chronic resp failure 6. azotemia Plan Corrected Ca 11.6 as of yesterday Continue IVF for now, will add KCl to IVF todays labs pending Continue vent support f/u additional imaging studies Thank you Hussein Odell DO
[2019-05-16] MEDS: POTASSIUM CHLORIDE ORAL LIQUID 20 MEQ/15 ML GT SCH (11:07)
[2019-05-16] MEDS: ASCORBIC ACID 500 MG/5 ML UNIT DOSE CUP GT SCH (11:07)
[2019-05-16] MEDS: FUROSEMIDE 40 MG/5 ML UNIT-DOSE CUP GT SCH (11:07)
[2019-05-16] MEDS: FERROUS SO4 300 MG/5 ML ORAL SOLN UNIT DOSE CUPS GT SCH (11:08)
[2019-05-16] MEDS: predniSONE 20 MG TABLET (UD) GT SCH (11:08)
[2019-05-16] MEDS: HEPARIN NA (PORCINE) 5,000 UNITS/ML 1ML VIAL SQ SCH ×2 (11:08→22:27)
[2019-05-16] MEDS: CHOLECALCIFEROL (VIT D3) 1,000 UNIT (25 MCG) TABLET GT SCH (11:08)
[2019-05-16] MEDS: METOPROLOL TARTRATE 25 MG TABLET (FP) GT SCH ×2 (11:08→22:19)
[2019-05-16] MEDS: ASPIRIN 81 MG CHEWABLE TABLETS GT SCH (11:08)
--- NOTE | 2019-05-16 11:39 | PN ---
Progress Note, Physician Chief Complaint: UTI Hypercalcemia Nausea/Vomiting History of Present Illness: Previous notes and events reviewed awake and alert mechanically ventilated denies chest pain, tachycardic denies SOB or dizziness UC positive no leukocytosis afebrile - Current Medication List Current Medications: Active Medications Acetaminophen (Tylenol Oral Solution -) 650 mg PO Q6H PRN PRN Reason: PAIN LEVEL 1-5 Last Admin: 05/14/19 22:47 Dose: 650 mg Albuterol/Ipratropium (Duoneb -) 1 amp NEB RQ4H [facility] Last Admin: 05/16/19 08:06 Dose: 1 amp Ascorbic Acid (Vitamin C Oral Solution -) 500 mg GT DAILY [facility] Last Admin: 05/15/19 10:25 Dose: 500 mg Aspirin (Asa -) 81 mg GT DAILY [facility] Last Admin: 05/15/19 10:25 Dose: 81 mg Atorvastatin Calcium (Lipitor -) 80 mg GT HS [facility] Last Admin: 05/15/19 23:15 Dose: 80 mg Cholecalciferol (Vitamin D3 -) 1,000 unit GT DAILY [facility] Last Admin: 05/15/19 10:25 Dose: 1,000 unit Clonazepam (Klonopin -) 0.5 mg GT Q12H [facility] Last Admin: 05/15/19 23:13 Dose: 0.5 mg Docusate Sodium (Colace Liquid -) 50 mg GT TID [facility] Last Admin: 05/16/19 06:36 Dose: 50 mg Ferrous Sulfate (Feosol) 300 mg GT DAILY [facility] Last Admin: 05/15/19 10:27 Dose: Not Given Furosemide (Lasix Oral Solution -) 40 mg GT DAILY [facility] Last Admin: 05/15/19 15:35 Dose: 40 mg Haloperidol (Haldol Injection (Fast Acting) -) 2 mg IM Q4H PRN PRN Reason: AGITATION Heparin Sodium (Porcine) (Heparin -) 5,000 unit SQ BID [facility] Last Admin: 05/15/19 23:13 Dose: 5,000 unit Cefepime HCl 1 gm/ Dextrose 100 mls @ 200 mls/hr IVPB Q8H-IV [facility]; Protocol Last Admin: 05/16/19 01:56 Dose: 200 mls/hr Potassium Chloride/Sodium Chloride (Ns+20 Meq Kcl -) 20 meq in 1,000 mls @ 100 mls/hr IV ASDIR [facility] Insulin Aspart (Novolog Vial Sliding Scale -) 1 vial SQ ACHS [facility]; Protocol Last Admin: 05/16/19 06:37 Dose: 4 unit Insulin Detemir (Levemir Vial) 12 units SQ [facility] Last Admin: 05/15/19 23:19 Dose: 12 units Metoprolol Tartrate (Lopressor -) 25 mg GT BID [facility] Last Admin: 05/15/19 23:14 Dose: 25 mg Montelukast Sodium (Singulair -) 10 mg GT HS [facility] Last Admin: 05/15/19 23:13 Dose: 10 mg Multi-Ingredient Ointment (Zinc Oxide) 1 applic TP BID [facility] Last Admin: 05/15/19 23:15 Dose: 1 applic Polyethylene Glycol (Miralax (For Daily Use) -) 17 gm GT DAILY [facility] Last Admin: 05/15/19 10:27 Dose: 17 gm Potassium Chloride (Potassium Chloride Oral Liquid) 20 meq GT DAILY [facility] Last Admin: 05/15/19 10:24 Dose: 20 meq Prednisone (Deltasone -) 20 mg GT DAILY [facility] Last Admin: 05/15/19 10:25 Dose: 20 mg - Objective Vital Signs: Vital Signs Temperature 99.6 F 05/16/19 05:43 Pulse Rate 96 H 05/16/19 05:43 Respiratory Rate 19 05/16/19 08:08 Blood Pressure 143/81 05/16/19 05:43 O2 Sat by Pulse Oximetry (%) 99 05/15/19 21:00 Constitutional: Yes: No Distress, Calm Eyes: Yes: Conjunctiva Clear HENT: Yes: Atraumatic Neck: Yes: Other (trach) Cardiovascular: Yes: Tachycardia Respiratory: Yes: Regular, Diminished, Mechanically Ventilated Gastrointestinal: Yes: Normal Bowel Sounds, Soft, Other (Gtube) Genitourinary: Yes: Incontinence Musculoskeletal: Yes: Muscle Weakness Extremities: Yes: WNL Edema: No Neurological: Yes: Alert, Oriented, Pre-Existing Deficit Psychiatric: Yes: Alert, Oriented Labs: CBC, BMP 05/15/19 08:36 05/15/19 08:36 INR, PTT INR 1.00 (0.83-1.09) 05/13/19 18:45 Microbiology 05/13/19 22:40 Urine - Urine Clean Catch Urine Culture - Final Escherichia Coli Esbl Film Numberer 05/15/19 02:20 Blood - Peripheral Venous Blood Culture - Preliminary NO GROWTH OBTAINED AFTER 24 HOURS, INCUBATION TO CONTINUE FOR 4 DAYS. 05/15/19 02:20 Blood - Peripheral Venous Blood Culture - Preliminary NO GROWTH OBTAINED AFTER 24 HOURS, INCUBATION TO CONTINUE FOR 4 DAYS. Problem List - Problems (1) UTI (urinary tract infection) Assessment/Plan: -ID consult -afebrile -no leukocytosis -Cefepime -UC positive -UA shows 3+ leuks, 3+ blood, 3+ protein, WBC 684.5 Code(s): N39.0 - URINARY TRACT INFECTION, SITE NOT SPECIFIED (2) Hypercalcemia Assessment/Plan: -Renal on board -12.8~12.7~10.6 -PTH 10 -M-spike not observed -pending serum protein electrophoresis Code(s): E83.52 - HYPERCALCEMIA (3) CKD (chronic kidney disease) Assessment/Plan: -Renal on board -BUN/Cr 16.0/1.2 -monitor renal function daily -Renal US shows both kidneys are small and appear morphologically unremarkable, no gross renal stones or hydronephrosis, fatty infiltration of the liver vs hepatocellular disease Code(s): N18.9 - CHRONIC KIDNEY DISEASE, UNSPECIFIED (4) Respiratory failure with hypoxia and hypercapnia Assessment/Plan: -Pulmonary consult -mechanically ventilated -keep SpO2 >90% -Montelukast HS -Prednisone daily -Influenza neg Code(s): J96.91 - RESPIRATORY FAILURE, UNSPECIFIED WITH HYPOXIA; J96.92 - RESPIRATORY FAILURE, UNSPECIFIED WITH HYPERCAPNIA (5) Nausea and vomiting Assessment/Plan: -CTAP shows somewhat atrophic R kidney, umbilical hernia containing non- obstructed small bowel loopsno gross evidence of acute pathology within abdomen or pelvis -no Zofran due to prolong QT -consult dietary to begin feeds -no further episodes of vomiting reported Code(s): R11.2 - NAUSEA WITH VOMITING, UNSPECIFIED (6) Chest pain Assessment/Plan: -EKG reviewed NSR -Cardiology on board -tachycardic at present will re-order EKG -troponin 0.03 -resolved Code(s): R07.9 - CHEST PAIN, UNSPECIFIED (7) Anxiety Assessment/Plan: -Psychiatry consult -Klonopin BID Code(s): F41.9 - ANXIETY DISORDER, UNSPECIFIED (8) Paranoia Assessment/Plan: -psychiatry consult Code(s): F22 - DELUSIONAL DISORDERS (9) HTN (hypertension) Assessment/Plan: -Metoprolol, Furosemide Code(s): I10 - ESSENTIAL (PRIMARY) HYPERTENSION (10) Diabetes mellitus Assessment/Plan: -BGM ACHS -Levemir BID -ISS -HgA1c Code(s): E11.9 - TYPE 2 DIABETES MELLITUS WITHOUT COMPLICATIONS (11) HLD (hyperlipidemia) Assessment/Plan: -Atorvastatin Code(s): E78.5 - HYPERLIPIDEMIA, UNSPECIFIED Assessment/Plan see problem list dvt ppx
[2019-05-16] MEDS: POLYETHYLENE GLYCOL 3350 119 GM BTL GT SCH (11:43)
[2019-05-16] MEDS: SODIUM CHLORIDE 0.9%/KCL 20 MEQ/1,000 ML INFUS.BAG IV SCH ×2 (11:47→23:38)
[2019-05-16] MEDS: clonazePAM 0.5 MG TABLET GT SCH ×2 (13:00→23:43)
--- NOTE | 2019-05-16 13:38 | PN ---
Progress Note (short form) - Note Progress Note: PULMONARY Vented, breathing better. No fevers recorded. at bedside, states that at the [place], pt was on trach collar during day, eating, on speaking valve. Vital Signs Period Temp Pulse Resp BP Sys/Vences Pulse Ox Last 24 Hr 97.9 F-99.8 F 82-112 14-24 143-156/65-87 99 Gen: vented, awake Heart: RRR Lung: decreased breath sounds at the bases Abd: soft, nontender Ext: no edema CBC, BMP 05/15/19 08:36 05/15/19 08:36 Active Medications Acetaminophen (Tylenol Oral Solution -) 650 mg PO Q6H PRN PRN Reason: PAIN LEVEL 1-5 Last Admin: 05/14/19 22:47 Dose: 650 mg Albuterol/Ipratropium (Duoneb -) 1 amp NEB RQ4H [facility] Last Admin: 05/16/19 12:13 Dose: 1 amp Ascorbic Acid (Vitamin C Oral Solution -) 500 mg GT DAILY [facility] Last Admin: 05/16/19 11:07 Dose: 500 mg Aspirin (Asa -) 81 mg GT DAILY [facility] Last Admin: 05/16/19 11:08 Dose: 81 mg Atorvastatin Calcium (Lipitor -) 80 mg GT HS [facility] Last Admin: 05/15/19 23:15 Dose: 80 mg Cholecalciferol (Vitamin D3 -) 1,000 unit GT DAILY [facility] Last Admin: 05/16/19 11:08 Dose: 1,000 unit Clonazepam (Klonopin -) 0.5 mg GT Q12H [facility] Last Admin: 05/15/19 23:13 Dose: 0.5 mg Docusate Sodium (Colace Liquid -) 50 mg GT TID [facility] Last Admin: 05/16/19 06:36 Dose: 50 mg Ferrous Sulfate (Feosol) 300 mg GT DAILY [facility] Last Admin: 05/16/19 11:08 Dose: 300 mg Furosemide (Lasix Oral Solution -) 40 mg GT DAILY [facility] Last Admin: 05/16/19 11:07 Dose: 40 mg Haloperidol (Haldol Injection (Fast Acting) -) 2 mg IM Q4H PRN PRN Reason: AGITATION Heparin Sodium (Porcine) (Heparin -) 5,000 unit SQ BID [facility] Last Admin: 05/16/19 11:08 Dose: 5,000 unit Cefepime HCl 1 gm/ Dextrose 100 mls @ 200 mls/hr IVPB Q8H-IV [facility]; Protocol Last Admin: 05/16/19 11:09 Dose: 200 mls/hr Potassium Chloride/Sodium Chloride (Ns+20 Meq Kcl -) 20 meq in 1,000 mls @ 100 mls/hr IV ASDIR [facility] Last Admin: 05/16/19 11:47 Dose: 100 mls/hr Insulin Aspart (Novolog Vial Sliding Scale -) 1 vial SQ ACHS [facility]; Protocol Last Admin: 05/16/19 12:11 Dose: 4 unit Insulin Detemir (Levemir Vial) 12 units SQ HS [facility] Last Admin: 05/15/19 23:19 Dose: 12 units Metoprolol Tartrate (Lopressor -) 25 mg GT BID [facility] Last Admin: 05/16/19 11:08 Dose: 25 mg Montelukast Sodium (Singulair -) 10 mg GT HS [facility] Last Admin: 05/15/19 23:13 Dose: 10 mg Multi-Ingredient Ointment (Zinc Oxide) 1 applic TP BID [facility] Last Admin: 05/15/19 23:15 Dose: 1 applic Polyethylene Glycol (Miralax (For Daily Use) -) 17 gm GT DAILY [facility] Last Admin: 05/16/19 11:43 Dose: 17 gm Potassium Chloride (Potassium Chloride Oral Liquid) 20 meq GT DAILY [facility] Last Admin: 05/16/19 11:07 Dose: 20 meq Prednisone (Deltasone -) 20 mg GT DAILY [facility] Last Admin: 05/16/19 11:08 Dose: 20 mg A/P Chronic Respiratory Failure UTI CAD Asthma HTN DM - continue antibiotics - inhaled bronchodilators - O2 to keep Spo2 >90% - on prednisone - singulair - enteral feeds - CPAP/PS during day, assist control at night - DVT/GI prophylaxis
[2019-05-16] MEDS: ZINC OXIDE 20% TOPICAL OINTMENT 30 GM TUBE TP SCH ×2 (16:11→22:28)
[2019-05-16] MEDS: ATORVASTATIN CA 80 MG TABLET (FP) GT SCH (22:18)
[2019-05-16] MEDS: MONTELUKAST NA 10 MG TABLET GT SCH (22:19)
[2019-05-16] MEDS: INSULIN (LEVEMIR) 100 UNITS/ML UNITS SQ SCH (22:21)
[2019-05-17] MEDS: ALBUTEROL SO4 2.5/IPRATROPIUM 0.5 INH SOL 3 ML VIAL.NEB. NEB SCH ×6 (00:30→21:38)
[2019-05-17] MEDS ORDERED: CEFEPIME HCL 1 GM VIAL (RESTRICTED TO ID) ONE ×3 (01:30→17:06)
[2019-05-17] MEDS ORDERED: DEXTROSE 5%-WATER 100 ML IVPB ONE ×3 (01:31→17:06)
[2019-05-17] MEDS: CEFEPIME 1 GM in DEXTROSE 5%-WATER 100 ML IVPB SCH ×3 (01:34→17:30)
[2019-05-17] MEDS: DOCUSATE NA 100 MG/10 ML UNIT-DOSE CUPS GT SCH ×3 (06:40→21:40)
[2019-05-17] MEDS: INSULIN SLIDING SCALE (NOVOLOG) 1 VIAL SQ SCH ×4 (06:40→21:44)
--- NOTE | 2019-05-17 08:27 | PN ---
Progress Note, Physician Chief Complaint: UTI Hypercalcemia Nausea/Vomiting History of Present Illness: Previous notes and events reviewed awake and alert mechanically ventilated denies chest pain, tachycardic complain of dizziness~EKG ordered no leukocytosis afebrile - Current Medication List Current Medications: Active Medications Acetaminophen (Tylenol Oral Solution -) 650 mg PO Q6H PRN PRN Reason: PAIN LEVEL 1-5 Last Admin: 05/14/19 22:47 Dose: 650 mg Albuterol/Ipratropium (Duoneb -) 1 amp NEB RQ4H [facility] Last Admin: 05/17/19 08:09 Dose: 1 amp Ascorbic Acid (Vitamin C Oral Solution -) 500 mg GT DAILY [facility] Last Admin: 05/16/19 11:07 Dose: 500 mg Aspirin (Asa -) 81 mg GT DAILY [facility] Last Admin: 05/16/19 11:08 Dose: 81 mg Atorvastatin Calcium (Lipitor -) 80 mg GT HS [facility] Last Admin: 05/16/19 22:18 Dose: 80 mg Cholecalciferol (Vitamin D3 -) 1,000 unit GT DAILY [facility] Last Admin: 05/16/19 11:08 Dose: 1,000 unit Clonazepam (Klonopin -) 0.5 mg GT Q12H [facility] Last Admin: 05/16/19 23:43 Dose: 0.5 mg Docusate Sodium (Colace Liquid -) 50 mg GT TID [facility] Last Admin: 05/17/19 06:40 Dose: 50 mg Ferrous Sulfate (Feosol) 300 mg GT DAILY [facility] Last Admin: 05/16/19 11:08 Dose: 300 mg Furosemide (Lasix Oral Solution -) 40 mg GT DAILY [facility] Last Admin: 05/16/19 11:07 Dose: 40 mg Haloperidol (Haldol Injection (Fast Acting) -) 2 mg IM Q4H PRN PRN Reason: AGITATION Heparin Sodium (Porcine) (Heparin -) 5,000 unit SQ BID [facility] Last Admin: 05/16/19 22:27 Dose: 5,000 unit Cefepime HCl 1 gm/ Dextrose 100 mls @ 200 mls/hr IVPB Q8H-IV [facility]; Protocol Last Admin: 05/17/19 01:34 Dose: 200 mls/hr Potassium Chloride/Sodium Chloride (Ns+20 Meq Kcl -) 20 meq in 1,000 mls @ 100 mls/hr IV ASDIR [facility] Last Admin: 05/16/19 23:38 Dose: 100 mls/hr Insulin Aspart (Novolog Vial Sliding Scale -) 1 vial SQ ACHS [facility]; Protocol Last Admin: 05/17/19 06:40 Dose: 4 unit Insulin Detemir (Levemir Vial) 12 units SQ HS [facility] Last Admin: 05/16/19 22:21 Dose: 12 units Metoprolol Tartrate (Lopressor -) 25 mg GT BID [facility] Last Admin: 05/16/19 22:19 Dose: 25 mg Montelukast Sodium (Singulair -) 10 mg GT HS [facility] Last Admin: 05/16/19 22:19 Dose: 10 mg Multi-Ingredient Ointment (Zinc Oxide) 1 applic TP BID [facility] Last Admin: 05/16/19 22:28 Dose: 1 applic Polyethylene Glycol (Miralax (For Daily Use) -) 17 gm GT DAILY [facility] Last Admin: 05/16/19 11:43 Dose: 17 gm Potassium Chloride (Potassium Chloride Oral Liquid) 20 meq GT DAILY [facility] Last Admin: 05/16/19 11:07 Dose: 20 meq Prednisone (Deltasone -) 20 mg GT DAILY [facility] Last Admin: 05/16/19 11:08 Dose: 20 mg - Objective Vital Signs: Vital Signs Temperature 99.5 F 05/17/19 06:00 Pulse Rate 93 H 05/17/19 06:00 Respiratory Rate 29 H 05/17/19 08:07 Blood Pressure 152/72 05/17/19 06:00 O2 Sat by Pulse Oximetry (%) 98 05/16/19 21:00 Constitutional: Yes: No Distress, Calm Eyes: Yes: Conjunctiva Clear HENT: Yes: Atraumatic Cardiovascular: Yes: Regular Rate and Rhythm Respiratory: Yes: Regular, Diminished, Mechanically Ventilated Gastrointestinal: Yes: Normal Bowel Sounds, Soft, Tenderness (luq), Other (Gtube ) Genitourinary: Yes: Incontinence Musculoskeletal: Yes: Muscle Weakness Extremities: Yes: WNL Edema: No Neurological: Yes: Alert, Pre-Existing Deficit Psychiatric: Yes: Alert Labs: CBC, BMP 05/15/19 08:36 05/15/19 08:36 INR, PTT INR 1.00 (0.83-1.09) 05/13/19 18:45 Microbiology 05/15/19 02:20 Blood - Peripheral Venous Blood Culture - Preliminary NO GROWTH OBTAINED AFTER 48 HOURS, INCUBATION TO CONTINUE FOR 3 DAYS. 05/15/19 02:20 Blood - Peripheral Venous Blood Culture - Preliminary NO GROWTH OBTAINED AFTER 48 HOURS, INCUBATION TO CONTINUE FOR 3 DAYS. 05/13/19 22:40 Urine - Urine Clean Catch Urine Culture - Final Escherichia Coli Esbl Radiation Therapist Problem List - Problems (1) UTI (urinary tract infection) Assessment/Plan: -ID on board -afebrile -no leukocytosis -Cefepime -UC positive E.coli/ESBL -UA shows 3+ leuks, 3+ blood, 3+ protein, WBC 684.5 Code(s): N39.0 - URINARY TRACT INFECTION, SITE NOT SPECIFIED (2) Hypercalcemia Assessment/Plan: -Renal on board -resolved -12.8~12.7~10.6~9.3 -PTH 10 -M-spike not observed -pending serum protein electrophoresis Code(s): E83.52 - HYPERCALCEMIA (3) CKD (chronic kidney disease) Assessment/Plan: -Renal on board -BUN/Cr 18.4/1.0 -monitor renal function daily -Renal US shows both kidneys are small and appear morphologically unremarkable, no gross renal stones or hydronephrosis, fatty infiltration of the liver vs hepatocellular disease Code(s): N18.9 - CHRONIC KIDNEY DISEASE, UNSPECIFIED (4) Respiratory failure with hypoxia and hypercapnia Assessment/Plan: -Pulmonary on board -mechanically ventilated -keep SpO2 >90% -Montelukast HS -Prednisone daily -Influenza neg -CXR shows prominent vascular structures at the bases with some questionable atelectasis at the left base Code(s): J96.91 - RESPIRATORY FAILURE, UNSPECIFIED WITH HYPOXIA; J96.92 - RESPIRATORY FAILURE, UNSPECIFIED WITH HYPERCAPNIA (5) Nausea and vomiting Assessment/Plan: -CTAP shows somewhat atrophic R kidney, umbilical hernia containing non- obstructed small bowel loopsno gross evidence of acute pathology within abdomen or pelvis -no Zofran due to prolong QT -complain of nausea yesterday and feeds decreased to 40cc/hr and nausea subsided -Abd US ordered Code(s): R11.2 - NAUSEA WITH VOMITING, UNSPECIFIED (6) Chest pain Assessment/Plan: -EKG reviewed NSR -Cardiology on board -tachycardic at present will re-order EKG -troponin 0.03 -resolved Code(s): R07.9 - CHEST PAIN, UNSPECIFIED (7) Anxiety Assessment/Plan: -Psychiatry consult -Klonopin BID Code(s): F41.9 - ANXIETY DISORDER, UNSPECIFIED (8) Paranoia Assessment/Plan: -psychiatry consult Code(s): F22 - DELUSIONAL DISORDERS (9) HTN (hypertension) Assessment/Plan: -Metoprolol, Furosemide Code(s): I10 - ESSENTIAL (PRIMARY) HYPERTENSION (10) Diabetes mellitus Assessment/Plan: -BGM ACHS -Levemir BID -ISS -HgA1c 9.4% Code(s): E11.9 - TYPE 2 DIABETES MELLITUS WITHOUT COMPLICATIONS (11) HLD (hyperlipidemia) Assessment/Plan: -Atorvastatin Code(s): E78.5 - HYPERLIPIDEMIA, UNSPECIFIED (12) Dizziness Assessment/Plan: -EKG ordered -monitor BP Code(s): R42 - DIZZINESS AND GIDDINESS Assessment/Plan see problem list dvt ppx
[2019-05-17 08:34] LABS: HEMATOCRIT 27.8 % (32.4-45.2); HEMOGLOBIN 9.2 GM/dL (10.7-15.3); MCH 25.6 pg (25.7-33.7); MCHC 33.2 g/dl (32.0-36.0); MEAN PLT VOLUME 8.8 fl (7.5-11.1); PLATELET COUNT 308 K/MM3 (134-434); RBC 3.61 M/mm3 (3.60-5.2); RDW 16.3 % (11.6-15.6); WHITE BLOOD COUNT 8.1 K/mm3 (4.0-10.0)
[2019-05-17 09:14] LABS: BILIRUBIN,TOTAL 0.5 mg/dL (0.2-1); BLOOD UREA NITROGEN 18.4 mg/dL (7-18); CALCIUM 9.3 mg/dL (8.5-10.1); POTASSIUM 3.3 mmol/L (3.5-5.1)
[2019-05-17] MEDS ORDERED: PT OWN MED DRAWER 7, Y5N ONE (09:37)
[2019-05-17] MEDS: FUROSEMIDE 40 MG/5 ML UNIT-DOSE CUP GT SCH (09:56)
[2019-05-17] MEDS: CHOLECALCIFEROL (VIT D3) 1,000 UNIT (25 MCG) TABLET GT SCH (09:56)
[2019-05-17] MEDS: METOPROLOL TARTRATE 25 MG TABLET (FP) GT SCH ×2 (09:56→21:41)
[2019-05-17] MEDS: ASPIRIN 81 MG CHEWABLE TABLETS GT SCH (09:56)
[2019-05-17] MEDS: ASCORBIC ACID 500 MG/5 ML UNIT DOSE CUP GT SCH (09:56)
[2019-05-17] MEDS: POTASSIUM CHLORIDE ORAL LIQUID 20 MEQ/15 ML GT SCH (09:56)
[2019-05-17] MEDS: predniSONE 20 MG TABLET (UD) GT SCH (09:56)
[2019-05-17] MEDS: HEPARIN NA (PORCINE) 5,000 UNITS/ML 1ML VIAL SQ SCH ×2 (10:02→21:41)
[2019-05-17] MEDS: POLYETHYLENE GLYCOL 3350 119 GM BTL GT SCH (10:02)
[2019-05-17] MEDS: FERROUS SO4 300 MG/5 ML ORAL SOLN UNIT DOSE CUPS GT SCH (10:02)
[2019-05-17] MEDS: ZINC OXIDE 20% TOPICAL OINTMENT 30 GM TUBE TP SCH ×2 (10:04→21:45)
[2019-05-17] MEDS: clonazePAM 0.5 MG TABLET GT SCH (12:03)
[2019-05-17] MEDS: SODIUM CHLORIDE 0.9%/KCL 20 MEQ/1,000 ML INFUS.BAG IV SCH (12:03)
--- NOTE | 2019-05-17 12:09 | PN ---
Progress Note (short form) - Note Progress Note: Renal follow up for hypercalcemia Coverage for Dr. Lanza Seen and examined at the bedside on vent via trach awake and alert has large loose BM no chest pain or sob no fever or chills Vital Signs Temperature 99.5 F 05/17/19 06:00 Pulse Rate 93 H 05/17/19 06:00 Respiratory Rate 29 H 05/17/19 08:07 Blood Pressure 152/72 05/17/19 06:00 O2 Sat by Pulse Oximetry (%) 98 05/16/19 21:00 Intake & Output 05/14/19 05/15/19 05/16/19 05/17/19 23:59 23:59 23:59 23:59 Intake Total 728 270 4838 0 Balance 020 797 1283 0 Weight 84.368 kg 84.368 kg NAD awake and alert on vent via trach RRR Dec BS at lung bases soft NT/ND trace edema in LE CBC, BMP 05/17/19 07:40 05/17/19 07:40 Current Medications Acetaminophen (Tylenol Oral Solution -) 650 mg PO Q6H PRN PRN Reason: PAIN LEVEL 1-5 Last Admin: 05/14/19 22:47 Dose: 650 mg Albuterol/Ipratropium (Duoneb -) 1 amp NEB RQ4H [facility] Last Admin: 05/17/19 08:09 Dose: 1 amp Ascorbic Acid (Vitamin C Oral Solution -) 500 mg GT DAILY [facility] Last Admin: 05/17/19 09:56 Dose: 500 mg Aspirin (Asa -) 81 mg GT DAILY [facility] Last Admin: 05/17/19 09:56 Dose: 81 mg Atorvastatin Calcium (Lipitor -) 80 mg GT HS [facility] Last Admin: 05/16/19 22:18 Dose: 80 mg Cholecalciferol (Vitamin D3 -) 1,000 unit GT DAILY [facility] Last Admin: 05/17/19 09:56 Dose: 1,000 unit Clonazepam (Klonopin -) 0.5 mg GT Q12H [facility] Last Admin: 05/17/19 12:03 Dose: 0.5 mg Docusate Sodium (Colace Liquid -) 50 mg GT TID [facility] Last Admin: 05/17/19 06:40 Dose: 50 mg Ferrous Sulfate (Feosol) 300 mg GT DAILY [facility] Last Admin: 05/17/19 10:02 Dose: 300 mg Furosemide (Lasix Oral Solution -) 40 mg GT DAILY [facility] Last Admin: 05/17/19 09:56 Dose: 40 mg Haloperidol (Haldol Injection (Fast Acting) -) 2 mg IM Q4H PRN PRN Reason: AGITATION Heparin Sodium (Porcine) (Heparin -) 5,000 unit SQ BID [facility] Last Admin: 05/17/19 10:02 Dose: 5,000 unit Cefepime HCl 1 gm/ Dextrose 100 mls @ 200 mls/hr IVPB Q8H-IV [facility]; Protocol Last Admin: 05/17/19 09:55 Dose: 200 mls/hr Insulin Aspart (Novolog Vial Sliding Scale -) 1 vial SQ ACHS [facility]; Protocol Last Admin: 05/17/19 12:02 Dose: 4 unit Insulin Detemir (Levemir Vial) 12 units SQ HS [facility] Last Admin: 05/16/19 22:21 Dose: 12 units Metoprolol Tartrate (Lopressor -) 25 mg GT BID [facility] Last Admin: 05/17/19 09:56 Dose: 25 mg Montelukast Sodium (Singulair -) 10 mg GT HS [facility] Last Admin: 05/16/19 22:19 Dose: 10 mg Multi-Ingredient Ointment (Zinc Oxide) 1 applic TP BID [facility] Last Admin: 05/17/19 10:04 Dose: 1 applic Polyethylene Glycol (Miralax (For Daily Use) -) 17 gm GT DAILY [facility] Last Admin: 05/17/19 10:02 Dose: 17 gm Potassium Chloride (Potassium Chloride Oral Liquid) 20 meq GT DAILY [facility] Last Admin: 05/17/19 09:56 Dose: 20 meq Potassium Chloride (Potassium Chloride Oral Liquid) 40 meq GT ONCE ONE Stop: 05/17/19 12:09 Prednisone (Deltasone -) 20 mg GT DAILY [facility] Last Admin: 05/17/19 09:56 Dose: 20 mg Impression 1. hypercalcemia 2. DM 3. HTN 4. asthma 5. chronic resp failure 6. azotemia Plan Corrected Ca 10.4 now can discontinue IVF PTH releated peptide pending Continue vent support f/u additional imaging studies trend Ca daily Thank you Hussein Odell DO
[2019-05-17] MEDS ORDERED: POTASSIUM CHLORIDE ORAL LIQUID 20 MEQ/15 ML GT ONE (12:15)
--- NOTE | 2019-05-17 13:20 | PN ---
Progress Note (short form) - Note Progress Note: PULMONARY Vented, breathing better. No fevers recorded. At the [place], pt was on trach collar during day, eating, on speaking valve. Vital Signs Period Temp Pulse Resp BP Sys/Vences Pulse Ox Last 24 Hr 97.8 F-99.8 F 90-100 15-29 151-161/61-90 98 Gen: vented, awake Heart: RRR Lung: decreased breath sounds at the bases Abd: soft, nontender Ext: no edema CBC, BMP 05/17/19 07:40 05/17/19 07:40 Active Medications Acetaminophen (Tylenol Oral Solution -) 650 mg PO Q6H PRN PRN Reason: PAIN LEVEL 1-5 Last Admin: 05/14/19 22:47 Dose: 650 mg Albuterol/Ipratropium (Duoneb -) 1 amp NEB RQ4H [facility] Last Admin: 05/17/19 12:13 Dose: 1 amp Ascorbic Acid (Vitamin C Oral Solution -) 500 mg GT DAILY [facility] Last Admin: 05/17/19 09:56 Dose: 500 mg Aspirin (Asa -) 81 mg GT DAILY [facility] Last Admin: 05/17/19 09:56 Dose: 81 mg Atorvastatin Calcium (Lipitor -) 80 mg GT HS [facility] Last Admin: 05/16/19 22:18 Dose: 80 mg Cholecalciferol (Vitamin D3 -) 1,000 unit GT DAILY [facility] Last Admin: 05/17/19 09:56 Dose: 1,000 unit Clonazepam (Klonopin -) 0.5 mg GT Q12H [facility] Last Admin: 05/17/19 12:03 Dose: 0.5 mg Docusate Sodium (Colace Liquid -) 50 mg GT TID [facility] Last Admin: 05/17/19 13:10 Dose: Not Given Ferrous Sulfate (Feosol) 300 mg GT DAILY [facility] Last Admin: 05/17/19 10:02 Dose: 300 mg Furosemide (Lasix Oral Solution -) 40 mg GT DAILY [facility] Last Admin: 05/17/19 09:56 Dose: 40 mg Haloperidol (Haldol Injection (Fast Acting) -) 2 mg IM Q4H PRN PRN Reason: AGITATION Heparin Sodium (Porcine) (Heparin -) 5,000 unit SQ BID [facility] Last Admin: 05/17/19 10:02 Dose: 5,000 unit Cefepime HCl 1 gm/ Dextrose 100 mls @ 200 mls/hr IVPB Q8H-IV [facility]; Protocol Last Admin: 05/17/19 09:55 Dose: 200 mls/hr Insulin Aspart (Novolog Vial Sliding Scale -) 1 vial SQ ACHS [facility]; Protocol Last Admin: 05/17/19 12:02 Dose: 4 unit Insulin Detemir (Levemir Vial) 12 units SQ HS [facility] Last Admin: 05/16/19 22:21 Dose: 12 units Metoprolol Tartrate (Lopressor -) 25 mg GT BID [facility] Last Admin: 05/17/19 09:56 Dose: 25 mg Montelukast Sodium (Singulair -) 10 mg GT HS [facility] Last Admin: 05/16/19 22:19 Dose: 10 mg Multi-Ingredient Ointment (Zinc Oxide) 1 applic TP BID [facility] Last Admin: 05/17/19 10:04 Dose: 1 applic Polyethylene Glycol (Miralax (For Daily Use) -) 17 gm GT DAILY [facility] Last Admin: 05/17/19 10:02 Dose: 17 gm Potassium Chloride (Potassium Chloride Oral Liquid) 20 meq GT DAILY [facility] Last Admin: 05/17/19 09:56 Dose: 20 meq Prednisone (Deltasone -) 20 mg GT DAILY [facility] Last Admin: 05/17/19 09:56 Dose: 20 mg A/P Chronic Respiratory Failure UTI CAD Asthma HTN DM - continue antibiotics - inhaled bronchodilators - O2 to keep Spo2 >90% - on prednisone - singulair - enteral feeds - CPAP/PS during day, assist control at night with goal for trach collar during day - DVT/GI prophylaxis
--- NOTE | 2019-05-17 13:48 | EKG ---
Test Reason : Blood Pressure : / mmHG Vent. Rate : 092 BPM Atrial Rate : 092 BPM P-R Int : 140 ms QRS Dur : 114 ms QT Int : 394 ms P-R-T Axes : 041 018 009 degrees QTc Int : 487 ms NORMAL SINUS RHYTHM INCOMPLETE RIGHT BUNDLE BRANCH BLOCK POSSIBLE POSTERIOR INFARCT BORDERLINE ECG Confirmed by MD ADILENE, AMENA ([id number]) on 05/17/2019 1:47:49 PM Referred By: Meenakshi STEVENS Confirmed By:AMENA HEAD MD
[2019-05-17] MEDS ORDERED: PNEUMOC 13-VAL CONJ-DIP CRM/PF 0.5 ML DISP.SYRIN IM ONE (16:30)
[2019-05-17] MEDS: MONTELUKAST NA 10 MG TABLET GT SCH (21:41)
[2019-05-17] MEDS: ATORVASTATIN CA 80 MG TABLET (FP) GT SCH (21:41)
[2019-05-17] MEDS: INSULIN (LEVEMIR) 100 UNITS/ML UNITS SQ SCH (21:43)
[2019-05-18] MEDS: ALBUTEROL SO4 2.5/IPRATROPIUM 0.5 INH SOL 3 ML VIAL.NEB. NEB SCH ×6 (00:26→20:50)
[2019-05-18] MEDS: clonazePAM 0.5 MG TABLET GT SCH ×3 (00:40→23:49)
[2019-05-18] MEDS ORDERED: CEFEPIME HCL 1 GM VIAL (RESTRICTED TO ID) ONE ×2 (01:57→10:45)
[2019-05-18] MEDS ORDERED: DEXTROSE 5%-WATER 100 ML IVPB ONE ×2 (01:57→10:45)
[2019-05-18] MEDS: CEFEPIME 1 GM in DEXTROSE 5%-WATER 100 ML IVPB SCH ×2 (02:02→11:05)
[2019-05-18] MEDS: DOCUSATE NA 100 MG/10 ML UNIT-DOSE CUPS GT SCH ×3 (07:02→22:36)
[2019-05-18] MEDS: INSULIN SLIDING SCALE (NOVOLOG) 1 VIAL SQ SCH ×4 (07:02→22:40)
[2019-05-18] MEDS ORDERED: INSULIN (NOVOLOG) ASPART 100 UNITS/ML 10ML VIAL ONE (11:01)
--- NOTE | 2019-05-18 11:01 | PN ---
Progress Note (short form) - Note Progress Note: Awake and alert. Reports breathing is better. No fevers recorded. Intake & Output 05/15/19 05/16/19 05/17/19 05/18/19 23:59 23:59 23:59 23:59 Intake Total 850 2380 0 0 Output Total 1700 Balance 850 2380 -1700 0 Weight 186 lb Last Vital Signs Temp Pulse Resp BP Pulse Ox 98.3 F 90 21 H 176/84 H 99 05/18/19 10:00 05/18/19 10:00 05/18/19 10:00 05/18/19 10:00 05/17/19 21:00 Active Medications Acetaminophen (Tylenol Oral Solution -) 650 mg PO Q6H PRN PRN Reason: PAIN LEVEL 1-5 Last Admin: 05/14/19 22:47 Dose: 650 mg Albuterol/Ipratropium (Duoneb -) 1 amp NEB RQ4H [facility] Last Admin: 05/18/19 07:20 Dose: 1 amp Ascorbic Acid (Vitamin C Oral Solution -) 500 mg GT DAILY [facility] Last Admin: 05/17/19 09:56 Dose: 500 mg Aspirin (Asa -) 81 mg GT DAILY [facility] Last Admin: 05/17/19 09:56 Dose: 81 mg Atorvastatin Calcium (Lipitor -) 80 mg GT HS [facility] Last Admin: 05/17/19 21:41 Dose: 80 mg Cholecalciferol (Vitamin D3 -) 1,000 unit GT DAILY [facility] Last Admin: 05/17/19 09:56 Dose: 1,000 unit Clonazepam (Klonopin -) 0.5 mg GT Q12H [facility] Last Admin: 05/18/19 00:40 Dose: 0.5 mg Docusate Sodium (Colace Liquid -) 50 mg GT TID [facility] Last Admin: 05/18/19 07:02 Dose: Not Given Ferrous Sulfate (Feosol) 300 mg GT DAILY [facility] Last Admin: 05/17/19 10:02 Dose: 300 mg Furosemide (Lasix Oral Solution -) 40 mg GT DAILY [facility] Last Admin: 05/17/19 09:56 Dose: 40 mg Haloperidol (Haldol Injection (Fast Acting) -) 2 mg IM Q4H PRN PRN Reason: AGITATION Heparin Sodium (Porcine) (Heparin -) 5,000 unit SQ BID [facility] Last Admin: 05/17/19 21:41 Dose: 5,000 unit Cefepime HCl 1 gm/ Dextrose 100 mls @ 200 mls/hr IVPB Q8H-IV [facility]; Protocol Last Admin: 05/18/19 02:02 Dose: 200 mls/hr Insulin Aspart (Novolog Vial Sliding Scale -) 1 vial SQ ACHS [facility]; Protocol Last Admin: 05/18/19 07:02 Dose: 2 unit Insulin Detemir (Levemir Vial) 12 units SQ HS [facility] Last Admin: 05/17/19 21:43 Dose: 12 units Metoprolol Tartrate (Lopressor -) 25 mg GT BID [facility] Last Admin: 05/17/19 21:41 Dose: 25 mg Montelukast Sodium (Singulair -) 10 mg GT HS [facility] Last Admin: 05/17/19 21:41 Dose: 10 mg Multi-Ingredient Ointment (Zinc Oxide) 1 applic TP BID [facility] Last Admin: 05/17/19 21:45 Dose: 1 applic Polyethylene Glycol (Miralax (For Daily Use) -) 17 gm GT DAILY [facility] Last Admin: 05/17/19 10:02 Dose: 17 gm Potassium Chloride (Potassium Chloride Oral Liquid) 20 meq GT DAILY [facility] Last Admin: 05/17/19 09:56 Dose: 20 meq Prednisone (Deltasone -) 20 mg GT DAILY [facility] Last Admin: 05/17/19 09:56 Dose: 20 mg Gen: vented, awake Heart: RRR Lung: decreased breath sounds at the bases Abd: soft, nontender Ext: no edema Laboratory Results - last 24 hr 05/17/19 05/17/19 05/17/19 11:54 17:26 21:39 POC Glucometer 294 384 323 05/18/19 06:59 POC Glucometer 219 A/P Chronic Respiratory Failure UTI CAD Asthma HTN DM - continue antibiotics - inhaled bronchodilators - O2 to keep Spo2 >90% - on prednisone - singulair - enteral feeds - CPAP/PS during day, assist control at night with goal for trach collar during day - DVT/GI prophylaxis Dr Navarro
[2019-05-18] MEDS: POLYETHYLENE GLYCOL 3350 119 GM BTL GT SCH (11:03)
[2019-05-18] MEDS: ACETAMINOPHEN 650 MG/20.3 ML ORAL SOLUTION (CUPS) PO PRN ×2 (11:04→23:48)
[2019-05-18] MEDS: METOPROLOL TARTRATE 25 MG TABLET (FP) GT SCH ×2 (11:05→22:36)
[2019-05-18] MEDS: predniSONE 20 MG TABLET (UD) GT SCH (11:05)
[2019-05-18] MEDS: POTASSIUM CHLORIDE ORAL LIQUID 20 MEQ/15 ML GT SCH (11:05)
[2019-05-18] MEDS: FERROUS SO4 300 MG/5 ML ORAL SOLN UNIT DOSE CUPS GT SCH (11:05)
[2019-05-18] MEDS: ASPIRIN 81 MG CHEWABLE TABLETS GT SCH (11:05)
[2019-05-18] MEDS: HEPARIN NA (PORCINE) 5,000 UNITS/ML 1ML VIAL SQ SCH ×2 (11:06→22:37)
[2019-05-18] MEDS: CHOLECALCIFEROL (VIT D3) 1,000 UNIT (25 MCG) TABLET GT SCH (11:06)
[2019-05-18] MEDS: FUROSEMIDE 40 MG/5 ML UNIT-DOSE CUP GT SCH (11:09)
--- NOTE | 2019-05-18 11:09 | PN ---
Progress Note, Physician Chief Complaint: UTI Hypercalcemia Nausea/Vomiting History of Present Illness: NAD On trach collar right now-tolerating well - Current Medication List Current Medications: Active Medications Acetaminophen (Tylenol Oral Solution -) 650 mg PO Q6H PRN PRN Reason: PAIN LEVEL 1-5 Last Admin: 05/14/19 22:47 Dose: 650 mg Albuterol/Ipratropium (Duoneb -) 1 amp NEB RQ4H [facility] Last Admin: 05/18/19 07:20 Dose: 1 amp Ascorbic Acid (Vitamin C Oral Solution -) 500 mg GT DAILY [facility] Last Admin: 05/17/19 09:56 Dose: 500 mg Aspirin (Asa -) 81 mg GT DAILY [facility] Last Admin: 05/17/19 09:56 Dose: 81 mg Atorvastatin Calcium (Lipitor -) 80 mg GT HS [facility] Last Admin: 05/17/19 21:41 Dose: 80 mg Cholecalciferol (Vitamin D3 -) 1,000 unit GT DAILY [facility] Last Admin: 05/17/19 09:56 Dose: 1,000 unit Clonazepam (Klonopin -) 0.5 mg GT Q12H [facility] Last Admin: 05/18/19 00:40 Dose: 0.5 mg Docusate Sodium (Colace Liquid -) 50 mg GT TID [facility] Last Admin: 05/18/19 07:02 Dose: Not Given Ferrous Sulfate (Feosol) 300 mg GT DAILY [facility] Last Admin: 05/17/19 10:02 Dose: 300 mg Furosemide (Lasix Oral Solution -) 40 mg GT DAILY [facility] Last Admin: 05/17/19 09:56 Dose: 40 mg Haloperidol (Haldol Injection (Fast Acting) -) 2 mg IM Q4H PRN PRN Reason: AGITATION Heparin Sodium (Porcine) (Heparin -) 5,000 unit SQ BID [facility] Last Admin: 05/17/19 21:41 Dose: 5,000 unit Cefepime HCl 1 gm/ Dextrose 100 mls @ 200 mls/hr IVPB Q8H-IV [facility]; Protocol Last Admin: 05/18/19 02:02 Dose: 200 mls/hr Insulin Aspart (Novolog Vial Sliding Scale -) 1 vial SQ ACHS [facility]; Protocol Last Admin: 05/18/19 07:02 Dose: 2 unit Insulin Detemir (Levemir Vial) 12 units SQ [facility] Last Admin: 05/17/19 21:43 Dose: 12 units Metoprolol Tartrate (Lopressor -) 25 mg GT BID [facility] Last Admin: 05/17/19 21:41 Dose: 25 mg Montelukast Sodium (Singulair -) 10 mg GT HS [facility] Last Admin: 05/17/19 21:41 Dose: 10 mg Multi-Ingredient Ointment (Zinc Oxide) 1 applic TP BID [facility] Last Admin: 05/17/19 21:45 Dose: 1 applic Polyethylene Glycol (Miralax (For Daily Use) -) 17 gm GT DAILY [facility] Last Admin: 05/18/19 11:03 Dose: Not Given Potassium Chloride (Potassium Chloride Oral Liquid) 20 meq GT DAILY [facility] Last Admin: 05/17/19 09:56 Dose: 20 meq Prednisone (Deltasone -) 20 mg GT DAILY [facility] Last Admin: 05/17/19 09:56 Dose: 20 mg - Objective Vital Signs: Vital Signs Temperature 98.3 F 05/18/19 10:00 Pulse Rate 90 05/18/19 10:00 Respiratory Rate 21 H 05/18/19 10:00 Blood Pressure 176/84 H 05/18/19 10:00 O2 Sat by Pulse Oximetry (%) 99 05/17/19 21:00 Constitutional: Yes: Well Nourished, No Distress, Calm Cardiovascular: Yes: Regular Rate and Rhythm Respiratory: Yes: Mechanically Ventilated, Rhonchi (diffuse) Gastrointestinal: Yes: Normal Bowel Sounds, Soft Genitourinary: Yes: Incontinence Musculoskeletal: Yes: Muscle Weakness Extremities: Yes: WNL Edema: No Peripheral Pulses WNL: Yes Neurological: Yes: Alert, Pre-Existing Deficit Psychiatric: Yes: Alert Labs: CBC, BMP 05/17/19 07:40 05/17/19 07:40 INR, PTT INR 1.00 (0.83-1.09) 05/13/19 18:45 Assessment/Plan (1) UTI (urinary tract infection) Assessment/Plan: -ID on board -afebrile -no leukocytosis -Cefepime -UC positive E.coli/ESBL -Contact isolation Code(s): N39.0 - URINARY TRACT INFECTION, SITE NOT SPECIFIED (2) Hypercalcemia Assessment/Plan: -Resolved -Renal on board -M-spike not observed -pending serum protein electrophoresis -PTH releated peptide pending Code(s): E83.52 - HYPERCALCEMIA (3) CKD (chronic kidney disease) Assessment/Plan: -Renal on board -monitor renal function daily -Renal US shows both kidneys are small and appear morphologically unremarkable, no gross renal stones or hydronephrosis, fatty infiltration of the liver vs hepatocellular disease Code(s): N18.9 - CHRONIC KIDNEY DISEASE, UNSPECIFIED (4) Respiratory failure with hypoxia and hypercapnia Assessment/Plan: -Pulmonary on board -mechanically ventilated -keep SpO2 >90% -Montelukast HS -Prednisone daily -Influenza neg -CXR shows prominent vascular structures at the bases with some questionable atelectasis at the left base Code(s): J96.91 - RESPIRATORY FAILURE, UNSPECIFIED WITH HYPOXIA; J96.92 - RESPIRATORY FAILURE, UNSPECIFIED WITH HYPERCAPNIA (5) Nausea and vomiting Assessment/Plan: -CTAP shows somewhat atrophic R kidney, umbilical hernia containing non- obstructed small bowel loopsno gross evidence of acute pathology within abdomen or pelvis -no Zofran due to prolong QT -complain of nausea yesterday and feeds stopped yesterday -Feeds restarted at decreased rate at 40cc/hr-tolerating well -Abd US unremarkable -Reglan 5 mg TID Code(s): R11.2 - NAUSEA WITH VOMITING, UNSPECIFIED (6) Chest pain Assessment/Plan: -EKG reviewed NSR -Cardiology on board -tachycardic at present will re-order EKG -resolved Code(s): R07.9 - CHEST PAIN, UNSPECIFIED (7) Anxiety Assessment/Plan: -Psychiatry consult -Klonopin BID -Haldol PRN by psychiatry Code(s): F41.9 - ANXIETY DISORDER, UNSPECIFIED (8) Paranoia Assessment/Plan: -psychiatry consult appreciated Code(s): F22 - DELUSIONAL DISORDERS (9) HTN (hypertension) Assessment/Plan: -Metoprolol, Furosemide Code(s): I10 - ESSENTIAL (PRIMARY) HYPERTENSION (10) Diabetes mellitus Assessment/Plan: -BGM ACHS -Levemir BID-increase to 16 U BID -ISS -HgA1c 9.4% Code(s): E11.9 - TYPE 2 DIABETES MELLITUS WITHOUT COMPLICATIONS (11) HLD (hyperlipidemia) Assessment/Plan: -Atorvastatin Code(s): E78.5 - HYPERLIPIDEMIA, UNSPECIFIED (12) Dizziness Assessment/Plan: -EKG-no changes -monitor BP Code(s): R42 - DIZZINESS AND GIDDINESS Assessment/Plan see problem list dvt ppx
[2019-05-18] MEDS: ASCORBIC ACID 500 MG/5 ML UNIT DOSE CUP GT SCH (11:10)
[2019-05-18] MEDS: ZINC OXIDE 20% TOPICAL OINTMENT 30 GM TUBE TP SCH ×2 (11:10→22:43)
[2019-05-18] MEDS ORDERED: INSULIN (LEVEMIR) 100 UNITS/ML UNITS SQ SCH (11:14)
[2019-05-18] MEDS ORDERED: PANTOPRAZOLE SOD 40 MG SUSPENSION PACKET PO SCH (11:15)
[2019-05-18 11:20] LABS: HEMATOCRIT 29.8 % (32.4-45.2); HEMOGLOBIN 9.6 GM/dL (10.7-15.3); MCH 25.1 pg (25.7-33.7); MCHC 32.1 g/dl (32.0-36.0); MEAN PLT VOLUME 8.9 fl (7.5-11.1); PLATELET COUNT 341 K/MM3 (134-434); RBC 3.81 M/mm3 (3.60-5.2); RDW 16.6 % (11.6-15.6); WHITE BLOOD COUNT 11.7 K/mm3 (4.0-10.0)
[2019-05-18 11:46] LABS: ALBUMIN 3.3 g/dl (3.4-5.0); BILIRUBIN,TOTAL 0.4 mg/dL (0.2-1); CALCIUM 9.7 mg/dL (8.5-10.1); CREATININE 0.9 mg/dL (0.55-1.3); TOT PROT 7.2 g/dl (6.4-8.2)
[2019-05-18] MEDS: FAMOTIDINE 40 MG/5 ML ORAL SUSPENSION PO SCH ×2 (12:26→22:39)
[2019-05-18] MEDS: METOCLOPRAMIDE HCL 5 MG/5 ML UNIT DOSE CUP GT SCH ×2 (12:29→17:59)
--- NOTE | 2019-05-18 15:23 | CONSULT ---
Admitting History and Physical - Primary Care Physician PCP: Obed Fletcher - Admission History of Present Illness: Per EMR- HISTORY OF PRESENT ILLNESS: This is a 73 year old female with PMH of complicated cardiac stent placement ( Dec 2018, developed sepsis 2/2 UTI, resp failure, was subsequently intubated currently on vent through trach and PEG tube placement), asthma, DM, HTN. She presented to the ER from [facility] due to nausea and vomiting and a dry cough for the past 10 days. She has had 1 episode per day of yellow vomiting. As per nursing staff, orange emesis was noticed today while trach suctioning. She has also had diarrhea, although she is on tube feeds and has watery diarrhea at baseline since PEG placement. No associated fevers, chills, dysuria, light headedness, chest pain. She is AOx3 at baseline, and was present at bedside to assist with history and examination. She has 40+ year history of asthma, and has frequently been on Prednisone PO on and off for several years. She developed back pain a few years ago, and subsequently developed 3 vertebral fractures, which was attributed to chronic steroid use. She was due to undergo surgery, but after imaging her surgeon stated that her osteoporosis was too advanced for any benefit from surgery (Dec 2018). Around the same time, she developed chronic SOB with chest discomfort. On further cardiac workup, she was found to have ACS, and underwent stent placement at [facility]. Her recovery was complicated by sepsis 2/2 UTI, resp failure, and she was subsequently intubated for 3 weeks, after which tracheostomy was performed and a PEG tube was also placed. She was then transferred to [facility] for rehab At [facility], pt was on trach collar during day, eating, on speaking valve. transfer summary stated "She refused" Puree/thin liquids order noted 05/08 for breakfast and lunch in [place] orders. Also Continuous Glucerna orders via [facility]. UTI/ SEPSIS SECONDARY TO UTI VOMITING CHRONIC RESP FAILURE Pt has been tolerating trach collar well since this morning. History Source: Medical Record Limitations to Obtaining History: Clinical Condition - Past Medical History Cardiovascular: Yes: CAD, HTN Pulmonary: Yes: Asthma, Previously Intubated ...: No Endocrine: Yes: Diabetes Mellitus - Advance Directives Advance Directives: Yes: DNR, MOLST - Smoking History Smoking history: Former smoker Have you smoked in the past 12 months: No - Alcohol/Substance Use Hx Alcohol Use: No History - Admission Reason For Visit: ACUTE VOMITING, HYPERCALCEMIA - Diagnostics X-ray: Report Reviewed - General Mental Status: Awake and Alert Attention: Distractible - Hearing Hearing: Normal Speech Evaluation - Communication Primary Language: MONGOLIAN Secondary Language: [place] Oral Expression Ability: Yes: Non-Vocal (trach collar- unable to speak with finger occlusio with cuff deflation. Thick secretions suctioned by RT. Nursing reports pt repeats same sentence repeatedly.) - Speech Production Able to Make Needs Known: Yes: Severely Impaired - Swallow Evaluation/Bedside Assessment Current Nutritional Intake: NPO, G Tube Facial Symmetry at Rest: Symmetrical Laryngeal Movement: Able to Palpate (swallows saliva. PO trials not given) Recommendations - Speech Evaluation, Impression/Plan Impression: PMV being obtained from [facility]. Suggest PMV evaluation and MBS to assess swallowing function. - Disposition Discharge to: Intermediate Facility - Dysphagia Impressions/Plan Dysphagia Impressions: Ongoing Evaluation *Silent aspiration: cannot be R/O at bedside
[2019-05-18] MEDS ORDERED: METOCLOPRAMIDE HCL 10 MG TABLET (FP) PO SCH (16:30)
[2019-05-18] MEDS ORDERED: FERRIC CARBOXYMALTOSE 750 MG in SODIUM CHLORIDE 250 ML IVPB ONE (17:43)
--- NOTE | 2019-05-18 17:47 | PN ---
Progress Note, Physician History of Present Illness: LETHARGIC NO ACUTE DISTRESS BREATHING NON-LABORED AFEBRILE BC NO GROWTH URINE C/S ESBL - Current Medication List Current Medications: Active Medications Acetaminophen (Tylenol Oral Solution -) 650 mg PO Q6H PRN PRN Reason: PAIN LEVEL 1-5 Last Admin: 05/18/19 11:04 Dose: 650 mg Albuterol/Ipratropium (Duoneb -) 1 amp NEB RQ4H [facility] Last Admin: 05/18/19 16:15 Dose: 1 amp Ascorbic Acid (Vitamin C Oral Solution -) 500 mg GT DAILY [facility] Last Admin: 05/18/19 11:10 Dose: 500 mg Aspirin (Asa -) 81 mg GT DAILY [facility] Last Admin: 05/18/19 11:05 Dose: 81 mg Atorvastatin Calcium (Lipitor -) 80 mg GT HS [facility] Last Admin: 05/17/19 21:41 Dose: 80 mg Cholecalciferol (Vitamin D3 -) 1,000 unit GT DAILY [facility] Last Admin: 05/18/19 11:06 Dose: 1,000 unit Clonazepam (Klonopin -) 0.5 mg GT Q12H [facility] Last Admin: 05/18/19 12:29 Dose: 0.5 mg Docusate Sodium (Colace Liquid -) 50 mg GT TID [facility] Last Admin: 05/18/19 14:56 Dose: Not Given Famotidine (Pepcid) 20 mg PO BID [facility] Last Admin: 05/18/19 12:26 Dose: Not Given Ferrous Sulfate (Feosol) 300 mg GT DAILY [facility] Last Admin: 05/18/19 11:05 Dose: 300 mg Furosemide (Lasix Oral Solution -) 40 mg GT DAILY [facility] Last Admin: 05/18/19 11:09 Dose: 40 mg Haloperidol (Haldol Injection (Fast Acting) -) 2 mg IM Q4H PRN PRN Reason: AGITATION Heparin Sodium (Porcine) (Heparin -) 5,000 unit SQ BID [facility] Last Admin: 05/18/19 11:06 Dose: 5,000 unit Ertapenem 1 gm/ Sodium (Chloride) 50 mls @ 100 mls/hr IVPB DAILY [facility] Ferric Carboxymaltose 750 mg/ (Sodium Chloride) 265 mls @ 530 mls/hr IVPB ONCE ONE Stop: 05/18/19 18:12 Insulin Aspart (Novolog Vial Sliding Scale -) 1 vial SQ ACHS [facility]; Protocol Last Admin: 05/18/19 11:16 Dose: Not Given Insulin Detemir (Levemir Vial) 16 units SQ HS [facility] Metoclopramide HCl (Reglan Oral Solution -) 10 mg GT TIDAC [facility] Last Admin: 05/18/19 12:29 Dose: 10 mg Metoprolol Tartrate (Lopressor -) 25 mg GT BID [facility] Last Admin: 05/18/19 11:05 Dose: 25 mg Montelukast Sodium (Singulair -) 10 mg GT HS [facility] Last Admin: 05/17/19 21:41 Dose: 10 mg Multi-Ingredient Ointment (Zinc Oxide) 1 applic TP BID [facility] Last Admin: 05/18/19 11:10 Dose: 1 applic Polyethylene Glycol (Miralax (For Daily Use) -) 17 gm GT DAILY [facility] Last Admin: 05/18/19 11:03 Dose: Not Given Potassium Chloride (Potassium Chloride Oral Liquid) 40 meq PO BID [facility] Prednisone (Deltasone -) 20 mg GT DAILY [facility] Last Admin: 05/18/19 11:05 Dose: 20 mg - Objective Vital Signs: Vital Signs Temperature 98.9 F 05/18/19 14:00 Pulse Rate 89 05/18/19 16:22 Respiratory Rate 21 H 05/18/19 14:00 Blood Pressure 159/75 05/18/19 14:00 O2 Sat by Pulse Oximetry (%) 98 05/18/19 16:22 Constitutional: Yes: No Distress Eyes: Yes: Conjunctiva Clear Cardiovascular: Yes: Regular Rate and Rhythm, S1, S2 Respiratory: Yes: Mechanically Ventilated Edema: LLE: 1+, RLE: 1+ Labs: CBC, BMP 05/18/19 10:15 05/18/19 10:15 INR, PTT INR 1.00 (0.83-1.09) 05/13/19 18:45 Assessment/Plan UTI/ SEPSIS SECONDARY TO UTI + URINE C/S ESBL VOMITING CHRONIC RESP FAILURE PCN/ QUINOLONE ALLERGIES CVA SUBSTITUTE ERTAPENEM CONTACT PRECAUTIONS
[2019-05-18] MEDS: ERTAPENEM SODIUM 1 GM in SODIUM CHLORIDE 50 ML IVPB SCH (17:58)
[2019-05-18] MEDS: POTASSIUM CHLORIDE ORAL LIQUID 20 MEQ/15 ML PO SCH ×2 (18:11→22:36)
--- NOTE | 2019-05-18 19:17 | PN ---
Progress Note, Physician History of Present Illness: Pt seen and examined at bedside. She is more awake today. at bedside. - Current Medication List Current Medications: Active Medications Acetaminophen (Tylenol Oral Solution -) 650 mg PO Q6H PRN PRN Reason: PAIN LEVEL 1-5 Last Admin: 05/18/19 11:04 Dose: 650 mg Albuterol/Ipratropium (Duoneb -) 1 amp NEB RQ4H [facility] Last Admin: 05/18/19 16:15 Dose: 1 amp Ascorbic Acid (Vitamin C Oral Solution -) 500 mg GT DAILY [facility] Last Admin: 05/18/19 11:10 Dose: 500 mg Aspirin (Asa -) 81 mg GT DAILY [facility] Last Admin: 05/18/19 11:05 Dose: 81 mg Atorvastatin Calcium (Lipitor -) 80 mg GT HS [facility] Last Admin: 05/17/19 21:41 Dose: 80 mg Cholecalciferol (Vitamin D3 -) 1,000 unit GT DAILY [facility] Last Admin: 05/18/19 11:06 Dose: 1,000 unit Clonazepam (Klonopin -) 0.5 mg GT Q12H [facility] Last Admin: 05/18/19 12:29 Dose: 0.5 mg Docusate Sodium (Colace Liquid -) 50 mg GT TID [facility] Last Admin: 05/18/19 14:56 Dose: Not Given Famotidine (Pepcid) 20 mg PO BID [facility] Last Admin: 05/18/19 12:26 Dose: Not Given Ferrous Sulfate (Feosol) 300 mg GT DAILY [facility] Last Admin: 05/18/19 11:05 Dose: 300 mg Furosemide (Lasix Oral Solution -) 40 mg GT DAILY [facility] Last Admin: 05/18/19 11:09 Dose: 40 mg Haloperidol (Haldol Injection (Fast Acting) -) 2 mg IM Q4H PRN PRN Reason: AGITATION Heparin Sodium (Porcine) (Heparin -) 5,000 unit SQ BID [facility] Last Admin: 05/18/19 11:06 Dose: 5,000 unit Ertapenem 1 gm/ Sodium (Chloride) 50 mls @ 100 mls/hr IVPB DAILY [facility] Last Admin: 05/18/19 17:58 Dose: 100 mls/hr Insulin Aspart (Novolog Vial Sliding Scale -) 1 vial SQ ACHS [facility]; Protocol Last Admin: 05/18/19 17:58 Dose: 10 unit Insulin Detemir (Levemir Vial) 16 units SQ HS [facility] Metoclopramide HCl (Reglan Oral Solution -) 10 mg GT TIDAC [facility] Last Admin: 05/18/19 17:59 Dose: 10 mg Metoprolol Tartrate (Lopressor -) 25 mg GT BID [facility] Last Admin: 05/18/19 11:05 Dose: 25 mg Montelukast Sodium (Singulair -) 10 mg GT HS [facility] Last Admin: 05/17/19 21:41 Dose: 10 mg Multi-Ingredient Ointment (Zinc Oxide) 1 applic TP BID [facility] Last Admin: 05/18/19 11:10 Dose: 1 applic Polyethylene Glycol (Miralax (For Daily Use) -) 17 gm GT DAILY [facility] Last Admin: 05/18/19 11:03 Dose: Not Given Potassium Chloride (Potassium Chloride Oral Liquid) 40 meq PO BID [facility] Last Admin: 05/18/19 18:11 Dose: Not Given Prednisone (Deltasone -) 20 mg GT DAILY [facility] Last Admin: 05/18/19 11:05 Dose: 20 mg - Objective Vital Signs: Vital Signs Temperature 98.7 F 05/18/19 18:00 Pulse Rate 94 H 05/18/19 18:00 Respiratory Rate 21 H 05/18/19 18:00 Blood Pressure 148/73 05/18/19 18:00 O2 Sat by Pulse Oximetry (%) 98 05/18/19 16:22 Constitutional: Yes: Calm Eyes: Yes: Conjunctiva Clear HENT: Yes: Atraumatic Neck: Yes: Other (trache) Cardiovascular: Yes: S1, S2 Respiratory: Yes: Other (trache collar) Gastrointestinal: Yes: Soft Genitourinary: Yes: Incontinence Musculoskeletal: Yes: Muscle Weakness Edema: No Neurological: Yes: Other (awake) Labs: CBC, BMP 05/18/19 10:15 05/18/19 10:15 INR, PTT INR 1.00 (0.83-1.09) 05/13/19 18:45 Problem List - Problems (1) CKD (chronic kidney disease) Code(s): N18.9 - CHRONIC KIDNEY DISEASE, UNSPECIFIED (2) Hypercalcemia Code(s): E83.52 - HYPERCALCEMIA Assessment/Plan Current Medications Generic Name Dose Route Start Last Admin Trade Name Freq PRN Reason Stop Dose Admin Acetaminophen 650 mg 05/14/19 20:44 05/18/19 11:04 Tylenol Oral Solution - PO 650 mg Q6H PRN Administration PAIN LEVEL 1-5 Albuterol/Ipratropium 1 amp 05/15/19 00:00 05/18/19 16:15 Duoneb - NEB 1 amp RQ4H [facility] Administration Ascorbic Acid 500 mg 05/15/19 10:00 05/18/19 11:10 Vitamin C Oral Solution - GT 500 mg DAILY [facility] Administration Aspirin 81 mg 05/15/19 10:00 05/18/19 11:05 Asa - GT 81 mg DAILY [facility] Administration Atorvastatin Calcium 80 mg 05/14/19 22:00 05/17/19 21:41 Lipitor - GT 80 mg HS [facility] Administration Cholecalciferol 1,000 unit 05/15/19 10:00 05/18/19 11:06 Vitamin D3 - GT 1,000 unit DAILY [facility] Administration Clonazepam 0.5 mg 05/15/19 00:00 05/18/19 12:29 Klonopin - GT 0.5 mg Q12H [facility] Administration Docusate Sodium 50 mg 05/14/19 22:00 05/18/19 14:56 Colace Liquid - GT Not Given TID [facility] Famotidine 20 mg 05/18/19 11:30 05/18/19 12:26 Pepcid PO Not Given BID [facility] Ferrous Sulfate 300 mg 05/15/19 10:00 05/18/19 11:05 Feosol GT 300 mg DAILY [facility] Administration Furosemide 40 mg 05/15/19 10:00 05/18/19 11:09 Lasix Oral Solution - GT 40 mg DAILY [facility] Administration Haloperidol 2 mg 05/15/19 11:32 Haldol Injection (Fast Acting) - IM Q4H PRN [facility] Heparin Sodium (Porcine) 5,000 unit 05/14/19 22:00 05/18/19 11:06 Heparin - SQ 5,000 unit BID [facility] Administration Ertapenem 1 gm/ Sodium 50 mls @ 100 mls/hr 05/18/19 15:30 05/18/19 17:58 Chloride IVPB 100 mls/hr DAILY [facility] Administration Insulin Aspart 1 vial 05/14/19 22:00 05/18/19 17:58 Novolog Vial Sliding Scale - SQ 10 unit ACHS [facility] Administration Protocol Insulin Detemir 16 units 05/18/19 11:14 Levemir Vial SQ HS [facility] Metoclopramide HCl 10 mg 05/18/19 11:00 05/18/19 17:59 Reglan Oral Solution - GT 10 mg TIDAC [facility] Administration Metoprolol Tartrate 25 mg 05/14/19 22:00 05/18/19 11:05 Lopressor - GT 25 mg BID [facility] Administration Montelukast Sodium 10 mg 05/14/19 22:00 05/17/19 21:41 Singulair - GT 10 mg HS [facility] Administration Multi-Ingredient Ointment 1 applic 05/14/19 22:00 05/18/19 11:10 Zinc Oxide TP 1 applic BID [facility] Administration Polyethylene Glycol 17 gm 05/15/19 10:00 05/18/19 11:03 Miralax (For Daily Use) - GT Not Given DAILY [facility] Potassium Chloride 40 meq 05/18/19 17:43 05/18/19 18:11 Potassium Chloride Oral Liquid PO Not Given BID [facility] Prednisone 20 mg 05/15/19 10:00 05/18/19 11:05 Deltasone - GT 20 mg DAILY [facility] Administration Impression 1. hypercalcemia 2. DM 3. HTN 4. asthma 5. chronic resp failure 6. azotemia Plan - replace potassium - monitor calcium level - oncology eval - check spep and light chains
[2019-05-18] MEDS ORDERED: FAMOTIDINE 40 MG/5 ML ORAL SUSPENSION PO SCH (22:00)
[2019-05-18] MEDS: ATORVASTATIN CA 80 MG TABLET (FP) GT SCH (22:36)
[2019-05-18] MEDS: MONTELUKAST NA 10 MG TABLET GT SCH (22:36)
[2019-05-18] MEDS ORDERED: SODIUM CHLORIDE FOR INHALATION 3 ML VIAL.NEB IH PRN (23:56)
[2019-05-19] MEDS: ALBUTEROL SO4 2.5/IPRATROPIUM 0.5 INH SOL 3 ML VIAL.NEB. NEB SCH ×6 (00:18→20:55)
[2019-05-19] MEDS: METOCLOPRAMIDE HCL 5 MG/5 ML UNIT DOSE CUP GT SCH ×3 (06:21→22:28)
[2019-05-19] MEDS: INSULIN SLIDING SCALE (NOVOLOG) 1 VIAL SQ SCH ×4 (06:28→23:00)
[2019-05-19] MEDS: DOCUSATE NA 100 MG/10 ML UNIT-DOSE CUPS GT SCH ×2 (06:42→14:23)
[2019-05-19 08:16] LABS: BASO % 0.4 % (0-2.0); EOS % 0.6 % (0-4.5); HEMATOCRIT 29.3 % (32.4-45.2); HEMOGLOBIN 9.5 GM/dL (10.7-15.3); LYMPH % 17.3 % (8-40); MCH 25.4 pg (25.7-33.7); MCHC 32.6 g/dl (32.0-36.0); MEAN CELL VOLUME 77.8 fl (80-96); MEAN PLT VOLUME 9.1 fl (7.5-11.1); NEUT % 72.7 % (42.8-82.8); PLATELET COUNT 367 K/MM3 (134-434); RBC 3.76 M/mm3 (3.60-5.2); RDW 16.6 % (11.6-15.6); WHITE BLOOD COUNT 10.5 K/mm3 (4.0-10.0)
[2019-05-19 08:39] LABS: ALBUMIN 3.2 g/dl (3.4-5.0); BILIRUBIN,TOTAL 0.6 mg/dL (0.2-1); BLOOD UREA NITROGEN 23.3 mg/dL (7-18); CREATININE 0.9 mg/dL (0.55-1.3); MAGNESIUM 2.2 mg/dL (1.8-2.4); POTASSIUM 3.8 mmol/L (3.5-5.1); TOT PROT 7.3 g/dl (6.4-8.2)
[2019-05-19] MEDS ORDERED: METOPROLOL TARTRATE 25 MG TABLET (FP) GT SCH (10:33)
--- NOTE | 2019-05-19 10:40 | PN ---
Progress Note, Physician Chief Complaint: UTI Hypercalcemia Nausea/Vomiting History of Present Illness: NAD On trach collar right now-tolerating well RN noted bloody sputum this AM during suctioning Held aspirin+ heparin sq BP elevated this AM - Current Medication List Current Medications: Active Medications Acetaminophen (Tylenol Oral Solution -) 650 mg PO Q6H PRN PRN Reason: PAIN LEVEL 1-5 Last Admin: 05/18/19 23:48 Dose: 650 mg Albuterol/Ipratropium (Duoneb -) 1 amp NEB RQ4H [facility] Last Admin: 05/19/19 08:51 Dose: 1 amp Ascorbic Acid (Vitamin C Oral Solution -) 500 mg GT DAILY [facility] Last Admin: 05/18/19 11:10 Dose: 500 mg Aspirin (Asa -) 81 mg GT DAILY [facility] Last Admin: 05/18/19 11:05 Dose: 81 mg Atorvastatin Calcium (Lipitor -) 80 mg GT HS [facility] Last Admin: 05/18/19 22:36 Dose: 80 mg Cholecalciferol (Vitamin D3 -) 1,000 unit GT DAILY [facility] Last Admin: 05/18/19 11:06 Dose: 1,000 unit Clonazepam (Klonopin -) 0.5 mg GT Q12H [facility] Last Admin: 05/18/19 23:49 Dose: 0.5 mg Docusate Sodium (Colace Liquid -) 50 mg GT TID [facility] Last Admin: 05/19/19 06:42 Dose: Not Given Famotidine (Pepcid) 20 mg PO BID [facility] Last Admin: 05/18/19 22:39 Dose: 20 mg Ferrous Sulfate (Feosol) 300 mg GT DAILY [facility] Last Admin: 05/18/19 11:05 Dose: 300 mg Furosemide (Lasix Oral Solution -) 40 mg GT DAILY [facility] Last Admin: 05/18/19 11:09 Dose: 40 mg Haloperidol (Haldol Injection (Fast Acting) -) 2 mg IM Q4H PRN PRN Reason: AGITATION Heparin Sodium (Porcine) (Heparin -) 5,000 unit SQ BID [facility] Last Admin: 05/18/19 22:37 Dose: 5,000 unit Ertapenem 1 gm/ Sodium (Chloride) 50 mls @ 100 mls/hr IVPB DAILY [facility] Last Admin: 05/18/19 17:58 Dose: 100 mls/hr Insulin Aspart (Novolog Vial Sliding Scale -) 1 vial SQ ACHS [facility]; Protocol Last Admin: 05/19/19 06:28 Dose: 2 unit Insulin Detemir (Levemir Vial) 16 units SQ [facility] Last Admin: 05/18/19 22:37 Dose: 16 units Metoclopramide HCl (Reglan Oral Solution -) 10 mg GT TIDAC [facility] Last Admin: 05/19/19 06:21 Dose: 10 mg Metoprolol Tartrate (Lopressor -) 25 mg GT BID [facility] Last Admin: 05/18/19 22:36 Dose: 25 mg Montelukast Sodium (Singulair -) 10 mg GT HS [facility] Last Admin: 05/18/19 22:36 Dose: 10 mg Multi-Ingredient Ointment (Zinc Oxide) 1 applic TP BID [facility] Last Admin: 05/18/19 22:43 Dose: 1 applic Polyethylene Glycol (Miralax (For Daily Use) -) 17 gm GT DAILY [facility] Last Admin: 05/18/19 11:03 Dose: Not Given Potassium Chloride (Potassium Chloride Oral Liquid) 40 meq PO BID [facility] Last Admin: 05/18/19 22:36 Dose: 40 meq Prednisone (Deltasone -) 20 mg GT DAILY [facility] Last Admin: 05/18/19 11:05 Dose: 20 mg Sodium Chloride (Normal Saline For Inhalation -) 3 ml IH Q6H PRN PRN Reason: COUGH - Objective Vital Signs: Vital Signs Temperature 97.6 F 05/19/19 06:00 Pulse Rate 90 05/19/19 08:32 Respiratory Rate 24 H 05/19/19 08:32 Blood Pressure 180/80 H 05/19/19 08:32 O2 Sat by Pulse Oximetry (%) 100 05/18/19 21:51 Constitutional: Yes: Well Nourished, No Distress, Calm Cardiovascular: Yes: Regular Rate and Rhythm Respiratory: Yes: Regular, Rhonchi (diffuse), Other (trach collar) Gastrointestinal: Yes: Normal Bowel Sounds, Soft Genitourinary: Yes: Incontinence Musculoskeletal: Yes: Muscle Weakness Extremities: Yes: WNL Edema: No Peripheral Pulses WNL: Yes Neurological: Yes: Alert, Oriented Psychiatric: Yes: Alert, Oriented Labs: CBC, BMP 05/19/19 07:03 05/19/19 07:03 INR, PTT INR 1.00 (0.83-1.09) 01/29/20 18:45 Problem List - Problems (1) Anemia Assessment/Plan: -Iron % low -Started on Ferrous sulfate po daily -Stool OB negative -Also check B12, thyroid profile -Hold transfusion unless Hg <7.0 to avoid fluid overload Problems reviewed: Yes Code(s): D64.9 - ANEMIA, UNSPECIFIED (2) Diarrhea Assessment/Plan: -Check Cdiff PCR, ova& parasite+ wbc+ culture -Last dose of colace+ miralax was 05/17/19 Problems reviewed: Yes Code(s): R19.7 - DIARRHEA, UNSPECIFIED Assessment/Plan (1) UTI (urinary tract infection) Assessment/Plan: -ID on board -afebrile -no leukocytosis -IV abx changed to Ertapenem -UC positive E.coli/ESBL -Contact isolation Code(s): N39.0 - URINARY TRACT INFECTION, SITE NOT SPECIFIED (2) Hypercalcemia Assessment/Plan: -Resolved -Renal on board -M-spike not observed -pending serum protein electrophoresis -PTH related peptide pending Code(s): E83.52 - HYPERCALCEMIA (3) CKD (chronic kidney disease) Assessment/Plan: -Renal on board -monitor renal function daily -Renal US shows both kidneys are small and appear morphologically unremarkable, no gross renal stones or hydronephrosis, fatty infiltration of the liver vs hepatocellular disease Code(s): N18.9 - CHRONIC KIDNEY DISEASE, UNSPECIFIED (4) Respiratory failure with hypoxia and hypercapnia Assessment/Plan: -Pulmonary on board -mechanically ventilated -keep SpO2 >90% -Montelukast HS -Prednisone daily -PPI for GI ppx -Influenza neg -CXR shows prominent vascular structures at the bases with some questionable atelectasis at the left base -Trial of PMV -Speech therapy eval ongoing -MBS to r/o silent aspiration Code(s): J96.91 - RESPIRATORY FAILURE, UNSPECIFIED WITH HYPOXIA; J96.92 - RESPIRATORY FAILURE, UNSPECIFIED WITH HYPERCAPNIA (5) Nausea and vomiting Assessment/Plan: -CTAP shows somewhat atrophic R kidney, umbilical hernia containing non- obstructed small bowel loopsno gross evidence of acute pathology within abdomen or pelvis -no Zofran due to prolong QT -complain of nausea yesterday and feeds stopped yesterday -Feeds restarted at decreased rate at 40cc/hr-tolerating well-may increase to 50 cc/hr- observe for any further N/V -Started on Reglan 5 mg GT TID -Abd US unremarkable -Reglan 5 mg TID Code(s): R11.2 - NAUSEA WITH VOMITING, UNSPECIFIED (6) Chest pain Assessment/Plan: -resolved -EKG reviewed NSR -Cardiology on board Code(s): R07.9 - CHEST PAIN, UNSPECIFIED (7) Anxiety Assessment/Plan: -Psychiatry consult -Klonopin BID -Haldol PRN by psychiatry Code(s): F41.9 - ANXIETY DISORDER, UNSPECIFIED (8) Paranoia Assessment/Plan: -psychiatry consult appreciated Code(s): F22 - DELUSIONAL DISORDERS (9) HTN (hypertension) Assessment/Plan: -Increase Metoprolol to 50 mg po BID -Continue Furosemide Code(s): I10 - ESSENTIAL (PRIMARY) HYPERTENSION (10) Diabetes mellitus Assessment/Plan: -BGM ACHS -Levemir BID-increase to 16 U BID -ISS -HgA1c 9.4% -Endocrinology consult Code(s): E11.9 - TYPE 2 DIABETES MELLITUS WITHOUT COMPLICATIONS (11) HLD (hyperlipidemia) Assessment/Plan: -Atorvastatin Code(s): E78.5 - HYPERLIPIDEMIA, UNSPECIFIED (12) Dizziness Assessment/Plan: -EKG-no changes -monitor BP Code(s): R42 - DIZZINESS AND GIDDINESS Assessment/Plan see problem list dvt ppx
[2019-05-19] MEDS ORDERED: PT OWN MED DRAWER 7, Y5N ONE ×3 (10:52→11:43)
[2019-05-19] MEDS: predniSONE 20 MG TABLET (UD) GT SCH (11:06)
[2019-05-19] MEDS: POTASSIUM CHLORIDE ORAL LIQUID 20 MEQ/15 ML PO SCH ×2 (11:06→22:27)
[2019-05-19] MEDS: FERROUS SO4 300 MG/5 ML ORAL SOLN UNIT DOSE CUPS GT SCH (11:06)
[2019-05-19] MEDS: CHOLECALCIFEROL (VIT D3) 1,000 UNIT (25 MCG) TABLET GT SCH (11:07)
[2019-05-19] MEDS: POLYETHYLENE GLYCOL 3350 119 GM BTL GT SCH (11:08)
[2019-05-19] MEDS: FAMOTIDINE 40 MG/5 ML ORAL SUSPENSION PO SCH ×2 (11:08→22:27)
[2019-05-19] MEDS: HEPARIN NA (PORCINE) 5,000 UNITS/ML 1ML VIAL SQ SCH ×2 (11:09→22:30)
[2019-05-19] MEDS: ASPIRIN 81 MG CHEWABLE TABLETS GT SCH (11:09)
[2019-05-19] MEDS: FUROSEMIDE 40 MG/5 ML UNIT-DOSE CUP GT SCH (11:17)
[2019-05-19] MEDS: ASCORBIC ACID 500 MG/5 ML UNIT DOSE CUP GT SCH (11:17)
[2019-05-19] MEDS: PANTOPRAZOLE SOD 40 MG SUSPENSION PACKET PEG SCH (11:24)
[2019-05-19] MEDS: ERTAPENEM SODIUM 1 GM in SODIUM CHLORIDE 50 ML IVPB SCH (11:24)
[2019-05-19] MEDS: clonazePAM 0.5 MG TABLET GT SCH (11:40)
[2019-05-19] MEDS: METOPROLOL TARTRATE 25 MG TABLET (FP) GT SCH (11:40)
[2019-05-19] MEDS: METOPROLOL TARTRATE 50 MG TABLET (FP) GT SCH ×2 (11:46→22:26)
[2019-05-19] MEDS: ZINC OXIDE 20% TOPICAL OINTMENT 30 GM TUBE TP SCH ×2 (11:47→22:29)
--- NOTE | 2019-05-19 12:41 | PN ---
Progress Note (short form) - Note Progress Note: Awake and alert on Trach collar. Has been comfortable on Trach collar all night. Some blood tinged secretions were suctioned by RN. No fevers recorded. Intake & Output 05/16/19 05/17/19 05/18/19 05/19/19 23:59 23:59 23:59 23:59 Intake Total 2380 0 1250 280 Output Total 1700 500 201 Balance 2380 -1700 750 79 Last Vital Signs Temp Pulse Resp BP Pulse Ox 97.6 F 90 24 H 180/80 H 100 05/19/19 06:00 05/19/19 08:32 05/19/19 08:32 05/19/19 08:32 05/18/19 21:51 Active Medications Acetaminophen (Tylenol Oral Solution -) 650 mg PO Q6H PRN PRN Reason: PAIN LEVEL 1-5 Last Admin: 05/18/19 23:48 Dose: 650 mg Albuterol/Ipratropium (Duoneb -) 1 amp NEB RQ4H [facility] Last Admin: 05/19/19 08:51 Dose: 1 amp Ascorbic Acid (Vitamin C Oral Solution -) 500 mg GT DAILY [facility] Last Admin: 05/19/19 11:17 Dose: 500 mg Aspirin (Asa -) 81 mg GT DAILY [facility] Last Admin: 05/19/19 11:09 Dose: Not Given Atorvastatin Calcium (Lipitor -) 80 mg GT HS [facility] Last Admin: 05/18/19 22:36 Dose: 80 mg Cholecalciferol (Vitamin D3 -) 1,000 unit GT DAILY [facility] Last Admin: 05/19/19 11:07 Dose: 1,000 unit Clonazepam (Klonopin -) 0.5 mg GT Q12H [facility] Last Admin: 05/19/19 11:40 Dose: 0.5 mg Docusate Sodium (Colace Liquid -) 50 mg GT TID [facility] Last Admin: 05/19/19 06:42 Dose: Not Given Famotidine (Pepcid) 20 mg PO BID [facility] Last Admin: 05/19/19 11:08 Dose: 20 mg Ferrous Sulfate (Feosol) 300 mg GT DAILY [facility] Last Admin: 05/19/19 11:06 Dose: 300 mg Furosemide (Lasix Oral Solution -) 40 mg GT DAILY [facility] Last Admin: 05/19/19 11:17 Dose: 40 mg Haloperidol (Haldol Injection (Fast Acting) -) 2 mg IM Q4H PRN PRN Reason: AGITATION Heparin Sodium (Porcine) (Heparin -) 5,000 unit SQ BID [facility] Last Admin: 05/19/19 11:09 Dose: Not Given Ertapenem 1 gm/ Sodium (Chloride) 50 mls @ 100 mls/hr IVPB DAILY [facility] Last Admin: 05/19/19 11:24 Dose: 100 mls/hr Insulin Aspart (Novolog Vial Sliding Scale -) 1 vial SQ ACHS [facility]; Protocol Last Admin: 05/19/19 12:10 Dose: Not Given Insulin Detemir (Levemir Vial) 16 units SQ 0700,2200 [facility] Metoclopramide HCl (Reglan Oral Solution -) 10 mg GT TIDAC [facility] Last Admin: 05/19/19 11:06 Dose: 10 mg Metoprolol Tartrate (Lopressor -) 50 mg GT BID [facility] Last Admin: 05/19/19 11:46 Dose: 50 mg Montelukast Sodium (Singulair -) 10 mg GT HS [facility] Last Admin: 05/18/19 22:36 Dose: 10 mg Multi-Ingredient Ointment (Zinc Oxide) 1 applic TP BID [facility] Last Admin: 05/19/19 11:47 Dose: 1 applic Pantoprazole Sodium (Protonix Packets For Oral Suspension -) 40 mg PEG DAILY [facility] Last Admin: 05/19/19 11:24 Dose: 40 mg Polyethylene Glycol (Miralax (For Daily Use) -) 17 gm GT DAILY [facility] Last Admin: 05/19/19 11:08 Dose: Not Given Potassium Chloride (Potassium Chloride Oral Liquid) 40 meq PO BID [facility] Last Admin: 05/19/19 11:06 Dose: 40 meq Prednisone (Deltasone -) 20 mg GT DAILY [facility] Last Admin: 05/19/19 11:06 Dose: 20 mg Sodium Chloride (Normal Saline For Inhalation -) 3 ml IH Q6H PRN PRN Reason: COUGH Gen: awake and alert, NAD on Trach collar Heart: RRR Lung: decreased breath sounds at the bases Abd: soft, nontender Ext: no edema Laboratory Results - last 24 hr 05/18/19 05/18/19 05/19/19 17:56 20:50 06:25 WBC RBC Hgb Hct MCV MCH MCHC RDW Plt Count MPV Absolute Neuts (auto) Neutrophils % Lymphocytes % Monocytes % Eosinophils % Basophils % Nucleated RBC % Sodium Potassium Chloride Carbon Dioxide Anion Gap BUN Creatinine Est GFR (CKD-EPI)AfAm Est GFR (CKD-EPI)NonAf POC Glucometer 406 306 201 Random Glucose Calcium Magnesium Total Bilirubin AST ALT Alkaline Phosphatase Total Protein Albumin Vitamin B12 TSH Free T4 05/19/19 05/19/19 05/19/19 07:03 07:03 11:49 WBC 10.5 H RBC 3.76 Hgb 9.5 L Hct 29.3 L MCV 77.8 L MCH 25.4 L MCHC 32.6 RDW 16.6 H Plt Count 367 MPV 9.1 Absolute Neuts (auto) 7.6 Neutrophils % 72.7 Lymphocytes % 17.3 D Monocytes % 9.0 Eosinophils % 0.6 D Basophils % 0.4 Nucleated RBC % 0 Sodium 141 Potassium 3.8 Chloride 106 Carbon Dioxide 28 Anion Gap 6 L BUN 23.3 H Creatinine 0.9 Est GFR (CKD-EPI)AfAm 73.52 Est GFR (CKD-EPI)NonAf 63.43 POC Glucometer 191 Random Glucose 224 H Calcium 10.0 Magnesium 2.2 Total Bilirubin 0.6 AST 12 L ALT 12 L Alkaline Phosphatase 102 Total Protein 7.3 Albumin 3.2 L Vitamin B12 1154 H TSH 6.18 H Free T4 1.55 H A/P Chronic Respiratory Failure UTI CAD Asthma HTN DM - Trach collar with PMV daytime as tolerated - Can provide vent support QHS - continue antibiotics - inhaled bronchodilators - O2 to keep Spo2 >90% - on prednisone - singulair - enteral feeds - DVT/GI prophylaxis Dr Navarro
--- NOTE | 2019-05-19 12:46 | CONSULT ---
Passy-[place] Valve Eval - Assessment Prior to PMV Placement Patient and/or family educated re PMV: Yes Mental Status: Awake, Alert, Attempting to Communicate Pulse Rate: 83 O2 Sat by Pulse Oximetry (%): 100 Secretions: Small Amount Patient on Ventilator: No Patient on Trach Collar: Yes Suctioned: Yes Trach Type: Shiley Trach Size: 6.0 Inner Cannula Removed: No Cuff Status: Deflated [place] Valve in Place - Speech Characteristics Able to Phonate with PMV in place: Yes Voice Loudness: Mildly Soft/Quiet Voice Pitch: Mildly High Voice Phonatory-based Quality: Weak Speech Pattern: Impaired Speech Clarity: < 50% Nasal Resonance: Normal Articulation: Precise Voice, Other Observations: Inadequate Breath Support - Assessment with PMV in Place Pulse Rate: 88 O2 Sat by Pulse Oximetry (%): 98 Change in Mental Status with PMV in Place: No Able to Manage Secretions: Yes Pt's subjective response to PMV: Yes: Difficulty Breathing, Anxiety, Other (Pt repeatedly said I can't breath. Voice was weak, intermittent with restrictede airflow suspected. Used PMV for only 1-2 min at aq time, taking it off and trying again. Respiration more comfortable when off but still c/o difficulty breathing. O2 sat remained 98-100) Length of time with PMV in place: 1-2 min, total 5 - Recommendations Recommendations: Other (defer pmv use. Consider ENT consult, r/o airway obstruction? Trach size is 6 which should be compliant with PMV. Call placed to [facility] to speak with respiratory therapy to determine pt's tolerance of PMV at [place] facility. The RT reported that some days she could not tolerate it and other days she could for a few hours. To try again with RT.)
[2019-05-19] MEDS: LORATADINE 10 MG TABLET PO SCH (16:20)
[2019-05-19] MEDS ORDERED: INSULIN (NOVOLOG) ASPART 100 UNITS/ML 10ML VIAL ONE ×2 (17:21→18:16)
[2019-05-19 18:07] LABS: FREE KAPPA,SERUM 75.4 mg/L (3.3-19.4)
--- NOTE | 2019-05-19 18:08 | PN ---
Progress Note, Physician History of Present Illness: Pt seen and examined at bedside. She is awake and appears more comfortable. - Current Medication List Current Medications: Active Medications Acetaminophen (Tylenol Oral Solution -) 650 mg PO Q6H PRN PRN Reason: PAIN LEVEL 1-5 Last Admin: 05/18/19 23:48 Dose: 650 mg Albuterol/Ipratropium (Duoneb -) 1 amp NEB RQ4H [facility] Last Admin: 05/19/19 16:57 Dose: 1 amp Ascorbic Acid (Vitamin C Oral Solution -) 500 mg GT DAILY [facility] Last Admin: 05/19/19 11:17 Dose: 500 mg Aspirin (Asa -) 81 mg GT DAILY [facility] Last Admin: 05/19/19 11:09 Dose: Not Given Atorvastatin Calcium (Lipitor -) 80 mg GT HS [facility] Last Admin: 05/18/19 22:36 Dose: 80 mg Cholecalciferol (Vitamin D3 -) 1,000 unit GT DAILY [facility] Last Admin: 05/19/19 11:07 Dose: 1,000 unit Clonazepam (Klonopin -) 0.5 mg GT Q12H [facility] Last Admin: 05/19/19 11:40 Dose: 0.5 mg Famotidine (Pepcid) 20 mg PO BID [facility] Last Admin: 05/19/19 11:08 Dose: 20 mg Ferrous Sulfate (Feosol) 300 mg GT DAILY [facility] Last Admin: 05/19/19 11:06 Dose: 300 mg Furosemide (Lasix Oral Solution -) 40 mg GT DAILY [facility] Last Admin: 05/19/19 11:17 Dose: 40 mg Haloperidol (Haldol Injection (Fast Acting) -) 2 mg IM Q4H PRN PRN Reason: AGITATION Heparin Sodium (Porcine) (Heparin -) 5,000 unit SQ BID [facility] Last Admin: 05/19/19 11:09 Dose: Not Given Ertapenem 1 gm/ Sodium (Chloride) 50 mls @ 100 mls/hr IVPB DAILY [facility] Last Admin: 05/19/19 11:24 Dose: 100 mls/hr Insulin Aspart (Novolog Vial Sliding Scale -) 1 vial SQ ACHS [facility]; Protocol Last Admin: 05/19/19 17:23 Dose: 6 unit Insulin Detemir (Levemir Vial) 16 units SQ 0700,2200 [facility] Loratadine (Claritin -) 10 mg PO DAILY [facility] Last Admin: 05/19/19 16:20 Dose: 10 mg Metoclopramide HCl (Reglan Oral Solution -) 5 mg GT BID [facility] Metoprolol Tartrate (Lopressor -) 50 mg GT BID [facility] Last Admin: 05/19/19 11:46 Dose: 50 mg Montelukast Sodium (Singulair -) 10 mg GT HS [facility] Last Admin: 05/18/19 22:36 Dose: 10 mg Multi-Ingredient Ointment (Zinc Oxide) 1 applic TP BID [facility] Last Admin: 05/19/19 11:47 Dose: 1 applic Pantoprazole Sodium (Protonix Packets For Oral Suspension -) 40 mg PEG DAILY [facility] Last Admin: 05/19/19 11:24 Dose: 40 mg Potassium Chloride (Potassium Chloride Oral Liquid) 40 meq PO BID [facility] Last Admin: 05/19/19 11:06 Dose: 40 meq Prednisone (Deltasone -) 20 mg GT DAILY [facility] Last Admin: 05/19/19 11:06 Dose: 20 mg Sodium Chloride (Normal Saline For Inhalation -) 3 ml IH Q6H PRN PRN Reason: COUGH - Objective Vital Signs: Vital Signs Temperature 98.1 F 05/19/19 14:00 Pulse Rate 88 05/19/19 15:43 Respiratory Rate 24 H 05/19/19 14:00 Blood Pressure 162/66 05/19/19 14:00 O2 Sat by Pulse Oximetry (%) 98 05/19/19 15:43 Constitutional: Yes: Calm Eyes: Yes: Conjunctiva Clear Neck: Yes: Other (trache) Cardiovascular: Yes: S1, S2 Respiratory: Yes: Other (oxygen via trache collar) Gastrointestinal: Yes: Soft Genitourinary: Yes: Incontinence Musculoskeletal: Yes: Muscle Weakness Edema: No Labs: CBC, BMP 05/19/19 07:03 05/19/19 07:03 INR, PTT INR 1.00 (0.83-1.09) 05/13/19 18:45 Problem List - Problems (1) CKD (chronic kidney disease) Code(s): N18.9 - CHRONIC KIDNEY DISEASE, UNSPECIFIED (2) Hypercalcemia Code(s): E83.52 - HYPERCALCEMIA Assessment/Plan Current Medications Generic Name Dose Route Start Last Admin Trade Name Freq PRN Reason Stop Dose Admin Acetaminophen 650 mg 05/14/19 20:44 05/18/19 23:48 Tylenol Oral Solution - PO 650 mg Q6H PRN Administration PAIN LEVEL 1-5 Albuterol/Ipratropium 1 amp 05/15/19 00:00 05/19/19 16:57 Duoneb - NEB 1 amp RQ4H [facility] Administration Ascorbic Acid 500 mg 05/15/19 10:00 05/19/19 11:17 Vitamin C Oral Solution - GT 500 mg DAILY [facility] Administration Aspirin 81 mg 05/15/19 10:00 05/19/19 11:09 Asa - GT Not Given DAILY [facility] Atorvastatin Calcium 80 mg 05/14/19 22:00 05/18/19 22:36 Lipitor - GT 80 mg HS [facility] Administration Cholecalciferol 1,000 unit 05/15/19 10:00 05/19/19 11:07 Vitamin D3 - GT 1,000 unit DAILY [facility] Administration Clonazepam 0.5 mg 05/15/19 00:00 05/19/19 11:40 Klonopin - GT 0.5 mg Q12H [facility] Administration Famotidine 20 mg 05/18/19 11:30 05/19/19 11:08 Pepcid PO 20 mg BID [facility] Administration Ferrous Sulfate 300 mg 05/15/19 10:00 05/19/19 11:06 Feosol GT 300 mg DAILY [facility] Administration Furosemide 40 mg 05/15/19 10:00 05/19/19 11:17 Lasix Oral Solution - GT 40 mg DAILY [facility] Administration Haloperidol 2 mg 05/15/19 11:32 Haldol Injection (Fast Acting) - IM Q4H PRN [facility] Heparin Sodium (Porcine) 5,000 unit 05/14/19 22:00 05/19/19 11:09 Heparin - SQ Not Given BID [facility] Ertapenem 1 gm/ Sodium 50 mls @ 100 mls/hr 05/18/19 15:30 05/19/19 11:24 Chloride IVPB 100 mls/hr DAILY [facility] Administration Insulin Aspart 1 vial 05/14/19 22:00 05/19/19 17:23 Novolog Vial Sliding Scale - SQ 6 unit ACHS [facility] Administration Protocol Insulin Detemir 16 units 05/19/19 22:00 Levemir Vial SQ 0700,2200 [facility] Loratadine 10 mg 05/19/19 15:00 05/19/19 16:20 Claritin - PO 10 mg DAILY [facility] Administration Metoclopramide HCl 5 mg 05/19/19 22:00 Reglan Oral Solution - GT BID [facility] Metoprolol Tartrate 50 mg 05/19/19 11:45 05/19/19 11:46 Lopressor - GT 50 mg BID [facility] Administration Montelukast Sodium 10 mg 05/14/19 22:00 05/18/19 22:36 Singulair - GT 10 mg HS [facility] Administration Multi-Ingredient Ointment 1 applic 05/14/19 22:00 05/19/19 11:47 Zinc Oxide TP 1 applic BID [facility] Administration Pantoprazole Sodium 40 mg 05/19/19 10:45 05/19/19 11:24 Protonix Packets For Oral Suspension - PEG 40 mg DAILY [facility] Administration Potassium Chloride 40 meq 05/18/19 17:43 05/19/19 11:06 Potassium Chloride Oral Liquid PO 40 meq BID [facility] Administration Prednisone 20 mg 05/15/19 10:00 05/19/19 11:06 Deltasone - GT 20 mg DAILY [facility] Administration Sodium Chloride 3 ml 05/18/19 23:56 Normal Saline For Inhalation - IH Q6H PRN COUGH Impression 1. hypercalcemia 2. DM 3. HTN 4. asthma 5. chronic resp failure 6. azotemia Plan - potassium improved - monitor calcium - oncology workup in progress - monitor calcium level - check spep and light chains
[2019-05-19] MEDS ORDERED: INSULIN (LEVEMIR) 100 UNITS/ML UNITS SQ SCH (22:00)
[2019-05-19] MEDS: MONTELUKAST NA 10 MG TABLET GT SCH (22:26)
[2019-05-19] MEDS: ATORVASTATIN CA 80 MG TABLET (FP) GT SCH (22:26)
--- NOTE | 2019-05-19 23:41 | CONSULT ---
Consult Consult Specialty:: endocrine Referred by:: sunday david Reason for Consultation:: diabetes mellitus t2 /hypothyroidism - History of Present Illness Chief Complaint: weak dyspnea and high sugars History of Present Illness: 73 year old female with PMH of DM T 2,complicated cardiac stent placement (Dec 2018, developed sepsis 2/2 UTI, resp failure, was subsequently intubated currently on vent through trach and PEG tube placement), asthma,HTN. She presented to the ER from [facility] due to nausea and vomiting and a dry cough fever and sepsis,she is on trache dome awake alert yet lethargic with dyspnea at rest,she has long history of labile blood sugars on steroids,she has weakness ,fatigue and dry skin found to have hypercalcemia responsive to iv fluid and rehydration. - Past Medical History Cardio/Vascular: Yes: CAD, HTN Pulmonary: Yes: Asthma, Previously Intubated ...: No Endocrine: Yes: Diabetes Mellitus - Alcohol/Substance Use Hx Alcohol Use: No - Smoking History Smoking history: Former smoker Have you smoked in the past 12 months: No - Social History Usual Living Arrangement: [facility] Home Medications - Allergies Allergies/Adverse Reactions: Allergies Allergy/AdvReac Type Severity Reaction Status Date / Time No Known Allergies Allergy Verified 05/13/19 17:59 Review of Systems - Review of Systems Constitutional: reports: Lethargy, Weakness Eyes: reports: Blurred Vision HENT: reports: No Symptoms Neck: reports: No Symptoms Cardiovascular: reports: Shortness of Breath Respiratory: reports: Exercise Intolerance, SOB on Exertion Gastrointestinal: reports: Bloating Genitourinary: reports: No Symptoms Breasts: reports: No Symptoms Reported Musculoskeletal: reports: Muscle Pain, Muscle Cramps, Muscle Weakness Neurological: reports: Numbness, Weakness Endocrine: reports: Unexplained Weight Gain Physical Exam Vital Signs: Vital Signs Temperature 98.7 F 05/19/19 19:00 Pulse Rate 73 05/19/19 21:01 Respiratory Rate 22 H 05/19/19 19:00 Blood Pressure 146/75 05/19/19 19:00 O2 Sat by Pulse Oximetry (%) 96 05/19/19 21:01 Constitutional: Yes: Anxious Eyes: Yes: EOM Intact HENT: Yes: Normocephalic Neck: Yes: Trachea Midline Cardiovascular: Yes: Tachycardia Respiratory: Yes: Rhonchi, SOB, SOB on Exertion, Tachypnea, Wheezes Gastrointestinal: Yes: Normal Bowel Sounds ...Rectal Exam: Yes: Deferred Extremities: Yes: Delayed Capillary Refill Edema: Yes Edema: LLE: 1+, RLE: 1+ Neurological: Yes: Alert, Oriented, Weakness Labs: CBC, BMP 05/19/19 07:03 05/19/19 07:03 Problem List - Problems (1) Hypothyroidism (acquired) Problems reviewed: Yes (2) Acute vomiting Problems reviewed: Yes Code(s): R11.10 - VOMITING, UNSPECIFIED (3) Anemia Problems reviewed: Yes Code(s): D64.9 - ANEMIA, UNSPECIFIED Qualifiers: Hemolytic anemia type: acquired, autoimmune, drug-induced (4) CKD (chronic kidney disease) Code(s): N18.9 - CHRONIC KIDNEY DISEASE, UNSPECIFIED (5) Diarrhea Code(s): R19.7 - DIARRHEA, UNSPECIFIED (6) Dizziness Code(s): R42 - DIZZINESS AND GIDDINESS Assessment/Plan Current Active Problems Acute vomiting (Acute) Anemia (Acute) Anxiety (Acute) CKD (chronic kidney disease) (Acute) Chest pain (Acute) Diabetes mellitus (Acute) Diarrhea (Acute) Dizziness (Acute) HLD (hyperlipidemia) (Acute) HTN (hypertension) (Acute) Hypercalcemia (Acute) Nausea and vomiting (Acute) Paranoia (Acute) Respiratory failure with hypoxia and hypercapnia (Acute) UTI (urinary tract infection) (Acute) hypothyroidism chin[place] Abnormal Lab Results 05/16/19 05/19/19 05/19/19 08:15 07:03 07:03 WBC 10.5 H Hgb 9.5 L Hct 29.3 L MCV 77.8 L MCH 25.4 L RDW 16.6 H Anion Gap 6 L BUN 23.3 H Random Glucose 224 H AST 12 L ALT 12 L Albumin 3.2 L Vitamin B12 1154 H TSH 6.18 H Free T4 1.55 H Free [place] LC, Quant 75.4 H Free Lambda LC, Quant 38.1 H Free [place]/Lambda Ratio 1.98 H plan:\ hypothyroidism vs thyroiditis acute phase hypercalcemia etiology abnormal protein chain,dehydration vs vitamin d hyperglycemia bgm qid novolog scale ck hb a1c repeat [id number] and free t4 tsh levemir 22 am/10iu hs
[2019-05-20] MEDS: ALBUTEROL SO4 2.5/IPRATROPIUM 0.5 INH SOL 3 ML VIAL.NEB. NEB SCH ×6 (00:08→21:15)
[2019-05-20] MEDS: clonazePAM 0.5 MG TABLET GT SCH ×3 (00:41→23:01)
[2019-05-20] MEDS: INSULIN SLIDING SCALE (NOVOLOG) 1 VIAL SQ SCH ×4 (07:05→22:49)
[2019-05-20] MEDS: INSULIN (LEVEMIR) 100 UNITS/ML UNITS SQ SCH ×2 (07:07→22:48)
--- NOTE | 2019-05-20 08:46 | PN ---
Progress Note (short form) - Note Progress Note: Awake and alert on Trach collar, saturation 98%. Appears comfortable. Did not tolerate PMV yesterday. ENT evaluation was called. Improving blood tinged sputum. No acute events overnight. No fevers recorded. Intake & Output 05/17/19 05/18/19 05/19/19 05/20/19 23:59 23:59 23:59 23:59 Intake Total 0 1250 1030 840 Output Total 1700 500 201 Balance -1700 750 829 840 Last Vital Signs Temp Pulse Resp BP Pulse Ox 98.6 F 86 20 144/70 99 05/20/19 07:00 05/20/19 07:00 05/20/19 07:00 05/20/19 07:00 05/20/19 04:17 Active Medications Acetaminophen (Tylenol Oral Solution -) 650 mg PO Q6H PRN PRN Reason: PAIN LEVEL 1-5 Last Admin: 05/18/19 23:48 Dose: 650 mg Albuterol/Ipratropium (Duoneb -) 1 amp NEB RQ4H [facility] Last Admin: 05/20/19 04:17 Dose: 1 amp Ascorbic Acid (Vitamin C Oral Solution -) 500 mg GT DAILY [facility] Last Admin: 05/19/19 11:17 Dose: 500 mg Aspirin (Asa -) 81 mg GT DAILY [facility] Last Admin: 05/19/19 11:09 Dose: Not Given Atorvastatin Calcium (Lipitor -) 80 mg GT HS [facility] Last Admin: 05/19/19 22:26 Dose: 80 mg Cholecalciferol (Vitamin D3 -) 1,000 unit GT DAILY [facility] Last Admin: 05/19/19 11:07 Dose: 1,000 unit Clonazepam (Klonopin -) 0.5 mg GT Q12H [facility] Last Admin: 05/20/19 00:41 Dose: 0.5 mg Famotidine (Pepcid) 20 mg PO BID [facility] Last Admin: 05/19/19 22:27 Dose: 20 mg Ferrous Sulfate (Feosol) 300 mg GT DAILY [facility] Last Admin: 05/19/19 11:06 Dose: 300 mg Furosemide (Lasix Oral Solution -) 40 mg GT DAILY [facility] Last Admin: 05/19/19 11:17 Dose: 40 mg Haloperidol (Haldol Injection (Fast Acting) -) 2 mg IM Q4H PRN PRN Reason: AGITATION Heparin Sodium (Porcine) (Heparin -) 5,000 unit SQ BID [facility] Last Admin: 05/19/19 22:30 Dose: Not Given Ertapenem 1 gm/ Sodium (Chloride) 50 mls @ 100 mls/hr IVPB DAILY [facility] Last Admin: 05/19/19 11:24 Dose: 100 mls/hr Insulin Aspart (Novolog Vial Sliding Scale -) 1 vial SQ ACHS [facility]; Protocol Last Admin: 05/20/19 07:05 Dose: Not Given Insulin Detemir (Levemir Vial) 22 units SQ AM [facility] Last Admin: 05/20/19 07:07 Dose: 22 units Insulin Detemir (Levemir Vial) 10 units SQ HS [facility] Loratadine (Claritin -) 10 mg PO DAILY [facility] Last Admin: 05/19/19 16:20 Dose: 10 mg Metoclopramide HCl (Reglan Oral Solution -) 5 mg GT BID [facility] Last Admin: 05/19/19 22:28 Dose: 5 mg Metoprolol Tartrate (Lopressor -) 50 mg GT BID [facility] Last Admin: 05/19/19 22:26 Dose: 50 mg Montelukast Sodium (Singulair -) 10 mg GT HS [facility] Last Admin: 05/19/19 22:26 Dose: 10 mg Multi-Ingredient Ointment (Zinc Oxide) 1 applic TP BID [facility] Last Admin: 05/19/19 22:29 Dose: 1 applic Pantoprazole Sodium (Protonix Packets For Oral Suspension -) 40 mg PEG DAILY [facility] Last Admin: 05/19/19 11:24 Dose: 40 mg Potassium Chloride (Potassium Chloride Oral Liquid) 40 meq PO BID [facility] Last Admin: 05/19/19 22:27 Dose: 40 meq Prednisone (Deltasone -) 20 mg GT DAILY [facility] Last Admin: 05/19/19 11:06 Dose: 20 mg Sodium Chloride (Normal Saline For Inhalation -) 3 ml IH Q6H PRN PRN Reason: COUGH Gen: awake and alert, NAD on Trach collar Heart: RRR Lung: decreased breath sounds at the bases Abd: soft, nontender Ext: no edema Laboratory Results - last 24 hr 05/16/19 05/19/19 05/19/19 08:15 07:03 11:49 Sodium 141 Potassium 3.8 Chloride 106 Carbon Dioxide 28 Anion Gap 6 L BUN 23.3 H Creatinine 0.9 Est GFR (CKD-EPI)AfAm 73.52 Est GFR (CKD-EPI)NonAf 63.43 POC Glucometer 191 Random Glucose 224 H Calcium 10.0 Magnesium 2.2 Total Bilirubin 0.6 AST 12 L ALT 12 L Alkaline Phosphatase 102 Total Protein 7.3 Albumin 3.2 L Vitamin B12 1154 H TSH 6.18 H Free T4 1.55 H Free [place] LC, Quant 75.4 H Free Lambda LC, Quant 38.1 H Free [place]/Lambda Ratio 1.98 H 05/19/19 05/19/19 05/20/19 17:18 22:54 07:02 Sodium Potassium Chloride Carbon Dioxide Anion Gap BUN Creatinine Est GFR (CKD-EPI)AfAm Est GFR (CKD-EPI)NonAf POC Glucometer 330 196 153 Random Glucose Calcium Magnesium Total Bilirubin AST ALT Alkaline Phosphatase Total Protein Albumin Vitamin B12 TSH Free T4 Free [place] LC, Quant Free Lambda LC, Quant Free [place]/Lambda Ratio A/P Chronic Respiratory Failure UTI CAD Asthma HTN DM - Trach collar as tolerated - ENT evaluation was called - Can provide vent support QHS & PRN - continue antibiotics - inhaled bronchodilators - O2 to keep Spo2 >90% - on prednisone - singulair - enteral feeds - DVT/GI prophylaxis Dr Navarro
[2019-05-20 09:56] LABS: ALBUMIN 3.5 g/dl (3.4-5.0); BILIRUBIN,TOTAL 0.2 mg/dL (0.2-1); BLOOD UREA NITROGEN 25.5 mg/dL (7-18); CALCIUM 9.9 mg/dL (8.5-10.1); POTASSIUM 3.9 mmol/L (3.5-5.1); TOT PROT 7.5 g/dl (6.4-8.2)
--- NOTE | 2019-05-20 10:12 | PN ---
Progress Note, FIRST FRONT VENTILATOR - Note Progress Note: On 05/19-Pt's subjective response to PMV: Yes: Difficulty Breathing, Anxiety, Pt repeatedly said I can't breath. Voice was weak, intermittent with restrictede airflow suspected. Used PMV for only 1-2 min at a time, taking it off and trying again. Respiration more comfortable when off but still c/o difficulty breathing. O2 sat remained 98-100 I spoke with respiratory at [facility] who reported similar difficulty at times with PMV there, yet other days she used it comfortably all day. Reassessed with PMV. Pt suctioned, little secretions.o2 sat remained at 98-100% . Initially, there was restricted airflow, poor phonation,with c/o difficulty breathing. RT deflated cuff again,rinsed and cleanedPMV. Voicing improved, much louder but still with c/o difficulty breathing, tightness in upper chest. New PMV then used to determine if pt's PMV from [facility] may not have been functioning. Old PMV disgarded. Voice somewhat audible but still with c/o difficulty breathing, much improved when PMV removed. Defer PMV for now. Pending ENT laryngoscopy- r/o edema? etc. MBS reviewed with staff, pt. PO diet order pending. Pt did very well on MBS, with brisk swallow, (-) aspiration Consider PO trials, nocturnal TF, calorie count, towards weaning protocol. RD consult.
[2019-05-20] MEDS ORDERED: PT OWN MED DRAWER 7, Y5N ONE (10:52)
[2019-05-20] MEDS: ASCORBIC ACID 500 MG/5 ML UNIT DOSE CUP GT SCH (11:15)
[2019-05-20] MEDS: METOPROLOL TARTRATE 50 MG TABLET (FP) GT SCH ×2 (11:15→22:47)
[2019-05-20] MEDS: CHOLECALCIFEROL (VIT D3) 1,000 UNIT (25 MCG) TABLET GT SCH (11:15)
[2019-05-20] MEDS: FAMOTIDINE 40 MG/5 ML ORAL SUSPENSION PO SCH ×2 (11:16→22:49)
[2019-05-20] MEDS: PANTOPRAZOLE SOD 40 MG SUSPENSION PACKET PEG SCH (11:16)
[2019-05-20] MEDS: predniSONE 20 MG TABLET (UD) GT SCH (11:17)
[2019-05-20] MEDS: LORATADINE 10 MG TABLET PO SCH (11:17)
[2019-05-20] MEDS: FUROSEMIDE 40 MG/5 ML UNIT-DOSE CUP GT SCH (11:17)
[2019-05-20] MEDS: METOCLOPRAMIDE HCL 5 MG/5 ML UNIT DOSE CUP GT SCH ×2 (11:18→22:46)
[2019-05-20] MEDS: ASPIRIN 81 MG CHEWABLE TABLETS GT SCH (11:18)
[2019-05-20] MEDS: ERTAPENEM SODIUM 1 GM in SODIUM CHLORIDE 50 ML IVPB SCH (11:19)
[2019-05-20] MEDS: POTASSIUM CHLORIDE ORAL LIQUID 20 MEQ/15 ML PO SCH ×2 (11:19→22:49)
[2019-05-20] MEDS: FERROUS SO4 300 MG/5 ML ORAL SOLN UNIT DOSE CUPS GT SCH (11:19)
[2019-05-20] MEDS: HEPARIN NA (PORCINE) 5,000 UNITS/ML 1ML VIAL SQ SCH ×2 (11:21→22:48)
[2019-05-20] MEDS: ZINC OXIDE 20% TOPICAL OINTMENT 30 GM TUBE TP SCH ×2 (11:21→22:49)
--- NOTE | 2019-05-20 11:36 | PN ---
Progress Note, Physician Chief Complaint: UTI Hypercalcemia Nausea/Vomiting History of Present Illness: NAD On trach collar right now-tolerating well Was unable to tolerate PMV with speech therapy. As per [facility], pt tolerates PMV occasionally, and sometime does have hard time breathing on it. No more blood secretions No more diarrhea Cdiff negative BP improved on metoprolol 50 mg BID - Current Medication List Current Medications: Active Medications Acetaminophen (Tylenol Oral Solution -) 650 mg PO Q6H PRN PRN Reason: PAIN LEVEL 1-5 Last Admin: 05/18/19 23:48 Dose: 650 mg Albuterol/Ipratropium (Duoneb -) 1 amp NEB RQ4H [facility] Last Admin: 05/20/19 07:45 Dose: 1 amp Ascorbic Acid (Vitamin C Oral Solution -) 500 mg GT DAILY [facility] Last Admin: 05/20/19 11:15 Dose: 500 mg Aspirin (Asa -) 81 mg GT DAILY [facility] Last Admin: 05/20/19 11:18 Dose: Not Given Atorvastatin Calcium (Lipitor -) 80 mg GT HS [facility] Last Admin: 05/19/19 22:26 Dose: 80 mg Cholecalciferol (Vitamin D3 -) 1,000 unit GT DAILY [facility] Last Admin: 05/20/19 11:15 Dose: 1,000 unit Clonazepam (Klonopin -) 0.5 mg GT Q12H [facility] Last Admin: 05/20/19 11:26 Dose: 0.5 mg Famotidine (Pepcid) 20 mg PO BID [facility] Last Admin: 05/20/19 11:16 Dose: 20 mg Ferrous Sulfate (Feosol) 300 mg GT DAILY [facility] Last Admin: 05/20/19 11:19 Dose: 300 mg Furosemide (Lasix Oral Solution -) 40 mg GT DAILY [facility] Last Admin: 05/20/19 11:17 Dose: 40 mg Haloperidol (Haldol Injection (Fast Acting) -) 2 mg IM Q4H PRN PRN Reason: AGITATION Heparin Sodium (Porcine) (Heparin -) 5,000 unit SQ BID [facility] Last Admin: 05/20/19 11:21 Dose: Not Given Ertapenem 1 gm/ Sodium (Chloride) 50 mls @ 100 mls/hr IVPB DAILY [facility] Last Admin: 05/20/19 11:19 Dose: 100 mls/hr Insulin Aspart (Novolog Vial Sliding Scale -) 1 vial SQ [facility]; Protocol Last Admin: 05/20/19 07:05 Dose: Not Given Insulin Detemir (Levemir Vial) 22 units SQ AM [facility] Last Admin: 05/20/19 07:07 Dose: 22 units Insulin Detemir (Levemir Vial) 10 units SQ HS [facility] Loratadine (Claritin -) 10 mg PO DAILY [facility] Last Admin: 05/20/19 11:17 Dose: 10 mg Metoclopramide HCl (Reglan Oral Solution -) 5 mg GT BID [facility] Last Admin: 05/20/19 11:18 Dose: 5 mg Metoprolol Tartrate (Lopressor -) 50 mg GT BID [facility] Last Admin: 05/20/19 11:15 Dose: 50 mg Montelukast Sodium (Singulair -) 10 mg GT HS [facility] Last Admin: 05/19/19 22:26 Dose: 10 mg Multi-Ingredient Ointment (Zinc Oxide) 1 applic TP BID [facility] Last Admin: 05/20/19 11:21 Dose: 1 applic Pantoprazole Sodium (Protonix Packets For Oral Suspension -) 40 mg PEG DAILY [facility] Last Admin: 05/20/19 11:16 Dose: 40 mg Potassium Chloride (Potassium Chloride Oral Liquid) 40 meq PO BID [facility] Last Admin: 05/20/19 11:19 Dose: 40 meq Prednisone (Deltasone -) 20 mg GT DAILY [facility] Last Admin: 05/20/19 11:17 Dose: 20 mg Sodium Chloride (Normal Saline For Inhalation -) 3 ml IH Q6H PRN PRN Reason: COUGH - Objective Vital Signs: Vital Signs Temperature 98.9 F 05/20/19 11:00 Pulse Rate 92 H 05/20/19 11:00 Respiratory Rate 20 05/20/19 11:00 Blood Pressure 156/77 05/20/19 11:00 O2 Sat by Pulse Oximetry (%) 100 05/20/19 10:34 Constitutional: Yes: Well Nourished, No Distress, Calm Cardiovascular: Yes: Regular Rate and Rhythm Respiratory: Yes: Regular, Rhonchi (diffuse), Other (trach collar) Gastrointestinal: Yes: Normal Bowel Sounds, Soft Genitourinary: Yes: Incontinence Musculoskeletal: Yes: Muscle Weakness Extremities: Yes: WNL Edema: No Peripheral Pulses WNL: Yes Neurological: Yes: Alert, Oriented Psychiatric: Yes: Alert, Oriented Labs: CBC, BMP 05/19/19 07:03 05/20/19 08:20 INR, PTT INR 1.00 (0.83-1.09) 05/13/19 18:45 Problem List - Problems (1) Anemia Assessment/Plan: -Iron % low -Started on Ferrous sulfate po daily -Stool OB negative -B12 normal -thyroid profile-hypothyroid -Seen by Endocrinology -FT4 low, T3 Tot pending -Hold transfusion unless Hg <7.0 to avoid fluid overload Problems reviewed: Yes Code(s): D64.9 - ANEMIA, UNSPECIFIED Qualifiers: Hemolytic anemia type: acquired, autoimmune, drug-induced (2) Diarrhea Assessment/Plan: -Cdiff PCR,wbc+ culture pending -Last dose of colace+ miralax was 05/17/19 -Last BM on 05/18/19 -restart Colace at 300 mg po daily Problems reviewed: Yes Code(s): R19.7 - DIARRHEA, UNSPECIFIED (3) Hypothyroid Assessment/Plan: -TSH elevated, FT4 Low, T3 total pending Problems reviewed: Yes Code(s): E03.9 - HYPOTHYROIDISM, UNSPECIFIED Assessment/Plan (1) UTI (urinary tract infection) Assessment/Plan: -ID on board -afebrile -no leukocytosis -IV abx changed to Ertapenem -UC positive E.coli/ESBL -Contact isolation Code(s): N39.0 - URINARY TRACT INFECTION, SITE NOT SPECIFIED (2) Hypercalcemia Assessment/Plan: -Resolved -Renal on board -M-spike not observed -pending serum protein electrophoresis -PTH related peptide pending Code(s): E83.52 - HYPERCALCEMIA (3) CKD (chronic kidney disease) Assessment/Plan: -Renal on board -monitor renal function daily -Renal US shows both kidneys are small and appear morphologically unremarkable, no gross renal stones or hydronephrosis, fatty infiltration of the liver vs hepatocellular disease Code(s): N18.9 - CHRONIC KIDNEY DISEASE, UNSPECIFIED (4) Respiratory failure with hypoxia and hypercapnia Assessment/Plan: -Pulmonary on board -mechanically ventilated -keep SpO2 >90% -Montelukast HS -Prednisone daily -PPI for GI ppx -Influenza neg -CXR shows prominent vascular structures at the bases with some questionable atelectasis at the left base -Trial of PMV-unable to tolerate -ENT consult -Speech therapy eval ongoing -MBS shows no aspiration -start PO intake-dysphagia puree+ thin liquids+ glucerna BID -D/C tube feeds -May continue to use GT for meds. Code(s): J96.91 - RESPIRATORY FAILURE, UNSPECIFIED WITH HYPOXIA; J96.92 - RESPIRATORY FAILURE, UNSPECIFIED WITH HYPERCAPNIA (5) Nausea and vomiting Assessment/Plan: -CTAP shows somewhat atrophic R kidney, umbilical hernia containing non- obstructed small bowel loopsno gross evidence of acute pathology within abdomen or pelvis -no Zofran due to prolong QT -Abd US unremarkable -Reglan 5 mg TID Code(s): R11.2 - NAUSEA WITH VOMITING, UNSPECIFIED (6) Chest pain Assessment/Plan: -resolved -EKG reviewed NSR -Cardiology on board Code(s): R07.9 - CHEST PAIN, UNSPECIFIED (7) Anxiety Assessment/Plan: -Psychiatry consult -Klonopin BID -Haldol PRN by psychiatry Code(s): F41.9 - ANXIETY DISORDER, UNSPECIFIED (8) Paranoia Assessment/Plan: -psychiatry consult appreciated Code(s): F22 - DELUSIONAL DISORDERS (9) HTN (hypertension) Assessment/Plan: -Increase Metoprolol to 50 mg po BID -Continue Furosemide Code(s): I10 - ESSENTIAL (PRIMARY) HYPERTENSION (10) Diabetes mellitus Assessment/Plan: -BGM ACHS -Levemir BID-increase to 20 U QAM and 10 U HS -ISS -HgA1c 9.4% -Endocrinology consult appreciated Code(s): E11.9 - TYPE 2 DIABETES MELLITUS WITHOUT COMPLICATIONS (11) HLD (hyperlipidemia) Assessment/Plan: -Atorvastatin Code(s): E78.5 - HYPERLIPIDEMIA, UNSPECIFIED (12) Dizziness Assessment/Plan: -EKG-no changes -monitor BP Code(s): R42 - DIZZINESS AND GIDDINESS Assessment/Plan see problem list dvt ppx
--- NOTE | 2019-05-20 13:07 | PN ---
Progress Note, Physician History of Present Illness: Pt seen and examined at [facility]. She is awake. She is on trache collar but off of vent. - Current Medication List Current Medications: Active Medications Acetaminophen (Tylenol Oral Solution -) 650 mg PO Q6H PRN PRN Reason: PAIN LEVEL 1-5 Last Admin: 05/18/19 23:48 Dose: 650 mg Albuterol/Ipratropium (Duoneb -) 1 amp NEB RQ4H [facility] Last Admin: 05/20/19 07:45 Dose: 1 amp Ascorbic Acid (Vitamin C Oral Solution -) 500 mg GT DAILY [facility] Last Admin: 05/20/19 11:15 Dose: 500 mg Aspirin (Asa -) 81 mg GT DAILY [facility] Last Admin: 05/20/19 11:18 Dose: Not Given Atorvastatin Calcium (Lipitor -) 80 mg GT HS [facility] Last Admin: 05/19/19 22:26 Dose: 80 mg Cholecalciferol (Vitamin D3 -) 1,000 unit GT DAILY [facility] Last Admin: 05/20/19 11:15 Dose: 1,000 unit Clonazepam (Klonopin -) 0.5 mg GT Q12H [facility] Last Admin: 05/20/19 11:26 Dose: 0.5 mg Famotidine (Pepcid) 20 mg PO BID [facility] Last Admin: 05/20/19 11:16 Dose: 20 mg Ferrous Sulfate (Feosol) 300 mg GT DAILY [facility] Last Admin: 05/20/19 11:19 Dose: 300 mg Furosemide (Lasix Oral Solution -) 40 mg GT DAILY [facility] Last Admin: 05/20/19 11:17 Dose: 40 mg Haloperidol (Haldol Injection (Fast Acting) -) 2 mg IM Q4H PRN PRN Reason: AGITATION Heparin Sodium (Porcine) (Heparin -) 5,000 unit SQ BID [facility] Last Admin: 05/20/19 11:21 Dose: Not Given Ertapenem 1 gm/ Sodium (Chloride) 50 mls @ 100 mls/hr IVPB DAILY [facility] [place] Last Admin: 05/20/19 11:19 Dose: 100 mls/hr Insulin Aspart (Novolog Vial Sliding Scale -) 1 vial SQ ACHS [facility]; Protocol Last Admin: 05/20/19 12:07 Dose: Not Given Insulin Detemir (Levemir Vial) 22 units SQ AM [facility] Last Admin: 05/20/19 07:07 Dose: 22 units Insulin Detemir (Levemir Vial) 10 units SQ [facility] Loratadine (Claritin -) 10 mg PO DAILY [facility] Last Admin: 05/20/19 11:17 Dose: 10 mg Metoclopramide HCl (Reglan Oral Solution -) 5 mg GT BID [facility] Last Admin: 05/20/19 11:18 Dose: 5 mg Metoprolol Tartrate (Lopressor -) 50 mg GT BID [facility] Last Admin: 05/20/19 11:15 Dose: 50 mg Montelukast Sodium (Singulair -) 10 mg GT HS [facility] Last Admin: 05/19/19 22:26 Dose: 10 mg Multi-Ingredient Ointment (Zinc Oxide) 1 applic TP BID [facility] Last Admin: 05/20/19 11:21 Dose: 1 applic Pantoprazole Sodium (Protonix Packets For Oral Suspension -) 40 mg PEG DAILY [facility] Last Admin: 05/20/19 11:16 Dose: 40 mg Potassium Chloride (Potassium Chloride Oral Liquid) 40 meq PO BID [facility] Last Admin: 05/20/19 11:19 Dose: 40 meq Prednisone (Deltasone -) 20 mg GT DAILY [facility] [place] Last Admin: 05/20/19 11:17 Dose: 20 mg Sodium Chloride (Normal Saline For Inhalation -) 3 ml IH Q6H PRN PRN Reason: COUGH - Objective Vital Signs: Vital Signs Temperature 98.9 F 05/20/19 11:00 Pulse Rate 92 H 05/20/19 11:00 Respiratory Rate 20 05/20/19 11:00 Blood Pressure 156/77 05/20/19 11:00 O2 Sat by Pulse Oximetry (%) 100 05/20/19 10:34 Constitutional: Yes: Calm Eyes: Yes: Conjunctiva Clear HENT: Yes: Atraumatic Neck: Yes: Other (trache) Cardiovascular: Yes: S1, S2 Gastrointestinal: Yes: Soft, Other (peg) Genitourinary: Yes: Incontinence Musculoskeletal: Yes: WNL Edema: No Labs: CBC, BMP 05/19/19 07:03 05/20/19 08:20 INR, PTT INR 1.00 (0.83-1.09) 05/13/19 18:45 Problem List - Problems (1) CKD (chronic kidney disease) Code(s): N18.9 - CHRONIC KIDNEY DISEASE, UNSPECIFIED (2) Hypercalcemia Code(s): E83.52 - HYPERCALCEMIA Assessment/Plan Current Medications Generic Name Dose Route Start Last Admin Trade Name Freq PRN Reason Stop Dose Admin Acetaminophen 650 mg 05/14/19 20:44 05/18/19 23:48 Tylenol Oral Solution - PO 650 mg Q6H PRN Administration PAIN LEVEL 1-5 Albuterol/Ipratropium 1 amp 05/15/19 00:00 05/20/19 07:45 Duoneb - NEB 1 amp RQ4H [facility] Administration Ascorbic Acid 500 mg 05/15/19 10:00 05/20/19 11:15 Vitamin C Oral Solution - GT 500 mg DAILY [facility] Administration Aspirin 81 mg 05/15/19 10:00 05/20/19 11:18 Asa - GT Not Given DAILY [facility] Atorvastatin Calcium 80 mg 05/14/19 22:00 05/19/19 22:26 Lipitor - GT 80 mg HS [facility] Administration Cholecalciferol 1,000 unit 05/15/19 10:00 05/20/19 11:15 Vitamin D3 - GT 1,000 unit DAILY [facility] Administration Clonazepam 0.5 mg 05/15/19 00:00 05/20/19 11:26 Klonopin - GT 0.5 mg Q12H [facility] Administration Famotidine 20 mg 05/18/19 11:30 05/20/19 11:16 Pepcid PO 20 mg BID [facility] Administration Ferrous Sulfate 300 mg 05/15/19 10:00 05/20/19 11:19 Feosol GT 300 mg DAILY [facility] Administration Furosemide 40 mg 05/15/19 10:00 05/20/19 11:17 Lasix Oral Solution - GT 40 mg DAILY [facility] Administration Haloperidol 2 mg 05/15/19 11:32 Haldol Injection (Fast Acting) - IM Q4H PRN AGITATION Heparin Sodium (Porcine) 5,000 unit 05/14/19 22:00 05/20/19 11:21 Heparin - SQ Not Given BID [facility] Ertapenem 1 gm/ Sodium 50 mls @ 100 mls/hr 05/18/19 15:30 05/20/19 11:19 Chloride IVPB 100 mls/hr DAILY [facility] Administration Insulin Aspart 1 vial 05/20/19 07:00 05/20/19 12:07 Novolog Vial Sliding Scale - SQ Not Given ACHS [facility] Protocol Insulin Detemir 22 units 05/20/19 07:00 05/20/19 07:07 Levemir Vial SQ 22 units AM [facility] Administration Insulin Detemir 10 units 05/20/19 22:00 Levemir Vial SQ HS [facility] Loratadine 10 mg 05/19/19 15:00 05/20/19 11:17 Claritin - PO 10 mg DAILY [facility] Administration Metoclopramide HCl 5 mg 05/19/19 22:00 05/20/19 11:18 Reglan Oral Solution - GT 5 mg BID [facility] Administration Metoprolol Tartrate 50 mg 05/19/19 11:45 05/20/19 11:15 Lopressor - GT 50 mg BID [facility] Administration Montelukast Sodium 10 mg 05/14/19 22:00 05/19/19 22:26 Singulair - GT 10 mg HS [facility] Administration Multi-Ingredient Ointment 1 applic 05/14/19 22:00 05/20/19 11:21 Zinc Oxide TP 1 applic BID [facility] Administration Pantoprazole Sodium 40 mg 05/19/19 10:45 05/20/19 11:16 Protonix Packets For Oral Suspension - PEG 40 mg DAILY [facility] Administration Potassium Chloride 40 meq 05/18/19 17:43 05/20/19 11:19 Potassium Chloride Oral Liquid PO 40 meq BID [facility] Administration Prednisone 20 mg 05/15/19 10:00 05/20/19 11:17 Deltasone - GT 20 mg DAILY [facility] Administration Sodium Chloride 3 ml 05/18/19 23:56 Normal Saline For Inhalation - IH Q6H PRN COUGH Laboratory Tests 05/14/19 05/16/19 05:51 08:15 PTH Intact 10 L Free [place] LC, Quant 75.4 H Free Lambda LC, Quant 38.1 H Free [place]/Lambda Ratio 1.98 H Impression 1. hypercalcemia 2. DM 3. HTN 4. asthma 5. chronic resp failure 6. azotemia Plan - monitor lytes - calcium stabilizing - repeat labs in am - oncology follow up - light chains elevated
--- NOTE | 2019-05-20 13:17 | CON.ENT ---
Consult Consult Specialty:: ENT Referred by:: Dr. Salgado Reason for Consultation:: Passy Tori Valve difficulty - History of Present Illness Chief Complaint: trouble with Passy Tori Valve History of Present Illness: 73 yo F with hx tracheotomy, not requiring ventilation at present. significant PMH including stroke in past. past hx regarding tracheotomy (when placed, ventilation hx, etc) not completely available in this record. at this present admission pt was transferred from [facility], chronic trach trouble with Passy [place] Valve reported speech and swallowing evaluation by Dorys Castaneda reviewed pt on isolation - Microbiology review shows Urine + E. coli also Clostrioides difficile (PCR) is pending 05-19-2019 - History Source History Provided By: Medical Record Limitations to Obtaining History: Other (tracheotomy tube) - Past Medical History Cardio/Vascular: Yes: CAD, HTN Pulmonary: Yes: Asthma, Previously Intubated ...: No Endocrine: Yes: Diabetes Mellitus - Alcohol/Substance Use Hx Alcohol Use: No - Smoking History Smoking history: Former smoker Have you smoked in the past 12 months: No - Social History Usual Living Arrangement: [facility] Home Medications - Allergies Allergies/Adverse Reactions: Allergies Allergy/AdvReac Type Severity Reaction Status Date / Time No Known Allergies Allergy Verified 05/13/19 17:59 Review of Systems Unable to obtain ROS, reason: trach status Physical Exam-ENT Vital Signs: Vital Signs Temperature 98.9 F 05/20/19 11:00 Pulse Rate 92 H 05/20/19 11:00 Respiratory Rate 20 05/20/19 11:00 Blood Pressure 156/77 05/20/19 11:00 O2 Sat by Pulse Oximetry (%) 100 05/20/19 10:34 Constitutional: Yes: No Distress, Calm Head: Yes: WNL Face: Yes: WNL Outer Ear: Yes: WNL Neck: Yes: Other (#6 Shiley cuffed tracheotomy tube in place, secure, functioning, inner cannula in place and trach collar being used, breathing comfortably and no distress) Imaging - Results Chest X-ray: Report Reviewed, Image Reviewed Problem List - Problems (1) Tracheostomy status Assessment/Plan: tracheotomy tube is in place, secure and functioning there is difficulty with the patient using the passy tori valve will return to perform tracheobrochoscopy via trachetomy at bedside need to establish status of tube and rule out any tracheal problems (e.g. granuloma s/w Clarissa Hightower [employer] sometimes the patient tolerates PMV but sometimes gets SOB over one year, intermittent problems ,had deflated cuff, no problem able to swallow (MBS) duration of tracheotomy not known Code(s): Z93.0 - TRACHEOSTOMY STATUS (2) Other speech disturbances Code(s): R47.89 - OTHER SPEECH DISTURBANCES
[2019-05-20] MEDS: DOCUSATE NA 100 MG/10 ML UNIT-DOSE CUPS PO SCH ×2 (14:42→14:43)
[2019-05-20] MEDS: ACETAMINOPHEN 650 MG/20.3 ML ORAL SOLUTION (CUPS) PO PRN (16:30)
[2019-05-20] MEDS: MONTELUKAST NA 10 MG TABLET GT SCH (22:47)
[2019-05-20] MEDS: ATORVASTATIN CA 80 MG TABLET (FP) GT SCH (22:47)
--- NOTE | 2019-05-20 23:40 | PN ---
Progress Note, Physician Chief Complaint: awake alert asking for ice chips - Current Medication List Current Medications: Active Medications Acetaminophen (Tylenol Oral Solution -) 650 mg PO Q6H PRN PRN Reason: PAIN LEVEL 1-5 Last Admin: 05/20/19 16:30 Dose: 650 mg Albuterol/Ipratropium (Duoneb -) 1 amp NEB RQ4H [facility] Last Admin: 05/20/19 21:15 Dose: 1 amp Ascorbic Acid (Vitamin C Oral Solution -) 500 mg GT DAILY [facility] Last Admin: 05/20/19 11:15 Dose: 500 mg Aspirin (Asa -) 81 mg GT DAILY [facility] Last Admin: 05/20/19 11:18 Dose: Not Given Atorvastatin Calcium (Lipitor -) 80 mg GT HS [facility] Last Admin: 05/20/19 22:47 Dose: 80 mg Cholecalciferol (Vitamin D3 -) 1,000 unit GT DAILY [facility] Last Admin: 05/20/19 11:15 Dose: 1,000 unit Clonazepam (Klonopin -) 0.5 mg GT Q12H [facility] Last Admin: 05/20/19 23:01 Dose: 0.5 mg Docusate Sodium (Colace Liquid -) 300 mg PO DAILY [facility] Last Admin: 05/20/19 14:43 Dose: Not Given Famotidine (Pepcid) 20 mg PO BID [facility] Last Admin: 05/20/19 22:49 Dose: 20 mg Ferrous Sulfate (Feosol) 300 mg GT DAILY [facility] Last Admin: 05/20/19 11:19 Dose: 300 mg Furosemide (Lasix Oral Solution -) 40 mg GT DAILY [facility] Last Admin: 05/20/19 11:17 Dose: 40 mg Haloperidol (Haldol Injection (Fast Acting) -) 2 mg IM Q4H PRN PRN Reason: AGITATION Heparin Sodium (Porcine) (Heparin -) 5,000 unit SQ BID [facility] Last Admin: 05/20/19 22:48 Dose: Not Given Ertapenem 1 gm/ Sodium (Chloride) 50 mls @ 100 mls/hr IVPB DAILY [facility] Last Admin: 05/20/19 11:19 Dose: 100 mls/hr Insulin Aspart (Novolog Vial Sliding Scale -) 1 vial SQ ACHS [facility]; Protocol Last Admin: 05/20/19 22:49 Dose: 4 units Insulin Detemir (Levemir Vial) 22 units SQ AM [facility] Last Admin: 05/20/19 07:07 Dose: 22 units Insulin Detemir (Levemir Vial) 10 units SQ HS [facility] Last Admin: 05/20/19 22:48 Dose: 10 units Loratadine (Claritin -) 10 mg PO DAILY [facility] Last Admin: 05/20/19 11:17 Dose: 10 mg Metoclopramide HCl (Reglan Oral Solution -) 5 mg GT BID [facility] Last Admin: 05/20/19 22:46 Dose: 5 mg Metoprolol Tartrate (Lopressor -) 50 mg GT BID [facility] Last Admin: 05/20/19 22:47 Dose: 50 mg Montelukast Sodium (Singulair -) 10 mg GT HS [facility] Last Admin: 05/20/19 22:47 Dose: 10 mg Multi-Ingredient Ointment (Zinc Oxide) 1 applic TP BID [facility] Last Admin: 05/20/19 22:49 Dose: 1 applic Pantoprazole Sodium (Protonix Packets For Oral Suspension -) 40 mg PEG DAILY [facility] Last Admin: 05/20/19 11:16 Dose: 40 mg Potassium Chloride (Potassium Chloride Oral Liquid) 40 meq PO BID [facility] Last Admin: 05/20/19 22:49 Dose: 40 meq Prednisone (Deltasone -) 20 mg GT DAILY [facility] Last Admin: 05/20/19 11:17 Dose: 20 mg Sodium Chloride (Normal Saline For Inhalation -) 3 ml IH Q6H PRN PRN Reason: COUGH - Objective Vital Signs: Vital Signs Temperature 98.7 F 05/20/19 19:00 Pulse Rate 99 H 05/20/19 22:14 Respiratory Rate 20 05/20/19 19:00 Blood Pressure 141/61 05/20/19 19:00 O2 Sat by Pulse Oximetry (%) 98 05/20/19 22:14 Constitutional: Yes: Calm Eyes: Yes: EOM Intact HENT: Yes: Normocephalic Neck: Yes: Trachea Midline Cardiovascular: Yes: Tachycardia Respiratory: Yes: CTA Bilaterally Gastrointestinal: Yes: Normal Bowel Sounds ...Rectal Exam: Yes: Deferred Genitourinary: Yes: WNL Musculoskeletal: Yes: WNL Extremities: Yes: WNL Edema: No Neurological: Yes: Alert, Oriented Labs: CBC, BMP 05/19/19 07:03 05/20/19 08:20 INR, PTT INR 1.00 (0.83-1.09) 05/13/19 18:45 Problem List - Problems (1) Hypothyroidism (acquired) (2) Acute vomiting Code(s): R11.10 - VOMITING, UNSPECIFIED (3) Anemia Code(s): D64.9 - ANEMIA, UNSPECIFIED Qualifiers: Hemolytic anemia type: acquired, autoimmune, drug-induced (4) CKD (chronic kidney disease) Code(s): N18.9 - CHRONIC KIDNEY DISEASE, UNSPECIFIED (5) Diarrhea Code(s): R19.7 - DIARRHEA, UNSPECIFIED (6) Dizziness Code(s): R42 - DIZZINESS AND GIDDINESS Assessment/Plan Current Active Problems Acute vomiting (Acute) Anemia (Acute) Anxiety (Acute) CKD (chronic kidney disease) (Acute) Chest pain (Acute) Diabetes mellitus (Acute) Diarrhea (Acute) Dizziness (Acute) HLD (hyperlipidemia) (Acute) HTN (hypertension) (Acute) Hypercalcemia (Acute) Hypothyroid vs thyroiditis Nausea and vomiting (Acute) Other speech disturbances (Acute) Paranoia (Acute) Respiratory failure with hypoxia and hypercapnia (Acute) Tracheostomy status (Acute) UTI (urinary tract infection) (Acute) Abnormal Lab Results 05/20/19 08:20 Anion Gap 7 L BUN 25.5 H Random Glucose 170 H AST 14 L TSH 5.10 H plan: bgm qid coverage await [id number] if nl would monitor tsh for normalization post tracheoastomy
[2019-05-21] MEDS: ALBUTEROL SO4 2.5/IPRATROPIUM 0.5 INH SOL 3 ML VIAL.NEB. NEB SCH ×6 (00:40→21:39)
[2019-05-21] MEDS: INSULIN SLIDING SCALE (NOVOLOG) 1 VIAL SQ SCH ×4 (06:23→23:46)
[2019-05-21] MEDS: INSULIN (LEVEMIR) 100 UNITS/ML UNITS SQ SCH ×2 (06:51→23:45)
[2019-05-21 09:04] LABS: ALBUMIN 3.7 g/dl (3.4-5.0); BILIRUBIN,TOTAL 0.5 mg/dL (0.2-1); BLOOD UREA NITROGEN 26.4 mg/dL (7-18); CALCIUM 10.2 mg/dL (8.5-10.1); CREATININE 1.1 mg/dL (0.55-1.3); POTASSIUM 4.1 mmol/L (3.5-5.1); TOT PROT 7.6 g/dl (6.4-8.2)
--- NOTE | 2019-05-21 09:30 | PN ---
Progress Note, Physician - Current Medication List Current Medications: Active Medications Acetaminophen (Tylenol Oral Solution -) 650 mg PO Q6H PRN PRN Reason: PAIN LEVEL 1-5 Last Admin: 05/20/19 16:30 Dose: 650 mg Albuterol/Ipratropium (Duoneb -) 1 amp NEB RQ4H [facility] Last Admin: 05/21/19 04:23 Dose: 1 amp Ascorbic Acid (Vitamin C Oral Solution -) 500 mg GT DAILY [facility] Last Admin: 05/20/19 11:15 Dose: 500 mg Aspirin (Asa -) 81 mg GT DAILY [facility] Last Admin: 05/20/19 11:18 Dose: Not Given Atorvastatin Calcium (Lipitor -) 80 mg GT HS [facility] Last Admin: 05/20/19 22:47 Dose: 80 mg Cholecalciferol (Vitamin D3 -) 1,000 unit GT DAILY [facility] Last Admin: 05/20/19 11:15 Dose: 1,000 unit Clonazepam (Klonopin -) 0.5 mg GT Q12H [facility] Last Admin: 05/20/19 23:01 Dose: 0.5 mg Docusate Sodium (Colace Liquid -) 300 mg PO DAILY [facility] Last Admin: 05/20/19 14:43 Dose: Not Given Famotidine (Pepcid) 20 mg PO BID [facility] Last Admin: 05/20/19 22:49 Dose: 20 mg Ferrous Sulfate (Feosol) 300 mg GT DAILY [facility] Last Admin: 05/20/19 11:19 Dose: 300 mg Furosemide (Lasix Oral Solution -) 40 mg GT DAILY [facility] Last Admin: 05/20/19 11:17 Dose: 40 mg Haloperidol (Haldol Injection (Fast Acting) -) 2 mg IM Q4H PRN PRN Reason: AGITATION Heparin Sodium (Porcine) (Heparin -) 5,000 unit SQ BID [facility] Last Admin: 05/20/19 22:48 Dose: Not Given Ertapenem 1 gm/ Sodium (Chloride) 50 mls @ 100 mls/hr IVPB DAILY [facility] Last Admin: 05/20/19 11:19 Dose: 100 mls/hr Insulin Aspart (Novolog Vial Sliding Scale -) 1 vial SQ ACHS [facility]; Protocol Last Admin: 05/21/19 06:23 Dose: Not Given Insulin Detemir (Levemir Vial) 22 units SQ AM [facility] Last Admin: 05/21/19 06:51 Dose: 22 units Insulin Detemir (Levemir Vial) 10 units SQ HS [facility] Last Admin: 05/20/19 22:48 Dose: 10 units Loratadine (Claritin -) 10 mg PO DAILY [facility] Last Admin: 05/20/19 11:17 Dose: 10 mg Metoclopramide HCl (Reglan Oral Solution -) 5 mg GT BID [facility] Last Admin: 05/20/19 22:46 Dose: 5 mg Metoprolol Tartrate (Lopressor -) 50 mg GT BID [facility] Last Admin: 05/20/19 22:47 Dose: 50 mg Montelukast Sodium (Singulair -) 10 mg GT HS [facility] Last Admin: 05/20/19 22:47 Dose: 10 mg Multi-Ingredient Ointment (Zinc Oxide) 1 applic TP BID [facility] Last Admin: 05/20/19 22:49 Dose: 1 applic Pantoprazole Sodium (Protonix Packets For Oral Suspension -) 40 mg PEG DAILY [facility] Last Admin: 05/20/19 11:16 Dose: 40 mg Potassium Chloride (Potassium Chloride Oral Liquid) 40 meq PO BID [facility] Last Admin: 05/20/19 22:49 Dose: 40 meq Prednisone (Deltasone -) 20 mg GT DAILY [facility] Last Admin: 05/20/19 11:17 Dose: 20 mg Sodium Chloride (Normal Saline For Inhalation -) 3 ml IH Q6H PRN PRN Reason: COUGH - Objective Vital Signs: Vital Signs Temperature 99.2 F 05/21/19 06:00 Pulse Rate 92 H 05/21/19 06:00 Respiratory Rate 20 05/21/19 06:00 Blood Pressure 145/69 05/21/19 06:00 O2 Sat by Pulse Oximetry (%) 98 05/21/19 00:48 Cardiovascular: Yes: S1, S2 Respiratory: Yes: Mechanically Ventilated Gastrointestinal: Yes: Normal Bowel Sounds, Soft Labs: CBC, BMP 05/19/19 07:03 05/21/19 07:25 INR, PTT INR 1.00 (0.83-1.09) 05/13/19 18:45 Assessment/Plan (1) UTI (urinary tract infection) Assessment/Plan: -ID on board -afebrile -no leukocytosis -IV abx changed to Ertapenem--DAY 4 -UC positive E.coli/ESBL -Contact isolation Code(s): N39.0 - URINARY TRACT INFECTION, SITE NOT SPECIFIED (2) Hypercalcemia Assessment/Plan: -Resolved -Renal on board -M-spike not observed -pending serum protein electrophoresis -PTH related peptide pending Code(s): E83.52 - HYPERCALCEMIA (3) CKD (chronic kidney disease) Assessment/Plan: -Renal on board -monitor renal function daily -Renal US shows both kidneys are small and appear morphologically unremarkable, no gross renal stones or hydronephrosis, fatty infiltration of the liver vs hepatocellular disease Code(s): N18.9 - CHRONIC KIDNEY DISEASE, UNSPECIFIED (4) Respiratory failure with hypoxia and hypercapnia Assessment/Plan: -Pulmonary on board -mechanically ventilated -keep SpO2 >90% -Montelukast HS -Prednisone daily -PPI for GI ppx -Influenza neg -CXR shows prominent vascular structures at the bases with some questionable atelectasis at the left base -Trial of PMV-unable to tolerate -ENT consult Noted -Speech therapy eval ongoing -MBS shows no aspiration -start PO intake-dysphagia puree+ thin liquids+ glucerna BID -D/C tube feeds -May continue to use GT for meds. Code(s): J96.91 - RESPIRATORY FAILURE, UNSPECIFIED WITH HYPOXIA; J96.92 - RESPIRATORY FAILURE, UNSPECIFIED WITH HYPERCAPNIA (5) Nausea and vomiting Assessment/Plan: -CTAP shows somewhat atrophic R kidney, umbilical hernia containing non- obstructed small bowel loopsno gross evidence of acute pathology within abdomen or pelvis -no Zofran due to prolong QT -Abd US unremarkable -Reglan 5 mg TID Code(s): R11.2 - NAUSEA WITH VOMITING, UNSPECIFIED (6) Chest pain Assessment/Plan: -resolved -EKG reviewed NSR -Cardiology on board Code(s): R07.9 - CHEST PAIN, UNSPECIFIED (7) Anxiety Assessment/Plan: -Psychiatry consult -Klonopin BID -Haldol PRN by psychiatry Code(s): F41.9 - ANXIETY DISORDER, UNSPECIFIED (8) Paranoia Assessment/Plan: -psychiatry consult appreciated Code(s): F22 - DELUSIONAL DISORDERS (9) HTN (hypertension) Assessment/Plan: -Increase Metoprolol to 50 mg po BID -Continue Furosemide Code(s): I10 - ESSENTIAL (PRIMARY) HYPERTENSION (10) Diabetes mellitus Assessment/Plan: -BGM ACHS -Levemir BID-increase to 20 U QAM and 10 U HS -ISS -HgA1c 9.4% -Endocrinology consult appreciated Code(s): E11.9 - TYPE 2 DIABETES MELLITUS WITHOUT COMPLICATIONS (11) HLD (hyperlipidemia) Assessment/Plan: -Atorvastatin Code(s): E78.5 - HYPERLIPIDEMIA, UNSPECIFIED (12) Dizziness Assessment/Plan: -EKG-no changes -monitor BP Code(s): R42 - DIZZINESS AND GIDDINESS (13) Anemia Assessment/Plan: -Iron % low -Started on Ferrous sulfate po daily -Stool OB negative -B12 normal -thyroid profile-hypothyroid -Seen by Endocrinology -FT4 low, T3 Tot pending -Hold transfusion unless Hg <7.0 to avoid fluid overload Problems reviewed: Yes Code(s): D64.9 - ANEMIA, UNSPECIFIED Qualifiers: Hemolytic anemia type: acquired, autoimmune, drug-induced (14) Diarrhea Assessment/Plan: -Cdiff PCR,wbc+ culture pending -Last dose of colace+ miralax was 05/17/19 -Last BM on 05/18/19 -restart Colace at 300 mg po daily Problems reviewed: Yes Code(s): R19.7 - DIARRHEA, UNSPECIFIED (15) Hypothyroid Assessment/Plan: -TSH elevated, FT4 Low, T3 total pending Problems reviewed: Yes Code(s): E03.9 - HYPOTHYROIDISM, UNSPECIFIED
--- NOTE | 2019-05-21 10:18 | PN ---
Progress Note (short form) - Note Progress Note: Awake and alert on Trach collar, saturation 98%. Appears comfortable. Improved blood tinged sputum. No acute events overnight. No fevers recorded. Intake & Output 05/18/19 05/19/19 05/20/19 05/21/19 23:59 23:59 23:59 23:59 Intake Total 1250 1030 840 230 Output Total 500 201 700 900 Balance 750 829 140 -670 Last Vital Signs Temp Pulse Resp BP Pulse Ox 99.2 F 92 H 20 145/69 98 05/21/19 06:00 05/21/19 06:00 05/21/19 06:00 05/21/19 06:00 05/21/19 00:48 Active Medications Acetaminophen (Tylenol Oral Solution -) 650 mg PO Q6H PRN PRN Reason: PAIN LEVEL 1-5 Last Admin: 05/20/19 16:30 Dose: 650 mg Albuterol/Ipratropium (Duoneb -) [address] [facility] Last Admin: 05/21/19 09:45 Dose: 1 amp Ascorbic Acid (Vitamin C Oral Solution -) [address] [facility] Last Admin: 05/20/19 11:15 Dose: 500 mg Aspirin (Asa -) [address] [facility] Last Admin: 05/20/19 11:18 Dose: Not Given Atorvastatin Calcium (Lipitor -) [address] [facility] Last Admin: 05/20/19 22:47 Dose: 80 mg Cholecalciferol (Vitamin D3 -) 1,[address] [facility] Last Admin: 05/20/19 11:15 Dose: 1,000 unit Clonazepam (Klonopin -) 0.[address] [facility] Last Admin: 05/20/19 23:01 Dose: 0.5 mg Docusate Sodium (Colace Liquid -) [address] [facility] Last Admin: 05/20/19 14:43 Dose: Not Given Famotidine (Pepcid) [address] [facility] Last Admin: 05/20/19 22:49 Dose: 20 mg Ferrous Sulfate (Feosol) [address] [facility] Last Admin: 05/20/19 11:19 Dose: 300 mg Furosemide (Lasix Oral Solution -) [address] [facility] Last Admin: 05/20/19 11:17 Dose: 40 mg Haloperidol (Haldol Injection (Fast Acting) -) 2 mg IM Q4H PRN PRN Reason: AGITATION Heparin Sodium (Porcine) (Heparin -) 5,[address] [facility] Last Admin: 05/20/19 22:48 Dose: Not Given Ertapenem 1 gm/ Sodium (Chloride) 50 mls @ 100 mls/hr IVPB DAILY [facility] Last Admin: 05/20/19 11:19 Dose: 100 mls/hr Insulin Aspart (Novolog Vial Sliding Scale -) [address] [facility]; Protocol Last Admin: 05/21/19 06:23 Dose: Not Given Insulin Detemir (Levemir Vial) [address] [facility] Last Admin: 05/21/19 06:51 Dose: 22 units Insulin Detemir (Levemir Vial) [address] [facility] Last Admin: 05/20/19 22:48 Dose: 10 units Loratadine (Claritin -) [address] [facility] Last Admin: 05/20/19 11:17 Dose: 10 mg Metoclopramide HCl (Reglan Oral Solution -) [address] [facility] Last Admin: 05/20/19 22:46 Dose: 5 mg Metoprolol Tartrate (Lopressor -) [address] [facility] Last Admin: 05/20/19 22:47 Dose: 50 mg Montelukast Sodium (Singulair -) [address] [facility] Last Admin: 05/20/19 22:47 Dose: 10 mg Multi-Ingredient Ointment (Zinc Oxide) [address] [facility] Last Admin: 05/20/19 22:49 Dose: 1 applic Pantoprazole Sodium (Protonix Packets For Oral Suspension -) [address] [facility] Last Admin: 05/20/19 11:16 Dose: 40 mg Potassium Chloride (Potassium Chloride Oral Liquid) [address] [facility] Last Admin: 05/20/19 22:49 Dose: 40 meq Prednisone (Deltasone -) [address] [facility] Last Admin: 05/20/19 11:17 Dose: 20 mg Sodium Chloride (Normal Saline For Inhalation -) 3 ml IH Q6H PRN PRN Reason: COUGH Gen: awake and alert, NAD on Trach collar Heart: RRR Lung: decreased breath sounds at the bases Abd: soft, nontender Ext: no edema A/P Chronic Respiratory Failure UTI CAD Asthma HTN DM - ENT for bedside Tracheobronchoscopy - Trach collar as tolerated - Can provide vent support QHS & PRN - continue antibiotics - inhaled bronchodilators - O2 to keep Spo2 >90% - on prednisone - singulair - enteral feeds - DVT/GI prophylaxis Dr Navarro
[2019-05-21] MEDS ORDERED: PT OWN MED DRAWER 7, Y5N ONE ×2 (11:04→23:40)
[2019-05-21] MEDS: POTASSIUM CHLORIDE ORAL LIQUID 20 MEQ/15 ML PO SCH ×2 (11:23→23:46)
[2019-05-21] MEDS: ACETAMINOPHEN 650 MG/20.3 ML ORAL SOLUTION (CUPS) PO PRN (11:23)
[2019-05-21] MEDS: METOCLOPRAMIDE HCL 5 MG/5 ML UNIT DOSE CUP GT SCH ×2 (11:25→23:47)
[2019-05-21] MEDS: FAMOTIDINE 40 MG/5 ML ORAL SUSPENSION PO SCH ×2 (11:26→23:46)
[2019-05-21] MEDS: FERROUS SO4 300 MG/5 ML ORAL SOLN UNIT DOSE CUPS GT SCH (11:26)
[2019-05-21] MEDS: DOCUSATE NA 100 MG/10 ML UNIT-DOSE CUPS PO SCH (11:26)
[2019-05-21] MEDS: PANTOPRAZOLE SOD 40 MG SUSPENSION PACKET PEG SCH (11:27)
[2019-05-21] MEDS: ASPIRIN 81 MG CHEWABLE TABLETS GT SCH (11:27)
[2019-05-21] MEDS: clonazePAM 0.5 MG TABLET GT SCH ×2 (11:27→23:47)
[2019-05-21] MEDS: LORATADINE 10 MG TABLET PO SCH (11:27)
[2019-05-21] MEDS: METOPROLOL TARTRATE 50 MG TABLET (FP) GT SCH ×2 (11:28→23:45)
[2019-05-21] MEDS: predniSONE 20 MG TABLET (UD) GT SCH (11:28)
[2019-05-21] MEDS: ERTAPENEM SODIUM 1 GM in SODIUM CHLORIDE 50 ML IVPB SCH (11:28)
[2019-05-21] MEDS: ASCORBIC ACID 500 MG/5 ML UNIT DOSE CUP GT SCH (11:28)
[2019-05-21] MEDS: CHOLECALCIFEROL (VIT D3) 1,000 UNIT (25 MCG) TABLET GT SCH (11:28)
[2019-05-21] MEDS: FUROSEMIDE 40 MG/5 ML UNIT-DOSE CUP GT SCH (11:28)
[2019-05-21] MEDS: ZINC OXIDE 20% TOPICAL OINTMENT 30 GM TUBE TP SCH ×2 (11:29→23:48)
[2019-05-21] MEDS: HEPARIN NA (PORCINE) 5,000 UNITS/ML 1ML VIAL SQ SCH ×2 (11:29→23:45)
--- NOTE | 2019-05-21 15:46 | PN ---
Progress Note, Physician History of Present Illness: Pt seen and examined at bedside. She is more awake today. - Current Medication List Current Medications: Active Medications Acetaminophen (Tylenol Oral Solution -) 650 mg PO Q6H PRN PRN Reason: PAIN LEVEL 1-5 Last Admin: 05/21/19 11:23 Dose: 650 mg Albuterol/Ipratropium (Duoneb -) 1 amp NEB RQ4H [facility] Last Admin: 05/21/19 12:41 Dose: 1 amp Ascorbic Acid (Vitamin C Oral Solution -) 500 mg GT DAILY [facility] Last Admin: 05/21/19 11:28 Dose: 500 mg Aspirin (Asa -) 81 mg GT DAILY [facility] Last Admin: 05/21/19 11:27 Dose: 81 mg Atorvastatin Calcium (Lipitor -) 80 mg GT HS [facility] Last Admin: 05/20/19 22:47 Dose: 80 mg Cholecalciferol (Vitamin D3 -) 1,000 unit GT DAILY [facility] Last Admin: 05/21/19 11:28 Dose: 1,000 unit Clonazepam (Klonopin -) 0.5 mg GT Q12H [facility] Last Admin: 05/21/19 11:27 Dose: 0.5 mg Docusate Sodium (Colace Liquid -) 300 mg PO DAILY [facility] Last Admin: 05/21/19 11:26 Dose: 300 mg Famotidine (Pepcid) 20 mg PO BID [facility] Last Admin: 05/21/19 11:26 Dose: 20 mg Ferrous Sulfate (Feosol) 300 mg GT DAILY [facility] Last Admin: 05/21/19 11:26 Dose: 300 mg Furosemide (Lasix Oral Solution -) 40 mg GT DAILY [facility] Last Admin: 05/21/19 11:28 Dose: 40 mg Haloperidol (Haldol Injection (Fast Acting) -) 2 mg IM Q4H PRN PRN Reason: AGITATION Heparin Sodium (Porcine) (Heparin -) 5,000 unit SQ BID [facility] Last Admin: 05/21/19 11:29 Dose: Not Given Ertapenem 1 gm/ Sodium (Chloride) 50 mls @ 100 mls/hr IVPB DAILY [facility] Last Admin: 05/21/19 11:28 Dose: 100 mls/hr Insulin Aspart (Novolog Vial Sliding Scale -) 1 vial SQ ACHS [facility]; Protocol Last Admin: 05/21/19 11:53 Dose: Not Given Insulin Detemir (Levemir Vial) 22 units SQ AM [facility] Last Admin: 05/21/19 06:51 Dose: 22 units Insulin Detemir (Levemir Vial) 10 units SQ HS [facility] Last Admin: 05/20/19 22:48 Dose: 10 units Loratadine (Claritin -) 10 mg PO DAILY [facility] Last Admin: 05/21/19 11:27 Dose: 10 mg Metoclopramide HCl (Reglan Oral Solution -) 5 mg GT BID [facility] Last Admin: 05/21/19 11:25 Dose: 5 mg Metoprolol Tartrate (Lopressor -) 50 mg GT BID [facility] Last Admin: 05/21/19 11:28 Dose: 50 mg Montelukast Sodium (Singulair -) 10 mg GT HS [facility] Last Admin: 05/20/19 22:47 Dose: 10 mg Multi-Ingredient Ointment (Zinc Oxide) 1 applic TP BID [facility] Last Admin: 05/21/19 11:29 Dose: 1 applic Pantoprazole Sodium (Protonix Packets For Oral Suspension -) 40 mg PEG DAILY [facility] Last Admin: 05/21/19 11:27 Dose: 40 mg Potassium Chloride (Potassium Chloride Oral Liquid) 40 meq PO BID [facility] Last Admin: 05/21/19 11:23 Dose: 40 meq Prednisone (Deltasone -) 20 mg GT DAILY [facility] Last Admin: 05/21/19 11:28 Dose: 20 mg Sodium Chloride (Normal Saline For Inhalation -) 3 ml IH Q6H PRN PRN Reason: COUGH - Objective Vital Signs: Vital Signs Temperature 98.7 F 05/21/19 10:00 Pulse Rate 92 H 05/21/19 10:00 Respiratory Rate 20 05/21/19 10:00 Blood Pressure 140/57 L 05/21/19 10:00 O2 Sat by Pulse Oximetry (%) 98 05/21/19 00:48 Constitutional: Yes: Calm Eyes: Yes: Conjunctiva Clear HENT: Yes: Atraumatic Neck: Yes: Other (trache) Cardiovascular: Yes: S1, S2 Respiratory: Yes: Other (on trache collar) Gastrointestinal: Yes: Soft Genitourinary: Yes: WNL Musculoskeletal: Yes: WNL Neurological: Yes: Oriented Labs: CBC, BMP 05/19/19 07:03 05/21/19 07:25 INR, PTT INR 1.00 (0.83-1.09) 05/13/19 18:45 Problem List - Problems (1) CKD (chronic kidney disease) Code(s): N18.9 - CHRONIC KIDNEY DISEASE, UNSPECIFIED (2) Hypercalcemia Code(s): E83.52 - HYPERCALCEMIA Assessment/Plan Current Medications Generic Name Dose Route Start Last Admin Trade Name Freq PRN Reason Stop Dose Admin Acetaminophen 650 mg 05/14/19 20:44 05/21/19 11:23 Tylenol Oral Solution - PO 650 mg Q6H PRN Administration PAIN LEVEL 1-5 Albuterol/Ipratropium 1 amp 05/15/19 00:00 05/21/19 12:41 Duoneb - NEB 1 amp RQ4H [facility] Administration Ascorbic Acid 500 mg 05/15/19 10:00 05/21/19 11:28 Vitamin C Oral Solution - GT 500 mg DAILY [facility] Administration Aspirin 81 mg 05/15/19 10:00 05/21/19 11:27 Asa - GT 81 mg DAILY [facility] Administration Atorvastatin Calcium 80 mg 05/14/19 22:00 05/20/19 22:47 Lipitor - GT 80 mg HS [facility] Administration Cholecalciferol 1,000 unit 05/15/19 10:00 05/21/19 11:28 Vitamin D3 - GT 1,000 unit DAILY [facility] Administration Clonazepam 0.5 mg 05/15/19 00:00 05/21/19 11:27 Klonopin - GT 0.5 mg Q12H [facility] Administration Docusate Sodium 300 mg 05/20/19 14:00 05/21/19 11:26 Colace Liquid - PO 300 mg DAILY [facility] Administration Famotidine 20 mg 05/18/19 11:30 05/21/19 11:26 Pepcid PO 20 mg BID [facility] Administration Ferrous Sulfate 300 mg 05/15/19 10:00 05/21/19 11:26 Feosol GT 300 mg DAILY [facility] Administration Furosemide 40 mg 05/15/19 10:00 05/21/19 11:28 Lasix Oral Solution - GT 40 mg DAILY [facility] Administration Haloperidol 2 mg 05/15/19 11:32 Haldol Injection (Fast Acting) - IM Q4H PRN AGITATION Heparin Sodium (Porcine) 5,000 unit 05/14/19 22:00 05/21/19 11:29 Heparin - SQ Not Given BID [facility] Ertapenem 1 gm/ Sodium 50 mls @ 100 mls/hr 05/18/19 15:30 05/21/19 11:28 Chloride IVPB 100 mls/hr DAILY [facility] Administration Insulin Aspart 1 vial 05/20/19 07:00 05/21/19 11:53 Novolog Vial Sliding Scale - SQ Not Given ACHS [facility] Protocol Insulin Detemir 22 units 05/20/19 07:00 05/21/19 06:51 Levemir Vial SQ 22 units AM [facility] Administration Insulin Detemir 10 units 05/20/19 22:00 05/20/19 22:48 Levemir Vial SQ 10 units HS [facility] Administration Loratadine 10 mg 05/19/19 15:00 05/21/19 11:27 Claritin - PO 10 mg DAILY [facility] Administration Metoclopramide HCl 5 mg 05/19/19 22:00 05/21/19 11:25 Reglan Oral Solution - GT 5 mg BID [facility] Administration Metoprolol Tartrate 50 mg 05/19/19 11:45 05/21/19 11:28 Lopressor - GT 50 mg BID [facility] Administration Montelukast Sodium 10 mg 05/14/19 22:00 05/20/19 22:47 Singulair - GT 10 mg HS [facility] Administration Multi-Ingredient Ointment 1 applic 05/14/19 22:00 05/21/19 11:29 Zinc Oxide TP 1 applic BID [facility] Administration Pantoprazole Sodium 40 mg 05/19/19 10:45 05/21/19 11:27 Protonix Packets For Oral Suspension - PEG 40 mg DAILY [facility] Administration Potassium Chloride 40 meq 05/18/19 17:43 05/21/19 11:23 Potassium Chloride Oral Liquid PO 40 meq BID [facility] Administration Prednisone 20 mg 05/15/19 10:00 05/21/19 11:28 Deltasone - GT 20 mg DAILY [facility] Administration Sodium Chloride 3 ml 05/18/19 23:56 Normal Saline For Inhalation - IH Q6H PRN COUGH Impression 1. hypercalcemia 2. DM 3. HTN 4. asthma 5. chronic resp failure 6. azotemia Plan - cont lasix - oncology workup for hypercalcemia - monitor renal function - monitor calcium levels - light chains elevated
--- NOTE | 2019-05-21 20:28 | PN ---
Progress Note (short form) - Note Progress Note: PAtient seen and examined Last Vital Signs Temp Pulse Resp BP Pulse Ox 99.1 F 85 20 154/75 99 05/21/19 18:00 05/21/19 18:00 05/21/19 18:00 05/21/19 18:00 05/21/19 09:00 Cor: RSR, No murmurs, No gallops Lungs: Clear to P&A Abd: Soft, Normal bowel sounds, No organomegaly Ext:No significant edema Labs/Meds reviewed A/P Chronic respiratory failure/trach PEG-tube feedings Nausea/emesis Uti/sepsis Anemia- Fe+-30/ TIBC 255- Sat--11% consistent with chronic disease cannot exclude component of blood loss Hypercalcemia- No M component, SIFE no Ms víctor. Light chain ratio nl hence unlikely plasma cell dyscrasia PTH- 10 PTHrP ( ordered) ?? due to vitamin D 1000IU daily ---rquest renal input regarding this and bed ridden state CT a/p noncontrast 05/04 --no obvious pathology Given her poor performance status --goals of care discussion ? aggressivenesss of work up --imaging etc.
[2019-05-21] MEDS: ATORVASTATIN CA 80 MG TABLET (FP) GT SCH (23:45)
[2019-05-21] MEDS: MONTELUKAST NA 10 MG TABLET GT SCH (23:47)
[2019-05-22] MEDS: ALBUTEROL SO4 2.5/IPRATROPIUM 0.5 INH SOL 3 ML VIAL.NEB. NEB SCH ×6 (01:07→20:55)
[2019-05-22] MEDS: INSULIN (LEVEMIR) 100 UNITS/ML UNITS SQ SCH ×2 (06:56→23:28)
[2019-05-22] MEDS: INSULIN SLIDING SCALE (NOVOLOG) 1 VIAL SQ SCH ×4 (06:57→23:29)
--- NOTE | 2019-05-22 09:00 | PN ---
Progress Note, Physician Chief Complaint: EVENTS AND NOTES REVIEWED ON NEB VIA TRACH - Current Medication List Current Medications: Active Medications Acetaminophen (Tylenol Oral Solution -) 650 mg PO Q6H PRN PRN Reason: PAIN LEVEL 1-5 Last Admin: 05/21/19 11:23 Dose: 650 mg Albuterol/Ipratropium (Duoneb -) 1 amp NEB RQ4H [facility] Last Admin: 05/22/19 05:06 Dose: Not Given Ascorbic Acid (Vitamin C Oral Solution -) 500 mg GT DAILY [facility] Last Admin: 05/21/19 11:28 Dose: 500 mg Aspirin (Asa -) 81 mg GT DAILY [facility] Last Admin: 05/21/19 11:27 Dose: 81 mg Atorvastatin Calcium (Lipitor -) 80 mg GT [facility] Last Admin: 05/21/19 23:45 Dose: 80 mg Cholecalciferol (Vitamin D3 -) 1,000 unit GT DAILY [facility] Last Admin: 05/21/19 11:28 Dose: 1,000 unit Clonazepam (Klonopin -) 0.5 mg GT Q12H [facility] Last Admin: 05/21/19 23:47 Dose: 0.5 mg Docusate Sodium (Colace Liquid -) 300 mg PO DAILY [facility] Last Admin: 05/21/19 11:26 Dose: 300 mg Famotidine (Pepcid) 20 mg PO BID [facility] Last Admin: 05/21/19 23:46 Dose: 20 mg Ferrous Sulfate (Feosol) 300 mg GT DAILY [facility] Last Admin: 05/21/19 11:26 Dose: 300 mg Furosemide (Lasix Oral Solution -) 40 mg GT DAILY [facility] Last Admin: 05/21/19 11:28 Dose: 40 mg Haloperidol (Haldol Injection (Fast Acting) -) 2 mg IM Q4H PRN PRN Reason: AGITATION Heparin Sodium (Porcine) (Heparin -) 5,000 unit SQ BID [facility] Last Admin: 05/21/19 23:45 Dose: Not Given Ertapenem 1 gm/ Sodium (Chloride) 50 mls @ 100 mls/hr IVPB DAILY [facility] Last Admin: 05/21/19 11:28 Dose: 100 mls/hr Insulin Aspart (Novolog Vial Sliding Scale -) 1 vial SQ [facility]; Protocol Last Admin: 05/22/19 06:57 Dose: Not Given Insulin Detemir (Levemir Vial) 10 units SQ [facility] Last Admin: 02/06/20 23:45 Dose: 10 units Insulin Detemir (Levemir Vial) 28 units SQ AM [facility] Last Admin: 05/22/19 06:56 Dose: 28 units Loratadine (Claritin -) 10 mg PO DAILY [facility] Last Admin: 05/21/19 11:27 Dose: 10 mg Metoclopramide HCl (Reglan Oral Solution -) 5 mg GT BID [facility] Last Admin: 05/21/19 23:47 Dose: 5 mg Metoprolol Tartrate (Lopressor -) 50 mg GT BID [facility] Last Admin: 05/21/19 23:45 Dose: 50 mg Montelukast Sodium (Singulair -) 10 mg GT HS [facility] Last Admin: 05/21/19 23:47 Dose: 10 mg Multi-Ingredient Ointment (Zinc Oxide) 1 applic TP BID [facility] Last Admin: 05/21/19 23:48 Dose: 1 applic Pantoprazole Sodium (Protonix Packets For Oral Suspension -) 40 mg PEG DAILY [facility] Last Admin: 05/21/19 11:27 Dose: 40 mg Potassium Chloride (Potassium Chloride Oral Liquid) 40 meq PO BID [facility] Last Admin: 05/21/19 23:46 Dose: 40 meq Prednisone (Deltasone -) 20 mg GT DAILY [facility] Last Admin: 05/21/19 11:28 Dose: 20 mg Sodium Chloride (Normal Saline For Inhalation -) 3 ml IH Q6H PRN PRN Reason: COUGH - Objective Vital Signs: Vital Signs Temperature 97.4 F L 05/22/19 06:00 Pulse Rate 79 05/22/19 06:00 Respiratory Rate 20 05/22/19 06:00 Blood Pressure 120/74 05/22/19 06:00 O2 Sat by Pulse Oximetry (%) 98 05/22/19 05:05 Constitutional: Yes: Mild Distress Neck: Yes: Other (TRACHEOSTOMY) Cardiovascular: Yes: Pulse Irregular Respiratory: Yes: Diminished, Other Gastrointestinal: Yes: Soft Genitourinary: Yes: [place] Present Musculoskeletal: Yes: Muscle Weakness Edema: Yes Labs: CBC, BMP 05/19/19 07:03 05/21/19 07:25 INR, PTT INR 1.00 (0.83-1.09) 05/13/19 18:45 Problem List - Problems (1) Anemia Code(s): D64.9 - ANEMIA, UNSPECIFIED Qualifiers: Hemolytic anemia type: acquired, autoimmune, drug-induced (2) Anxiety Code(s): F41.9 - ANXIETY DISORDER, UNSPECIFIED (3) CKD (chronic kidney disease) Code(s): N18.9 - CHRONIC KIDNEY DISEASE, UNSPECIFIED (4) Chest pain Code(s): R07.9 - CHEST PAIN, UNSPECIFIED (5) Diabetes mellitus Code(s): E11.9 - TYPE 2 DIABETES MELLITUS WITHOUT COMPLICATIONS (6) Dizziness Code(s): R42 - DIZZINESS AND GIDDINESS (7) Respiratory failure with hypoxia and hypercapnia Code(s): J96.91 - RESPIRATORY FAILURE, UNSPECIFIED WITH HYPOXIA; J96.92 - RESPIRATORY FAILURE, UNSPECIFIED WITH HYPERCAPNIA (8) Tracheostomy status Code(s): Z93.0 - TRACHEOSTOMY STATUS (9) UTI (urinary tract infection) Code(s): N39.0 - URINARY TRACT INFECTION, SITE NOT SPECIFIED Assessment/Plan DR CHAKRABORTY TO RETURN FOR BEDSIDE BRONCH/AIRWAY EVAL TRACHEOSOTMY FUNCTIONING ON IV ABX FOR ESBL URINE RESP SUPPORT/NEBS DVT PROPHYLAXIS PO DIET TOLERATED
[2019-05-22] MEDS: FERROUS SO4 300 MG/5 ML ORAL SOLN UNIT DOSE CUPS GT SCH (10:55)
[2019-05-22] MEDS: METOCLOPRAMIDE HCL 5 MG/5 ML UNIT DOSE CUP GT SCH ×2 (10:55→23:31)
[2019-05-22] MEDS: POTASSIUM CHLORIDE ORAL LIQUID 20 MEQ/15 ML PO SCH ×2 (10:55→23:31)
[2019-05-22] MEDS: DOCUSATE NA 100 MG/10 ML UNIT-DOSE CUPS PO SCH (10:55)
[2019-05-22] MEDS: ASCORBIC ACID 500 MG/5 ML UNIT DOSE CUP GT SCH (10:56)
[2019-05-22] MEDS: PANTOPRAZOLE SOD 40 MG SUSPENSION PACKET PEG SCH (10:56)
[2019-05-22] MEDS: FUROSEMIDE 40 MG/5 ML UNIT-DOSE CUP GT SCH (10:56)
[2019-05-22] MEDS: HEPARIN NA (PORCINE) 5,000 UNITS/ML 1ML VIAL SQ SCH ×2 (10:57→23:28)
[2019-05-22] MEDS: FAMOTIDINE 40 MG/5 ML ORAL SUSPENSION PO SCH ×2 (10:57→23:30)
[2019-05-22] MEDS: ASPIRIN 81 MG CHEWABLE TABLETS GT SCH (10:57)
[2019-05-22] MEDS: CHOLECALCIFEROL (VIT D3) 1,000 UNIT (25 MCG) TABLET GT SCH (10:58)
[2019-05-22] MEDS: LORATADINE 10 MG TABLET PO SCH (10:58)
[2019-05-22] MEDS: predniSONE 20 MG TABLET (UD) GT SCH (10:58)
[2019-05-22] MEDS: ERTAPENEM SODIUM 1 GM in SODIUM CHLORIDE 50 ML IVPB SCH (10:58)
[2019-05-22] MEDS: METOPROLOL TARTRATE 50 MG TABLET (FP) GT SCH ×2 (10:58→23:29)
[2019-05-22] MEDS: ZINC OXIDE 20% TOPICAL OINTMENT 30 GM TUBE TP SCH ×2 (10:58→23:37)
[2019-05-22] MEDS: clonazePAM 0.5 MG TABLET GT SCH (12:27)
--- NOTE | 2019-05-22 14:42 | PN ---
Progress Note (short form) - Note Progress Note: PULMONARY TRACH COLLAR/SPO2 99% VSS/AFEBRILE Constitutional: Yes: Anxious Eyes: Yes: Conjunctiva Clear, EOM Intact HENT: Yes: Atraumatic, Normocephalic Neck: Yes: Supple, Trachea Midline Cardiovascular: Yes: Regular Rate and Rhythm Respiratory: Yes: Rhonchi, Wheezes ...Clubbing: No Gastrointestinal: Yes: Normal Bowel Sounds, Soft. No: Tenderness Edema: No Neurological: Yes: Alert, Oriented Labs: REVIEWED Imaging NOTED Assessment/Plan Chronic Respiratory Failure UTI CAD Asthma HTN DM - inhaled bronchodilators - O2 to keep Spo2 >90% - prednisone - singulair - enteral feeds - DVT/GI prophylaxis - Antibiotics Jae LOPEZ MD
--- NOTE | 2019-05-22 17:23 | PN ---
Progress Note, Physician History of Present Illness: Pt seen and examined at bedside. She is more drowsy today. - Current Medication List Current Medications: Active Medications Acetaminophen (Tylenol Oral Solution -) 650 mg PO Q6H PRN PRN Reason: PAIN LEVEL 1-5 Last Admin: 05/21/19 11:23 Dose: 650 mg Albuterol/Ipratropium (Duoneb -) 1 amp NEB RQ4H [facility] Last Admin: 05/22/19 11:39 Dose: 1 amp Ascorbic Acid (Vitamin C Oral Solution -) 500 mg GT DAILY [facility] Last Admin: 05/22/19 10:56 Dose: 500 mg Aspirin (Asa -) 81 mg GT DAILY [facility] Last Admin: 05/22/19 10:57 Dose: 81 mg Atorvastatin Calcium (Lipitor -) 80 mg GT HS [facility] Last Admin: 05/21/19 23:45 Dose: 80 mg Cholecalciferol (Vitamin D3 -) 1,000 unit GT DAILY [facility] Last Admin: 05/22/19 10:58 Dose: 1,000 unit Clonazepam (Klonopin -) 0.5 mg GT Q12H [facility] Last Admin: 05/22/19 12:27 Dose: 0.5 mg Docusate Sodium (Colace Liquid -) 300 mg PO DAILY [facility] Last Admin: 05/22/19 10:55 Dose: 300 mg Famotidine (Pepcid) 20 mg PO BID [facility] Last Admin: 05/22/19 10:57 Dose: 20 mg Ferrous Sulfate (Feosol) 300 mg GT DAILY [facility] Last Admin: 05/22/19 10:55 Dose: 300 mg Furosemide (Lasix Oral Solution -) 40 mg GT DAILY [facility] Last Admin: 05/22/19 10:56 Dose: 40 mg Haloperidol (Haldol Injection (Fast Acting) -) 2 mg IM Q4H PRN PRN Reason: AGITATION Heparin Sodium (Porcine) (Heparin -) 5,000 unit SQ BID [facility] Last Admin: 05/22/19 10:57 Dose: 5,000 unit Ertapenem 1 gm/ Sodium (Chloride) 50 mls @ 100 mls/hr IVPB DAILY [facility] Last Admin: 05/22/19 10:58 Dose: 100 mls/hr Insulin Aspart (Novolog Vial Sliding Scale -) 1 vial SQ ACHS [facility]; Protocol Last Admin: 05/22/19 12:23 Dose: 4 units Insulin Detemir (Levemir Vial) 10 units SQ HS [facility] Last Admin: 05/21/19 23:45 Dose: 10 units Insulin Detemir (Levemir Vial) 28 units SQ AM [facility] Last Admin: 05/22/19 06:56 Dose: 28 units Loratadine (Claritin -) 10 mg PO DAILY [facility] Last Admin: 05/22/19 10:58 Dose: 10 mg Metoclopramide HCl (Reglan Oral Solution -) 5 mg GT BID [facility] Last Admin: 05/22/19 10:55 Dose: 5 mg Metoprolol Tartrate (Lopressor -) 50 mg GT BID [facility] Last Admin: 05/22/19 10:58 Dose: 50 mg Montelukast Sodium (Singulair -) 10 mg GT HS [facility] Last Admin: 05/21/19 23:47 Dose: 10 mg Multi-Ingredient Ointment (Zinc Oxide) 1 applic TP BID [facility] Last Admin: 05/22/19 10:58 Dose: 1 applic Pantoprazole Sodium (Protonix Packets For Oral Suspension -) 40 mg PEG DAILY [facility] Last Admin: 05/22/19 10:56 Dose: 40 mg Potassium Chloride (Potassium Chloride Oral Liquid) 40 meq PO BID [facility] Last Admin: 05/22/19 10:55 Dose: 40 meq Prednisone (Deltasone -) 20 mg GT DAILY [facility] Last Admin: 05/22/19 10:58 Dose: 20 mg Sodium Chloride (Normal Saline For Inhalation -) 3 ml IH Q6H PRN PRN Reason: COUGH - Objective Vital Signs: Vital Signs Temperature 98.8 F 05/22/19 14:00 Pulse Rate 73 05/22/19 14:00 Respiratory Rate 20 05/22/19 14:00 Blood Pressure 149/69 05/22/19 14:00 O2 Sat by Pulse Oximetry (%) 99 05/22/19 08:25 Constitutional: Yes: Calm Eyes: Yes: Conjunctiva Clear Neck: Yes: Other (trache) Cardiovascular: Yes: S1, S2 Respiratory: Yes: Other (on trache collar) Gastrointestinal: Yes: Soft, Other (peg) Genitourinary: Yes: [place] Present Musculoskeletal: Yes: Muscle Weakness Edema: No Neurological: Yes: Other (drowsy) Labs: CBC, BMP 05/19/19 07:03 05/21/19 07:25 INR, PTT INR 1.00 (0.83-1.09) 01/29/20 18:45 Problem List - Problems (1) CKD (chronic kidney disease) Code(s): N18.9 - CHRONIC KIDNEY DISEASE, UNSPECIFIED (2) Hypercalcemia Code(s): E83.52 - HYPERCALCEMIA Assessment/Plan Current Medications Generic Name Dose Route Start Last Admin Trade Name Freq PRN Reason Stop Dose Admin Acetaminophen 650 mg 05/14/19 20:44 05/21/19 11:23 Tylenol Oral Solution - PO 650 mg Q6H PRN Administration PAIN LEVEL 1-5 Albuterol/Ipratropium 1 amp 05/15/19 00:00 05/22/19 11:39 Duoneb - NEB 1 amp RQ4H [facility] Administration Ascorbic Acid 500 mg 05/15/19 10:00 05/22/19 10:56 Vitamin C Oral Solution - GT 500 mg DAILY [facility] Administration Aspirin 81 mg 05/15/19 10:00 05/22/19 10:57 Asa - GT 81 mg DAILY [facility] Administration Atorvastatin Calcium 80 mg 05/14/19 22:00 05/21/19 23:45 Lipitor - GT 80 mg HS [facility] Administration Cholecalciferol 1,000 unit 05/15/19 10:00 05/22/19 10:58 Vitamin D3 - GT 1,000 unit DAILY [facility] Administration Clonazepam 0.5 mg 05/15/19 00:00 05/22/19 12:27 Klonopin - GT 0.5 mg Q12H [facility] Administration Docusate Sodium 300 mg 05/20/19 14:00 05/22/19 10:55 Colace Liquid - PO 300 mg DAILY [facility] Administration Famotidine 20 mg 05/18/19 11:30 05/22/19 10:57 Pepcid PO 20 mg BID [facility] Administration Ferrous Sulfate 300 mg 05/15/19 10:00 05/22/19 10:55 Feosol GT 300 mg DAILY [facility] Administration Furosemide 40 mg 05/15/19 10:00 05/22/19 10:56 Lasix Oral Solution - GT 40 mg DAILY [facility] Administration Haloperidol 2 mg 05/15/19 11:32 Haldol Injection (Fast Acting) - IM Q4H PRN AGITATION Heparin Sodium (Porcine) 5,000 unit 05/14/19 22:00 05/22/19 10:57 Heparin - SQ 5,000 unit BID [facility] Administration Ertapenem 1 gm/ Sodium 50 mls @ 100 mls/hr 05/18/19 15:30 05/22/19 10:58 Chloride IVPB 100 mls/hr DAILY [facility] Administration Insulin Aspart 1 vial 05/20/19 07:00 05/22/19 12:23 Novolog Vial Sliding Scale - SQ 4 units ACHS [facility] Administration Protocol Insulin Detemir 10 units 05/20/19 22:00 05/21/19 23:45 Levemir Vial SQ 10 units HS [facility] Administration Insulin Detemir 28 units 05/22/19 07:00 05/22/19 06:56 Levemir Vial SQ 28 units AM [facility] Administration Loratadine 10 mg 05/19/19 15:00 05/22/19 10:58 Claritin - PO 10 mg DAILY [facility] Administration Metoclopramide HCl 5 mg 05/19/19 22:00 05/22/19 10:55 Reglan Oral Solution - GT 5 mg BID [facility] Administration Metoprolol Tartrate 50 mg 05/19/19 11:45 05/22/19 10:58 Lopressor - GT 50 mg BID [facility] Administration Montelukast Sodium 10 mg 05/14/19 22:00 05/21/19 23:47 Singulair - GT 10 mg HS [facility] Administration Multi-Ingredient Ointment 1 applic 05/14/19 22:00 05/22/19 10:58 Zinc Oxide TP 1 applic BID [facility] Administration Pantoprazole Sodium 40 mg 05/19/19 10:45 05/22/19 10:56 Protonix Packets For Oral Suspension - PEG 40 mg DAILY [facility] Administration Potassium Chloride 40 meq 05/18/19 17:43 05/22/19 10:55 Potassium Chloride Oral Liquid PO 40 meq BID [facility] Administration Prednisone 20 mg 05/15/19 10:00 05/22/19 10:58 Deltasone - GT 20 mg DAILY [facility] Administration Sodium Chloride 3 ml 05/18/19 23:56 Normal Saline For Inhalation - IH Q6H PRN COUGH Impression 1. hypercalcemia 2. DM 3. HTN 4. asthma 5. chronic resp failure 6. azotemia Plan - cont lasix - monitor calcium - d/c vit d - unable to check levels as inpt - follow pthrp
[2019-05-22] MEDS ORDERED: SODIUM CHLORIDE 0.45% 1,000 ML IV SCH (17:30)
--- NOTE | 2019-05-22 18:48 | PN ---
Progress Note (short form) - Note Progress Note: ENT pts visiting, reports hx heart attack and stnets, required prolonged intubation because of asthma (3 weeks) so tracheotomy performed ~December 2018 at [facility]. had been doing well at [facility] with Passy [place] Valve, recently not able to use PMV well pt remains with tracheotomy tube on trach collar, comfortable, O2 saturation good by report PE NAD neck #6 Shiley DCT tracheotomy tube in place, secure, functioning. tracheobronchoscopy performed via tracheotomy tube: tube is patent, no obstruction tube end is in trachea, mild mucosal erythema, but NO granulation or obstruction of tube. no lesion, no secretions present madi is sharp, right and left mainstem bronchi patent without visible obstruction, no blood or secretions observed from either mainstem bronchi. Impression: Stable tracheotomy status tracheotomy tube functioning well distal trachea and madi WNL Pass[place] valve use is impaired It is possible that there has been interim swelling around the tube, so that even though she is able to inhale through the PMV and trach tube, when attempting to phonate there may be insufficient space between the outer cannula of the tracheotomy tube and the trachea. Her present tube is a Shiley 6 DCT, which is a cuffed, non-fenestrated tube. Recommend: be sure cuff is deflated when using PMV If patient's respiratory status is stable, may consider change to a non-cuffed tube, OR change to a fenestrated trach tube, which would allow freer airflow through the fenestration during PMV use (inner cannula must be out with this scenario). Jeff Fermin MD FACS Problem List - Problems (1) Tracheostomy status Code(s): Z93.0 - TRACHEOSTOMY STATUS (2) Other speech disturbances Code(s): R47.89 - OTHER SPEECH DISTURBANCES
[2019-05-22] MEDS ORDERED: FUROSEMIDE 40 MG/5 ML UNIT-DOSE CUP PO ONE (22:00)
[2019-05-22] MEDS: ATORVASTATIN CA 80 MG TABLET (FP) GT SCH (23:28)
[2019-05-22] MEDS: MONTELUKAST NA 10 MG TABLET GT SCH (23:32)
[2019-05-23] MEDS: ALBUTEROL SO4 2.5/IPRATROPIUM 0.5 INH SOL 3 ML VIAL.NEB. NEB SCH ×5 (00:23→20:50)
[2019-05-23] MEDS: INSULIN (LEVEMIR) 100 UNITS/ML UNITS SQ SCH ×2 (06:54→22:33)
[2019-05-23] MEDS: INSULIN SLIDING SCALE (NOVOLOG) 1 VIAL SQ SCH ×4 (06:56→22:34)
[2019-05-23 10:16] LABS: ALBUMIN 3.6 g/dl (3.4-5.0); BILIRUBIN,TOTAL 0.6 mg/dL (0.2-1); BLOOD UREA NITROGEN 32.4 mg/dL (7-18); CALCIUM 10.1 mg/dL (8.5-10.1); CREATININE 0.9 mg/dL (0.55-1.3); POTASSIUM 4.1 mmol/L (3.5-5.1); TOT PROT 7.5 g/dl (6.4-8.2)
[2019-05-23] MEDS: DOCUSATE NA 100 MG/10 ML UNIT-DOSE CUPS PO SCH (11:32)
[2019-05-23] MEDS: POTASSIUM CHLORIDE ORAL LIQUID 20 MEQ/15 ML PO SCH ×2 (11:32→22:32)
[2019-05-23] MEDS: ASPIRIN 81 MG CHEWABLE TABLETS GT SCH (11:32)
[2019-05-23] MEDS: FERROUS SO4 300 MG/5 ML ORAL SOLN UNIT DOSE CUPS GT SCH (11:32)
[2019-05-23] MEDS: ERTAPENEM SODIUM 1 GM in SODIUM CHLORIDE 50 ML IVPB SCH (11:34)
[2019-05-23] MEDS: FUROSEMIDE 40 MG/5 ML UNIT-DOSE CUP GT SCH (11:37)
[2019-05-23] MEDS: FAMOTIDINE 40 MG/5 ML ORAL SUSPENSION PO SCH ×2 (11:37→22:34)
[2019-05-23] MEDS: METOCLOPRAMIDE HCL 5 MG/5 ML UNIT DOSE CUP GT SCH ×2 (11:38→22:32)
[2019-05-23] MEDS: PANTOPRAZOLE SOD 40 MG SUSPENSION PACKET PEG SCH (11:38)
[2019-05-23] MEDS: ASCORBIC ACID 500 MG/5 ML UNIT DOSE CUP GT SCH (11:38)
[2019-05-23] MEDS: HEPARIN NA (PORCINE) 5,000 UNITS/ML 1ML VIAL SQ SCH ×2 (11:39→22:33)
[2019-05-23] MEDS: predniSONE 20 MG TABLET (UD) GT SCH (11:40)
[2019-05-23] MEDS: clonazePAM 0.5 MG TABLET GT SCH ×3 (11:40→23:07)
[2019-05-23] MEDS: LORATADINE 10 MG TABLET PO SCH (11:40)
[2019-05-23] MEDS: METOPROLOL TARTRATE 50 MG TABLET (FP) GT SCH ×2 (11:40→22:33)
[2019-05-23] MEDS: ZINC OXIDE 20% TOPICAL OINTMENT 30 GM TUBE TP SCH ×2 (11:58→22:35)
--- NOTE | 2019-05-23 12:34 | PN ---
Progress Note (short form) - Note Progress Note: PULMONARY TRACH COLLAR/SPO2 99% VSS/LOW GRADE TEMP Constitutional: Yes: Anxious Eyes: Yes: Conjunctiva Clear, EOM Intact HENT: Yes: Atraumatic, Normocephalic Neck: Yes: Supple, Trachea Midline Cardiovascular: Yes: Regular Rate and Rhythm Respiratory: Yes: Rhonchi, Wheezes ...Clubbing: No Gastrointestinal: Yes: Normal Bowel Sounds, Soft. No: Tenderness Edema: No Neurological: Yes: Alert, Oriented Labs: REVIEWED Imaging NOTED Assessment/Plan Chronic Respiratory Failure UTI CAD Asthma HTN DM - inhaled bronchodilators - O2 to keep Spo2 >90% - prednisone - singulair - enteral feeds - DVT/GI prophylaxis - Antibiotics - will continue to attempt PMV while at [facility] Jae LOPEZ MD
--- NOTE | 2019-05-23 15:32 | PN ---
Progress Note, Physician Chief Complaint: UTI Hypercalcemia Nausea/Vomiting History of Present Illness: NAD Denies any pain,N/V/D On trach collar right now-tolerating well Was unable to tolerate PMV with speech therapy. As per [facility], pt tolerates PMV occasionally, and sometime does have hard time breathing on it. No more blood secretions Cdiff negative BP improved on metoprolol 50 mg BID - Current Medication List Current Medications: Active Medications Acetaminophen (Tylenol Oral Solution -) 650 mg PO Q6H PRN PRN Reason: PAIN LEVEL 1-5 Last Admin: 05/21/19 11:23 Dose: 650 mg Albuterol/Ipratropium (Duoneb -) 1 amp NEB RQ4H [facility] Last Admin: 05/23/19 11:37 Dose: 1 amp Ascorbic Acid (Vitamin C Oral Solution -) 500 mg GT DAILY [facility] Last Admin: 05/23/19 11:38 Dose: 500 mg Aspirin (Asa -) 81 mg GT DAILY [facility] Last Admin: 05/23/19 11:32 Dose: 81 mg Atorvastatin Calcium (Lipitor -) 80 mg GT HS [facility] Last Admin: 05/22/19 23:28 Dose: 80 mg Clonazepam (Klonopin -) 0.5 mg GT Q12H [facility] Last Admin: 05/23/19 11:40 Dose: 0.5 mg Docusate Sodium (Colace Liquid -) 300 mg PO DAILY [facility] Last Admin: 05/23/19 11:32 Dose: 300 mg Famotidine (Pepcid) 20 mg PO BID [facility] Last Admin: 05/23/19 11:37 Dose: 20 mg Ferrous Sulfate (Feosol) 300 mg GT DAILY [facility] Last Admin: 05/23/19 11:32 Dose: 300 mg Furosemide (Lasix Oral Solution -) 40 mg GT DAILY [facility] Last Admin: 05/23/19 11:37 Dose: 40 mg Haloperidol (Haldol Injection (Fast Acting) -) 2 mg IM Q4H PRN PRN Reason: AGITATION Heparin Sodium (Porcine) (Heparin -) 5,000 unit SQ BID [facility] Last Admin: 05/23/19 11:39 Dose: 5,000 unit Ertapenem 1 gm/ Sodium (Chloride) 50 mls @ 100 mls/hr IVPB DAILY [facility] Last Admin: 05/23/19 11:34 Dose: 100 mls/hr Insulin Aspart (Novolog Vial Sliding Scale -) 1 vial SQ ACHS [facility]; Protocol Last Admin: 05/23/19 11:59 Dose: Not Given Insulin Detemir (Levemir Vial) 10 units SQ HS [facility] Last Admin: 05/22/19 23:28 Dose: 10 units Insulin Detemir (Levemir Vial) 28 units SQ AM [facility] Last Admin: 05/23/19 06:54 Dose: 28 units Loratadine (Claritin -) 10 mg PO DAILY [facility] Last Admin: 05/23/19 11:40 Dose: 10 mg Metoclopramide HCl (Reglan Oral Solution -) 5 mg GT BID [facility] Last Admin: 05/23/19 11:38 Dose: 5 mg Metoprolol Tartrate (Lopressor -) 50 mg GT BID [facility] Last Admin: 05/23/19 11:40 Dose: 50 mg Montelukast Sodium (Singulair -) 10 mg GT [facility] Last Admin: 05/22/19 23:32 Dose: 10 mg Multi-Ingredient Ointment (Zinc Oxide) 1 applic TP BID [facility] Last Admin: 05/23/19 11:58 Dose: 1 applic Pantoprazole Sodium (Protonix Packets For Oral Suspension -) 40 mg PEG DAILY [facility] Last Admin: 05/23/19 11:38 Dose: 40 mg Potassium Chloride (Potassium Chloride Oral Liquid) 40 meq PO BID [facility] Last Admin: 05/23/19 11:32 Dose: 40 meq Prednisone (Deltasone -) 20 mg GT DAILY [facility] Last Admin: 05/23/19 11:40 Dose: 20 mg Sodium Chloride (Normal Saline For Inhalation -) 3 ml IH Q6H PRN PRN Reason: COUGH - Objective Vital Signs: Vital Signs Temperature 99.0 F 05/23/19 09:30 Pulse Rate 80 05/23/19 09:30 Respiratory Rate 20 05/23/19 09:30 Blood Pressure 140/66 05/23/19 09:30 O2 Sat by Pulse Oximetry (%) 99 05/23/19 11:36 Constitutional: Yes: Well Nourished, No Distress, Calm Cardiovascular: Yes: Regular Rate and Rhythm Respiratory: Yes: Regular, Other (trach collar) Gastrointestinal: Yes: Normal Bowel Sounds, Soft Genitourinary: Yes: Incontinence Musculoskeletal: Yes: Muscle Weakness Extremities: Yes: WNL Edema: No Peripheral Pulses WNL: Yes Neurological: Yes: Alert, Oriented Psychiatric: Yes: Alert, Oriented Labs: CBC, BMP 05/19/19 07:03 05/23/19 06:00 INR, PTT INR 1.00 (0.83-1.09) 05/13/19 18:45 Problem List - Problems (1) Anemia Assessment/Plan: -Iron % low -Started on Ferrous sulfate po daily -Stool OB negative -B12 normal -thyroid profile-hypothyroid -Seen by Endocrinology -FT4 low, T3 Tot normal -Hold transfusion unless Hg <7.0 to avoid fluid overload Problems reviewed: Yes Code(s): D64.9 - ANEMIA, UNSPECIFIED Qualifiers: Hemolytic anemia type: acquired, autoimmune, drug-induced (2) Diarrhea Assessment/Plan: -Cdiff PCR,wbc+ culture negative -D/C colace Problems reviewed: Yes Code(s): R19.7 - DIARRHEA, UNSPECIFIED (3) Hypothyroid Assessment/Plan: -TSH elevated, FT4 Low, T3 total normal Problems reviewed: Yes Code(s): E03.9 - HYPOTHYROIDISM, UNSPECIFIED Assessment/Plan (1) UTI (urinary tract infection) Assessment/Plan: -ID on board -afebrile -no leukocytosis -IV abx - Ertapenem day #6 today, complete 7 days and d/c in AM -UC positive E.coli/ESBL -Contact isolation Code(s): N39.0 - URINARY TRACT INFECTION, SITE NOT SPECIFIED (2) Hypercalcemia Assessment/Plan: -Resolved -Renal on board -M-spike not observed -LC mildly elevated-not impressive at this time, repeat serum protein electrophoresis in 1 month Code(s): E83.52 - HYPERCALCEMIA (3) CKD (chronic kidney disease) Assessment/Plan: -Renal on board -monitor renal function daily -Renal US shows both kidneys are small and appear morphologically unremarkable, no gross renal stones or hydronephrosis, fatty infiltration of the liver vs hepatocellular disease Code(s): N18.9 - CHRONIC KIDNEY DISEASE, UNSPECIFIED (4) Respiratory failure with hypoxia and hypercapnia Assessment/Plan: -Pulmonary on board -mechanically ventilated -keep SpO2 >90% -Montelukast HS -Prednisone daily -PPI for GI ppx -Influenza neg -CXR shows prominent vascular structures at the bases with some questionable atelectasis at the left base -Trial of PMV-unable to tolerate -ENT consult appreciated -Speech therapy eval appreciated -MBS shows no aspiration -started on PO intake-dysphagia puree+ thin liquids+ glucerna BID-tolerating well -D/C tube feeds -May continue to use GT for meds. Code(s): J96.91 - RESPIRATORY FAILURE, UNSPECIFIED WITH HYPOXIA; J96.92 - RESPIRATORY FAILURE, UNSPECIFIED WITH HYPERCAPNIA (5) Nausea and vomiting Assessment/Plan: -CTAP shows somewhat atrophic R kidney, umbilical hernia containing non- obstructed small bowel loopsno gross evidence of acute pathology within abdomen or pelvis -no Zofran due to prolong QT -Abd US unremarkable -Reglan 5 mg BID Code(s): R11.2 - NAUSEA WITH VOMITING, UNSPECIFIED (6) Chest pain Assessment/Plan: -resolved -EKG reviewed NSR -Cardiology on board Code(s): R07.9 - CHEST PAIN, UNSPECIFIED (7) Anxiety Assessment/Plan: -Psychiatry consult -Klonopin BID Code(s): F41.9 - ANXIETY DISORDER, UNSPECIFIED (8) Paranoia Assessment/Plan: -psychiatry consult appreciated Code(s): F22 - DELUSIONAL DISORDERS (9) HTN (hypertension) Assessment/Plan: -Increased Metoprolol to 50 mg po BID -Continue Furosemide Code(s): I10 - ESSENTIAL (PRIMARY) HYPERTENSION (10) Diabetes mellitus Assessment/Plan: -BGM ACHS -Levemir BID-increase to 28 U QAM and 10 U HS -ISS -HgA1c 9.4% -Endocrinology consult appreciated Code(s): E11.9 - TYPE 2 DIABETES MELLITUS WITHOUT COMPLICATIONS (11) HLD (hyperlipidemia) Assessment/Plan: -Atorvastatin Code(s): E78.5 - HYPERLIPIDEMIA, UNSPECIFIED (12) Dizziness Assessment/Plan: -EKG-no changes -monitor BP Code(s): R42 - DIZZINESS AND GIDDINESS Assessment/Plan see problem list dvt ppx
[2019-05-23] MEDS ORDERED: DOCUSATE NA 100 MG/10 ML UNIT-DOSE CUPS PO SCH (15:55)
--- NOTE | 2019-05-23 16:02 | DS ---
Physical Examination Vital Signs: Vital Signs Temperature 99.0 F 05/23/19 09:30 Pulse Rate 80 05/23/19 09:30 Respiratory Rate 20 05/23/19 09:30 Blood Pressure 140/66 05/23/19 09:30 O2 Sat by Pulse Oximetry (%) 99 05/23/19 11:36 Findings/Remarks: This is a 73 year old female with PMH of complicated cardiac stent placement ( Dec 2018, developed sepsis 2/2 UTI, resp failure, was subsequently intubated currently on vent through trach and PEG tube placement), asthma, DM, HTN. She presented to the ER from [facility] due to nausea and vomiting and a dry cough for the past 10 days. She has had 1 episode per day of yellow vomiting. As per nursing staff, orange emesis was noticed today while trach suctioning. She has also had diarrhea, although she is on tube feeds and has watery diarrhea at baseline since PEG placement. No associated fevers, chills, dysuria, light headedness, chest pain. She is AOx3 at baseline, and was present at bedside to assist with history and examination. She has 40+ year history of asthma, and has frequently been on Prednisone PO on and off for several years. She developed back pain a few years ago, and subsequently developed 3 vertebral fractures, which was attributed to chronic steroid use. She was due to undergo surgery, but after imaging her surgeon stated that her osteoporosis was too advanced for any benefit from surgery (Dec 2018). Around the same time, she developed chronic SOB with chest discomfort. On further cardiac workup, she was found to have ACS, and underwent stent placement at [facility] [place]. Her recovery was complicated by sepsis 2/2 UTI, resp failure, and she was subsequently intubated for 3 weeks, after which tracheostomy was performed and a PEG tube was also placed. She was then transferred to [facility] for rehab. Patient was seen by ENT, Dr Jeff Fermin for pt's inability to use PMV who recommended: be sure cuff is deflated when using PMV If patient's respiratory status is stable, may consider change to a non-cuffed tube, OR change to a fenestrated trach tube, which would allow freer airflow through the fenestration during PMV use (inner cannula must be out with this scenario). (1) Anemia Assessment/Plan: -Iron % low -Started on Ferrous sulfate po daily -Stool OB negative -B12 normal -thyroid profile-hypothyroid -Seen by Endocrinology -FT4 low, T3 Tot normal -Hold transfusion unless Hg <7.0 to avoid fluid overload Problems reviewed: Yes Code(s): D64.9 - ANEMIA, UNSPECIFIED Qualifiers: Hemolytic anemia type: acquired, autoimmune, drug-induced (2) Diarrhea Assessment/Plan: -Cdiff PCR,wbc+ culture negative -D/C colace Problems reviewed: Yes Code(s): R19.7 - DIARRHEA, UNSPECIFIED (3) Hypothyroid Assessment/Plan: -TSH elevated, FT4 Low, T3 total normal Problems reviewed: Yes Code(s): E03.9 - HYPOTHYROIDISM, UNSPECIFIED Assessment/Plan (1) UTI (urinary tract infection) Assessment/Plan: -ID on board -afebrile -no leukocytosis -IV abx - Ertapenem day #6 today, complete 7 days and d/c in AM -UC positive E.coli/ESBL -Contact isolation Code(s): N39.0 - URINARY TRACT INFECTION, SITE NOT SPECIFIED (2) Hypercalcemia Assessment/Plan: -Resolved -Renal on board -M-spike not observed -LC mildly elevated-not impressive at this time, repeat serum protein electrophoresis in 1 month Code(s): E83.52 - HYPERCALCEMIA (3) CKD (chronic kidney disease) Assessment/Plan: -Renal on board -monitor renal function daily -Renal US shows both kidneys are small and appear morphologically unremarkable, no gross renal stones or hydronephrosis, fatty infiltration of the liver vs hepatocellular disease Code(s): N18.9 - CHRONIC KIDNEY DISEASE, UNSPECIFIED (4) Respiratory failure with hypoxia and hypercapnia Assessment/Plan: -Pulmonary on board -mechanically ventilated -keep SpO2 >90% -Montelukast HS -Prednisone daily -PPI for GI ppx -Influenza neg -CXR shows prominent vascular structures at the bases with some questionable atelectasis at the left base -Trial of PMV-unable to tolerate -ENT consult appreciated -Speech therapy eval appreciated -MBS shows no aspiration -started on PO intake-dysphagia puree+ thin liquids+ glucerna BID-tolerating well -D/C tube feeds -May continue to use GT for meds. Code(s): J96.91 - RESPIRATORY FAILURE, UNSPECIFIED WITH HYPOXIA; J96.92 - RESPIRATORY FAILURE, UNSPECIFIED WITH HYPERCAPNIA (5) Nausea and vomiting Assessment/Plan: -CTAP shows somewhat atrophic R kidney, umbilical hernia containing non- obstructed small bowel loopsno gross evidence of acute pathology within abdomen or pelvis -no Zofran due to prolong QT -Abd US unremarkable -Reglan 5 mg BID Code(s): R11.2 - NAUSEA WITH VOMITING, UNSPECIFIED (6) Chest pain Assessment/Plan: -resolved -EKG reviewed NSR -Cardiology on board Code(s): R07.9 - CHEST PAIN, UNSPECIFIED (7) Anxiety Assessment/Plan: -Psychiatry consult -Klonopin BID Code(s): F41.9 - ANXIETY DISORDER, UNSPECIFIED (8) Paranoia Assessment/Plan: -psychiatry consult appreciated Code(s): F22 - DELUSIONAL DISORDERS (9) HTN (hypertension) Assessment/Plan: -Increased Metoprolol to 50 mg po BID -Continue Furosemide Code(s): I10 - ESSENTIAL (PRIMARY) HYPERTENSION (10) Diabetes mellitus Assessment/Plan: -BGM ACHS -Levemir BID-increase to 28 U QAM and 10 U HS -ISS -HgA1c 9.4% -Endocrinology consult appreciated Code(s): E11.9 - TYPE 2 DIABETES MELLITUS WITHOUT COMPLICATIONS (11) HLD (hyperlipidemia) Assessment/Plan: -Atorvastatin Code(s): E78.5 - HYPERLIPIDEMIA, UNSPECIFIED (12) Dizziness Assessment/Plan: -EKG-no changes -monitor BP Code(s): R42 - DIZZINESS AND GIDDINESS Assessment/Plan see problem list dvt ppx Constitutional: Yes: Well Nourished, No Distress, Calm Cardiovascular: Yes: Regular Rate and Rhythm Respiratory: Yes: Regular, Rhonchi (diffuse), Other (trach collar) Gastrointestinal: Yes: Normal Bowel Sounds, Soft Musculoskeletal: Yes: Muscle Weakness Extremities: Yes: WNL Edema: No Peripheral Pulses WNL: Yes Neurological: Yes: Alert, Oriented Psychiatric: Yes: Alert, Oriented Labs: CBC, BMP 05/19/19 07:03 05/23/19 06:00 Discharge Summary Problems reviewed: Yes Reason For Visit: ACUTE VOMITING, HYPERCALCEMIA Current Active Problems Acute vomiting (Acute) Anemia (Acute) Anxiety (Acute) CKD (chronic kidney disease) (Acute) Chest pain (Acute) Diabetes mellitus (Acute) Diarrhea (Acute) Dizziness (Acute) HLD (hyperlipidemia) (Acute) HTN (hypertension) (Acute) Hypercalcemia (Acute) Hypothyroid (Acute) Hypothyroidism (acquired) (Acute) Nausea and vomiting (Acute) Other speech disturbances (Acute) Paranoia (Acute) Respiratory failure with hypoxia and hypercapnia (Acute) Tracheostomy status (Acute) UTI (urinary tract infection) (Acute) Laboratory Last Values WBC 10.5 K/mm3 (4.0-10.0) H 05/19/19 07:03 RBC 3.76 M/mm3 (3.60-5.2) 05/19/19 07:03 Hgb 9.5 GM/dL (10.7-15.3) L 05/19/19 07:03 Hct 29.3 % (32.4-45.2) L 05/19/19 07:03 MCV 77.8 fl (80-96) L 05/19/19 07:03 MCH 25.4 pg (25.7-33.7) L 05/19/19 07:03 MCHC 32.6 g/dl (32.0-36.0) 05/19/19 07:03 RDW 16.6 % (11.6-15.6) H 05/19/19 07:03 Plt Count 367 K/MM3 (134-434) 05/19/19 07:03 MPV 9.1 fl (7.5-11.1) 05/19/19 07:03 Absolute Neuts (auto) 7.6 K/mm3 (1.5-8.0) 05/19/19 07:03 Neutrophils % 72.7 % (42.8-82.8) 05/19/19 07:03 Lymphocytes % 17.3 % (8-40) D 05/19/19 07:03 Monocytes % 9.0 % (3.8-10.2) 05/19/19 07:03 Eosinophils % 0.6 % (0-4.5) D 05/19/19 07:03 Basophils % 0.4 % (0-2.0) 05/19/19 07:03 Nucleated RBC % 0 % (0-0) 05/19/19 07:03 PT with INR 11.80 SEC (9.7-13.0) 05/13/19 18:45 INR 1.00 (0.83-1.09) 05/13/19 18:45 PTT (Actin FS) 36.2 SECONDS (25.2-36.5) 05/13/19 18:45 Sodium 139 mmol/L (136-145) 05/23/19 06:00 Potassium 4.1 mmol/L (3.5-5.1) 05/23/19 06:00 Chloride 106 mmol/L (98-107) 05/23/19 06:00 Carbon Dioxide 23 mmol/L (21-32) 05/23/19 06:00 Anion Gap 10 MMOL/L (8-16) 05/23/19 06:00 BUN 32.4 mg/dL (7-18) H 05/23/19 06:00 Creatinine 0.9 mg/dL (0.55-1.3) 05/23/19 06:00 Est GFR (CKD-EPI)AfAm 73.52 05/23/19 06:00 Est GFR (CKD-EPI)NonAf 63.43 05/23/19 06:00 POC Glucometer 158 UNITS (80-120) 05/23/19 11:52 Random Glucose 130 mg/dL (74-106) H 05/23/19 06:00 Hemoglobin A1c % 9.4 % (4.2-6.3) H 05/17/19 07:40 Calcium 10.1 mg/dL (8.5-10.1) 05/23/19 06:00 Ionized Calcium 6.1 mg/dL (4.5-5.6) H 05/20/19 08:20 Magnesium 2.2 mg/dL (1.8-2.4) 05/19/19 07:03 Iron 30 ug/dL (50-175) L 05/14/19 05:51 TIBC 255 ug/dL (250-450) 05/14/19 05:51 Iron Saturation 11 % (17.5-39) L 05/14/19 05:51 Unsaturated IBC 225 ug/dL (200-275) 05/14/19 05:51 Total Bilirubin 0.6 mg/dL (0.2-1) 05/23/19 06:00 AST 15 U/L (15-37) 05/23/19 06:00 ALT 18 U/L (13-61) 05/23/19 06:00 Alkaline Phosphatase 109 U/L (45-117) 05/23/19 06:00 Creatine Kinase 62 U/L (26-192) 05/13/19 18:45 Troponin I 0.03 ng/ml (0.00-0.05) 05/13/19 18:45 Total Protein 7.5 g/dl (6.4-8.2) 05/23/19 06:00 Total Protein (PEP) 6.5 g/dL (6.0-8.5) 05/14/19 05:51 Albumin 3.6 g/dl (3.4-5.0) 05/23/19 06:00 Albumin (PEP) 3.0 gm/dl (2.9-4.4) 05/14/19 05:51 Globulin 3.5 g/dL (2.2-3.9) 05/14/19 05:51 Albumin/Globulin Ratio 0.9 (0.7-1.7) 05/14/19 05:51 Beta Globulins 1.0 gm/dL (0.7-1.3) 05/14/19 05:51 Lipase 63 U/L (73-393) L 05/13/19 18:45 Vitamin B12 1154 pg/ml (193-986) H 05/19/19 07:03 Vitamin D Level 32.5 ng/mL (30-100) 05/21/19 12:00 TSH 5.10 uIU/ml (0.358-3.74) H 05/20/19 08:20 Free T4 1.55 ng/dl (0.76-1.46) H 05/19/19 07:03 Total T3 76.00 ng/dl (71-180) 05/21/19 07:25 PTH Intact 10 pg/mL (15-65) L 05/14/19 05:51 PTH Intact Intraop 0 m (.) 05/14/19 05:51 Urine Color Yellow 05/13/19 22:40 Urine Appearance Turbid 05/13/19 22:40 Urine pH 6.5 (5.0-8.0) 05/13/19 22:40 Ur Specific Bogard 1.013 (1.010-1.035) 05/13/19 22:40 Urine Protein 2+ (NEGATIVE) H 05/13/19 22:40 Urine Glucose (UA) Negative (NEGATIVE) 05/13/19 22:40 Urine Ketones Negative (NEGATIVE) 05/13/19 22:40 Urine Blood 3+ (NEGATIVE) H 05/13/19 22:40 Urine Nitrite Negative (NEGATIVE) 05/13/19 22:40 Urine Bilirubin Negative (NEGATIVE) 05/13/19 22:40 Urine Urobilinogen 1.0 mg/dL (0.2-1.0) 05/13/19 22:40 Ur Leukocyte Esterase 3+ (NEGATIVE) H 05/13/19 22:40 Urine WBC (Auto) 648.5 /hpf (0-5) 05/13/19 22:40 Urine RBC (Auto) 0.4 /hpf (0-4) 05/13/19 22:40 Urine Casts (Auto) 1076.77 /lpf (0-8) 05/13/19 22:40 U Pathogenic Cast Auto None seen /lpf (NEGATIVE) 05/13/19 22:40 U Epithel Cells (Auto) 65.5 /HPF (0-5/HPF) 05/13/19 22:40 Urine Bacteria (Auto) 903.7 /hpf (NEGATIVE) 05/13/19 22:40 Stool Occult Blood Negative (NEGATIVE) 05/15/19 02:20 AVA M-Moe Not observed g/dL (Not Observed) 05/14/19 05:51 Free Rule LC, Quant 75.4 mg/L (3.3-19.4) H 05/16/19 08:15 Free Lambda LC, Quant 38.1 mg/L (5.7-26.3) H 05/16/19 08:15 Free Rule/Lambda Ratio 1.98 (0.26-1.65) H 05/16/19 08:15 Influenza A (Rapid) Negative (Negative) 05/13/19 19:30 Influenza B (Rapid) Negative (Negative) 05/13/19 19:30 Microbiology 05/20/19 14:59 Stool Clostridioides difficile Antigen - Final 05/20/19 14:59 Stool Clostridioides difficile Toxin Assay - Final 05/19/19 17:00 Stool Gram Stain - Final 05/15/19 02:20 Blood - Peripheral Venous Blood Culture - Final NO GROWTH AFTER 5 DAYS INCUBATION 05/15/19 02:20 Blood - Peripheral Venous Blood Culture - Final NO GROWTH AFTER 5 DAYS INCUBATION 05/13/19 22:40 Urine - Urine Clean Catch Urine Culture - Final Escherichia Coli Esbl Physician Pediatrician Vital Signs Temp 99.0 F 05/23/19 09:30 Pulse 88 05/23/19 16:13 Resp 20 05/23/19 09:30 BP 140/66 05/23/19 09:30 Pulse Ox 100 05/23/19 16:13 Intake & Output 05/22/19 05/23/19 05/23/19 23:59 11:59 23:59 Intake Total 125 900 100 Output Total 300 Balance -175 900 100 Intake: IV 900 100 1/2 Normal Saline 1,000 900 100 ml @ 75 mls/hr IV ASDIR CHIQUITA Rx#:[id number] Oral 125 Output: Urine 300 External Catheter 300 Other: Voiding Method External Catheter External Catheter # Unmeasured Voids Void 2 2 Bowel Movement Yes Yes # Bowel Movements 2 2 Condition: Stable - Instructions Diet, Activity, Other Instructions: Bactrim DS 1 tab BID x 7 days Repeat SPEP in 1 month Keep patient vitamin D and calcium off If elevation in Calcium in 1 month, then may consider Bone scan and or chest CT to r/o any malignancy Disposition: CUSTODIAL FACILITY - Home Medications Comprehensive Discharge Medication List: Ambulatory Orders Acetaminophen Oral Solution [Tylenol Oral Solution -] 650 mg PO Q6H PRN soln.oral 05/20/19 Albuterol 2.5/Ipratropium 0.5 [Duoneb -] 1 amp NEB RQ4H amp 05/20/19 Aspirin [ASA -] 81 mg GT DAILY tab.chew 05/20/19 Atorvastatin Ca [Lipitor] 80 mg GT HS tablet 05/20/19 Cholecalciferol (Vitamin D3) [Vitamin D3 -] 1,000 unit GT DAILY tab 05/20/19 Docusate Liquid [Colace Liquid -] 300 mg PO DAILY ud 05/20/19 Famotidine [Pepcid] 20 mg PO BID oral.susp 05/20/19 Famotidine [Pepcid] 20 mg PO BID oral.susp 05/20/19 Ferrous Sulfate [Feosol] 300 mg GT DAILY udc 05/20/19 Furosemide Oral Solution [Lasix Oral Solution -] 40 mg GT DAILY udc 05/20/19 Heparin - 5,000 unit SQ BID vial 05/20/19 Insulin (Levemir) [Levemir Vial] 10 units SQ HS units 05/20/19 Insulin (Levemir) [Levemir Vial] 22 units SQ AM units 05/20/19 Insulin Sliding Scale [Novolog Vial Sliding Scale -] 1 vial SQ ACHS units 05/20 Loratadine [Claritin -] 10 mg PO DAILY tablet 05/20/19 Metoclopramide Oral Soln [Reglan Oral Solution -] 5 mg GT BID udc 05/20/19 Metoprolol Tartrate [Lopressor -] 50 mg GT BID tablet 05/20/19 Montelukast Na [Singulair -] 10 mg GT HS tablet 05/20/19 Pantoprazole Suspension [Protonix Packets For Oral Suspension -] 40 mg PEG DAILY packet 05/20/19 Potassium Chloride [Potassium Chloride Oral Liquid] 40 meq PO BID cup 05/20/19 Sodium Chloride Inhalation [Normal Saline For Inhalation -] 3 ml IH Q6H PRN vial.neb 05/20/19 Zinc Oxide 1 applic TP BID tube 05/20/19 clonazePAM [Klonopin -] 0.5 mg GT Q12H #60 tablet MDD 2 05/20/19 predniSONE [Deltasone -] 20 mg GT DAILY #0 tablet 05/20/19 Prescription Drug Monitoring Program (I-STOP) results: I-STOP reviewed and no issues identified
--- NOTE | 2019-05-23 16:52 | PN ---
Progress Note, Physician History of Present Illness: Pt seen and examined at bedside. She appears comfortable. - Current Medication List Current Medications: Active Medications Acetaminophen (Tylenol Oral Solution -) 650 mg PO Q6H PRN PRN Reason: PAIN LEVEL 1-5 Last Admin: 05/21/19 11:23 Dose: 650 mg Albuterol/Ipratropium (Duoneb -) 1 amp NEB RQ4H [facility] Last Admin: 05/23/19 16:13 Dose: 1 amp Ascorbic Acid (Vitamin C Oral Solution -) 500 mg GT DAILY [facility] Last Admin: 05/23/19 11:38 Dose: 500 mg Aspirin (Asa -) 81 mg GT DAILY [facility] Last Admin: 05/23/19 11:32 Dose: 81 mg Atorvastatin Calcium (Lipitor -) 80 mg GT HS [facility] Last Admin: 05/22/19 23:28 Dose: 80 mg Clonazepam (Klonopin -) 0.5 mg GT Q12H [facility] Last Admin: 05/23/19 11:40 Dose: 0.5 mg Famotidine (Pepcid) 20 mg PO BID [facility] Last Admin: 05/23/19 11:37 Dose: 20 mg Ferrous Sulfate (Feosol) 300 mg GT DAILY [facility] Last Admin: 05/23/19 11:32 Dose: 300 mg Furosemide (Lasix Oral Solution -) 40 mg GT DAILY [facility] Last Admin: 05/23/19 11:37 Dose: 40 mg Haloperidol (Haldol Injection (Fast Acting) -) 2 mg IM Q4H PRN PRN Reason: AGITATION Heparin Sodium (Porcine) (Heparin -) 5,000 unit SQ BID [facility] Last Admin: 05/23/19 11:39 Dose: 5,000 unit Ertapenem 1 gm/ Sodium (Chloride) 50 mls @ 100 mls/hr IVPB DAILY [facility] Last Admin: 05/23/19 11:34 Dose: 100 mls/hr Insulin Aspart (Novolog Vial Sliding Scale -) 1 vial SQ [facility]; Protocol Last Admin: 05/23/19 11:59 Dose: Not Given Insulin Detemir (Levemir Vial) 10 units SQ HS [facility] Last Admin: 05/22/19 23:28 Dose: 10 units Insulin Detemir (Levemir Vial) 28 units SQ AM [facility] Last Admin: 05/23/19 06:54 Dose: 28 units Loratadine (Claritin -) 10 mg PO DAILY [facility] Last Admin: 05/23/19 11:40 Dose: 10 mg Metoclopramide HCl (Reglan Oral Solution -) 5 mg GT BID [facility] Last Admin: 05/23/19 11:38 Dose: 5 mg Metoprolol Tartrate (Lopressor -) 50 mg GT BID [facility] Last Admin: 05/23/19 11:40 Dose: 50 mg Montelukast Sodium (Singulair -) 10 mg GT HS [facility] Last Admin: 05/22/19 23:32 Dose: 10 mg Multi-Ingredient Ointment (Zinc Oxide) 1 applic TP BID [facility] Last Admin: 05/23/19 11:58 Dose: 1 applic Pantoprazole Sodium (Protonix Packets For Oral Suspension -) 40 mg PEG DAILY [facility] Last Admin: 05/23/19 11:38 Dose: 40 mg Potassium Chloride (Potassium Chloride Oral Liquid) 40 meq PO BID [facility] Last Admin: 05/23/19 11:32 Dose: 40 meq Prednisone (Deltasone -) 20 mg GT DAILY [facility] Last Admin: 05/23/19 11:40 Dose: 20 mg Sodium Chloride (Normal Saline For Inhalation -) 3 ml IH Q6H PRN PRN Reason: COUGH - Objective Vital Signs: Vital Signs Temperature 99.0 F 05/23/19 13:00 Pulse Rate 88 05/23/19 16:13 Respiratory Rate 20 05/23/19 13:00 Blood Pressure 122/53 L 05/23/19 13:00 O2 Sat by Pulse Oximetry (%) 100 05/23/19 16:13 Constitutional: Yes: Calm Eyes: Yes: Conjunctiva Clear HENT: Yes: Atraumatic Neck: Yes: Other (trache) Cardiovascular: Yes: S1, S2 Respiratory: Yes: Other (on trache collar) Gastrointestinal: Yes: Soft, Other (peg) Musculoskeletal: Yes: Other Edema: No Integumentary: Yes: WNL Neurological: Yes: Other (awake) Labs: CBC, BMP 05/19/19 07:03 05/23/19 06:00 INR, PTT INR 1.00 (0.83-1.09) 05/13/19 18:45 Problem List - Problems (1) CKD (chronic kidney disease) Code(s): N18.9 - CHRONIC KIDNEY DISEASE, UNSPECIFIED (2) Hypercalcemia Code(s): E83.52 - HYPERCALCEMIA Assessment/Plan Current Medications Generic Name Dose Route Start Last Admin Trade Name Vipulq PRN Reason Stop Dose Admin Acetaminophen 650 mg 05/14/19 20:44 05/21/19 11:23 Tylenol Oral Solution - PO 650 mg Q6H PRN Administration PAIN LEVEL 1-5 Albuterol/Ipratropium 1 amp 05/15/19 00:00 05/23/19 16:13 Duoneb - NEB 1 amp RQ4H [facility] Administration Ascorbic Acid 500 mg 05/15/19 10:00 05/23/19 11:38 Vitamin C Oral Solution - GT 500 mg DAILY [facility] Administration Aspirin 81 mg 05/15/19 10:00 05/23/19 11:32 Asa - GT 81 mg DAILY [facility] Administration Atorvastatin Calcium 80 mg 05/14/19 22:00 05/22/19 23:28 Lipitor - GT 80 mg HS [facility] Administration Clonazepam 0.5 mg 05/15/19 00:00 05/23/19 11:40 Klonopin - GT 0.5 mg Q12H [facility] Administration Famotidine 20 mg 05/18/19 11:30 05/23/19 11:37 Pepcid PO 20 mg BID [facility] Administration Ferrous Sulfate 300 mg 05/15/19 10:00 05/23/19 11:32 Feosol GT 300 mg DAILY [facility] Administration Furosemide 40 mg 05/15/19 10:00 05/23/19 11:37 Lasix Oral Solution - GT 40 mg DAILY [facility] Administration Haloperidol 2 mg 05/15/19 11:32 Haldol Injection (Fast Acting) - IM Q4H PRN AGITATION Heparin Sodium (Porcine) 5,000 unit 05/14/19 22:00 05/23/19 11:39 Heparin - SQ 5,000 unit BID [facility] Administration Ertapenem 1 gm/ Sodium 50 mls @ 100 mls/hr 05/18/19 15:30 05/23/19 11:34 Chloride IVPB 100 mls/hr DAILY [facility] Administration Insulin Aspart 1 vial 05/20/19 07:00 05/23/19 11:59 Novolog Vial Sliding Scale - SQ Not Given ACHS [facility] Protocol Insulin Detemir 10 units 05/20/19 22:00 05/22/19 23:28 Levemir Vial SQ 10 units HS [facility] Administration Insulin Detemir 28 units 05/22/19 07:00 05/23/19 06:54 Levemir Vial SQ 28 units AM [facility] Administration Loratadine 10 mg 05/19/19 15:00 05/23/19 11:40 Claritin - PO 10 mg DAILY [facility] Administration Metoclopramide HCl 5 mg 05/19/19 22:00 05/23/19 11:38 Reglan Oral Solution - GT 5 mg BID [facility] Administration Metoprolol Tartrate 50 mg 05/19/19 11:45 05/23/19 11:40 Lopressor - GT 50 mg BID [facility] Administration Montelukast Sodium 10 mg 05/14/19 22:00 05/22/19 23:32 Singulair - GT 10 mg HS [facility] Administration Multi-Ingredient Ointment 1 applic 05/14/19 22:00 05/23/19 11:58 Zinc Oxide TP 1 applic BID [facility] Administration Pantoprazole Sodium 40 mg 05/19/19 10:45 05/23/19 11:38 Protonix Packets For Oral Suspension - PEG 40 mg DAILY [facility] Administration Potassium Chloride 40 meq 05/18/19 17:43 05/23/19 11:32 Potassium Chloride Oral Liquid PO 40 meq BID [facility] Administration Prednisone 20 mg 05/15/19 10:00 05/23/19 11:40 Deltasone - GT 20 mg DAILY [facility] Administration Sodium Chloride 3 ml 05/18/19 23:56 Normal Saline For Inhalation - IH Q6H PRN COUGH Impression 1. hypercalcemia 2. DM 3. HTN 4. asthma 5. chronic resp failure 6. azotemia Plan - calcium improving - pt off of vit d - monitor calcium levels - oncology followup
[2019-05-23] MEDS: ATORVASTATIN CA 80 MG TABLET (FP) GT SCH (22:33)
[2019-05-23] MEDS: MONTELUKAST NA 10 MG TABLET GT SCH (22:33)
[2019-05-24] MEDS: ALBUTEROL SO4 2.5/IPRATROPIUM 0.5 INH SOL 3 ML VIAL.NEB. NEB SCH ×6 (00:30→20:14)
[2019-05-24] MEDS: INSULIN SLIDING SCALE (NOVOLOG) 1 VIAL SQ SCH ×4 (06:24→22:54)
[2019-05-24] MEDS: INSULIN (LEVEMIR) 100 UNITS/ML UNITS SQ SCH ×2 (07:00→22:56)
[2019-05-24 08:59] LABS: ALBUMIN 3.6 g/dl (3.4-5.0); BILIRUBIN,TOTAL 0.5 mg/dL (0.2-1); BLOOD UREA NITROGEN 34.9 mg/dL (7-18); CALCIUM 10.4 mg/dL (8.5-10.1); CREATININE 0.9 mg/dL (0.55-1.3); POTASSIUM 4.3 mmol/L (3.5-5.1); TOT PROT 7.8 g/dl (6.4-8.2)
[2019-05-24] MEDS: ASPIRIN 81 MG CHEWABLE TABLETS GT SCH (10:03)
[2019-05-24] MEDS: HEPARIN NA (PORCINE) 5,000 UNITS/ML 1ML VIAL SQ SCH ×2 (10:03→22:53)
[2019-05-24] MEDS: METOPROLOL TARTRATE 50 MG TABLET (FP) GT SCH ×2 (10:03→22:53)
[2019-05-24] MEDS: PANTOPRAZOLE SOD 40 MG SUSPENSION PACKET PEG SCH (10:03)
[2019-05-24] MEDS: predniSONE 20 MG TABLET (UD) GT SCH (10:03)
[2019-05-24] MEDS: LORATADINE 10 MG TABLET PO SCH (10:03)
[2019-05-24] MEDS: POTASSIUM CHLORIDE ORAL LIQUID 20 MEQ/15 ML PO SCH ×2 (10:04→22:53)
[2019-05-24] MEDS: METOCLOPRAMIDE HCL 5 MG/5 ML UNIT DOSE CUP GT SCH ×2 (10:04→22:53)
[2019-05-24] MEDS: FERROUS SO4 300 MG/5 ML ORAL SOLN UNIT DOSE CUPS GT SCH (10:05)
[2019-05-24] MEDS: ASCORBIC ACID 500 MG/5 ML UNIT DOSE CUP GT SCH (10:06)
[2019-05-24] MEDS: FAMOTIDINE 40 MG/5 ML ORAL SUSPENSION PO SCH ×2 (10:08→22:54)
[2019-05-24] MEDS: ERTAPENEM SODIUM 1 GM in SODIUM CHLORIDE 50 ML IVPB SCH (10:10)
[2019-05-24] MEDS: FUROSEMIDE 40 MG/5 ML UNIT-DOSE CUP GT SCH (10:11)
[2019-05-24] MEDS: ZINC OXIDE 20% TOPICAL OINTMENT 30 GM TUBE TP SCH ×2 (10:12→22:56)
[2019-05-24] MEDS: clonazePAM 0.5 MG TABLET GT SCH ×2 (11:58→22:59)
--- NOTE | 2019-05-24 12:25 | PN ---
Progress Note, Physician Chief Complaint: UTI Hypercalcemia Nausea/Vomiting History of Present Illness: NAD Denies any pain,N/V/D On trach collar right now-tolerating well Was unable to tolerate PMV with speech therapy. As per NH, pt tolerates PMV occasionally, and sometime does have hard time breathing on it. No more blood secretions Cdiff negative BP improved on metoprolol 50 mg BID Awaiting discharge back to [facility] - Current Medication List Current Medications: Active Medications Acetaminophen (Tylenol Oral Solution -) 650 mg PO Q6H PRN PRN Reason: PAIN LEVEL 1-5 Last Admin: 05/21/19 11:23 Dose: 650 mg Albuterol/Ipratropium (Duoneb -) 1 amp NEB RQ4H [facility] Last Admin: 05/24/19 11:42 Dose: 1 amp Ascorbic Acid (Vitamin C Oral Solution -) 500 mg GT DAILY [facility] Last Admin: 05/24/19 10:06 Dose: 500 mg Aspirin (Asa -) 81 mg GT DAILY [facility] Last Admin: 05/24/19 10:03 Dose: 81 mg Atorvastatin Calcium (Lipitor -) 80 mg GT HS [facility] Last Admin: 05/23/19 22:33 Dose: 80 mg Clonazepam (Klonopin -) 0.5 mg GT Q12H [facility] Last Admin: 05/24/19 11:58 Dose: 0.5 mg Famotidine (Pepcid) 20 mg PO BID [facility] Last Admin: 05/24/19 10:08 Dose: 20 mg Ferrous Sulfate (Feosol) 300 mg GT DAILY [facility] Last Admin: 05/24/19 10:05 Dose: 300 mg Furosemide (Lasix Oral Solution -) 40 mg GT DAILY [facility] Last Admin: 05/24/19 10:11 Dose: 40 mg Haloperidol (Haldol Injection (Fast Acting) -) 2 mg IM Q4H PRN PRN Reason: AGITATION Heparin Sodium (Porcine) (Heparin -) 5,000 unit SQ BID [facility] Last Admin: 05/24/19 10:03 Dose: 5,000 unit Insulin Aspart (Novolog Vial Sliding Scale -) 1 vial SQ [facility]; Protocol Last Admin: 05/24/19 06:24 Dose: Not Given Insulin Detemir (Levemir Vial) 10 units SQ [facility] Last Admin: 05/23/19 22:33 Dose: 10 units Insulin Detemir (Levemir Vial) 28 units SQ AM [facility] Last Admin: 05/24/19 07:00 Dose: 28 units Loratadine (Claritin -) 10 mg PO DAILY [facility] Last Admin: 05/24/19 10:03 Dose: 10 mg Metoclopramide HCl (Reglan Oral Solution -) 5 mg GT BID [facility] Last Admin: 05/24/19 10:04 Dose: 5 mg Metoprolol Tartrate (Lopressor -) 50 mg GT BID [facility] Last Admin: 05/24/19 10:03 Dose: 50 mg Montelukast Sodium (Singulair -) 10 mg GT HS [facility] Last Admin: 05/23/19 22:33 Dose: 10 mg Multi-Ingredient Ointment (Zinc Oxide) 1 applic TP BID [facility] Last Admin: 05/24/19 10:12 Dose: 1 applic Pantoprazole Sodium (Protonix Packets For Oral Suspension -) 40 mg PEG DAILY [facility] Last Admin: 05/24/19 10:03 Dose: 40 mg Potassium Chloride (Potassium Chloride Oral Liquid) 40 meq PO BID [facility] Last Admin: 05/24/19 10:04 Dose: 40 meq Prednisone (Deltasone -) 20 mg GT DAILY [facility] Last Admin: 05/24/19 10:03 Dose: 20 mg Sodium Chloride (Normal Saline For Inhalation -) 3 ml IH Q6H PRN PRN Reason: COUGH - Objective Vital Signs: Vital Signs Temperature 97.6 F 05/24/19 06:00 Pulse Rate 69 05/24/19 08:15 Respiratory Rate 20 05/24/19 06:00 Blood Pressure 130/72 05/24/19 06:00 O2 Sat by Pulse Oximetry (%) 98 05/24/19 08:15 Constitutional: Yes: Well Nourished, No Distress, Calm Cardiovascular: Yes: Regular Rate and Rhythm Respiratory: Yes: Regular, CTA Bilaterally, Diminished (BLL), Other (Trach collar) Gastrointestinal: Yes: WNL, Normal Bowel Sounds, Soft, Abdomen, Obese Musculoskeletal: Yes: Muscle Weakness Extremities: Yes: WNL Edema: No Peripheral Pulses WNL: Yes Neurological: Yes: Alert, Oriented Psychiatric: Yes: Alert, Oriented Labs: CBC, BMP 05/19/19 07:03 05/24/19 07:23 INR, PTT INR 1.00 (0.83-1.09) 05/13/19 18:45 Problem List - Problems (1) Anemia Assessment/Plan: -Iron % low -Started on Ferrous sulfate po daily -Stool OB negative -B12 normal -thyroid profile-hypothyroid -Seen by Endocrinology -FT4 low, T3 Tot normal -Hold transfusion unless Hg <7.0 to avoid fluid overload Problems reviewed: Yes Code(s): D64.9 - ANEMIA, UNSPECIFIED Qualifiers: Hemolytic anemia type: acquired, autoimmune, drug-induced (2) Diarrhea Assessment/Plan: -Cdiff PCR,wbc+ culture negative -D/C colace -Lactose intolerant as per , will make dietary changes Problems reviewed: Yes Code(s): R19.7 - DIARRHEA, UNSPECIFIED (3) Hypothyroid Assessment/Plan: -TSH elevated, FT4 Low, T3 total normal Problems reviewed: Yes Code(s): E03.9 - HYPOTHYROIDISM, UNSPECIFIED Assessment/Plan (1) UTI (urinary tract infection) Assessment/Plan: -ID on board -afebrile -no leukocytosis -IV abx - Ertapenem day #6 today, complete 7 days and d/c in AM -UC positive E.coli/ESBL -Contact isolation Code(s): N39.0 - URINARY TRACT INFECTION, SITE NOT SPECIFIED (2) Hypercalcemia Assessment/Plan: -Resolved -Renal on board -M-spike not observed -LC mildly elevated-not impressive at this time, repeat serum protein electrophoresis in 1 month Code(s): E83.52 - HYPERCALCEMIA (3) CKD (chronic kidney disease) Assessment/Plan: -Renal on board -monitor renal function daily -Renal US shows both kidneys are small and appear morphologically unremarkable, no gross renal stones or hydronephrosis, fatty infiltration of the liver vs hepatocellular disease Code(s): N18.9 - CHRONIC KIDNEY DISEASE, UNSPECIFIED (4) Respiratory failure with hypoxia and hypercapnia Assessment/Plan: -Pulmonary on board -mechanically ventilated -keep SpO2 >90% -Montelukast HS -Prednisone daily -PPI for GI ppx -Influenza neg -CXR shows prominent vascular structures at the bases with some questionable atelectasis at the left base -Trial of PMV-unable to tolerate -ENT consult appreciated -Speech therapy eval appreciated -MBS shows no aspiration -started on PO intake-dysphagia puree+ thin liquids+ glucerna BID-tolerating well -Tube feeds discontinued -May continue to use GT for meds. Code(s): J96.91 - RESPIRATORY FAILURE, UNSPECIFIED WITH HYPOXIA; J96.92 - RESPIRATORY FAILURE, UNSPECIFIED WITH HYPERCAPNIA (5) Nausea and vomiting Assessment/Plan: -CTAP shows somewhat atrophic R kidney, umbilical hernia containing non- obstructed small bowel loopsno gross evidence of acute pathology within abdomen or pelvis -no Zofran due to prolong QT -Abd US unremarkable -Reglan 5 mg BID Code(s): R11.2 - NAUSEA WITH VOMITING, UNSPECIFIED (6) Chest pain Assessment/Plan: -resolved -EKG reviewed NSR -Cardiology on board Code(s): R07.9 - CHEST PAIN, UNSPECIFIED (7) Anxiety Assessment/Plan: -Psychiatry consult -Klonopin BID Code(s): F41.9 - ANXIETY DISORDER, UNSPECIFIED (8) Paranoia Assessment/Plan: -psychiatry consult appreciated Code(s): F22 - DELUSIONAL DISORDERS (9) HTN (hypertension) Assessment/Plan: -Increased Metoprolol to 50 mg po BID -Continue Furosemide Code(s): I10 - ESSENTIAL (PRIMARY) HYPERTENSION (10) Diabetes mellitus Assessment/Plan: -BGM ACHS -Levemir BID-increase to 28 U QAM and 10 U HS -ISS -HgA1c 9.4% -Endocrinology consult appreciated Code(s): E11.9 - TYPE 2 DIABETES MELLITUS WITHOUT COMPLICATIONS (11) HLD (hyperlipidemia) Assessment/Plan: -Atorvastatin Code(s): E78.5 - HYPERLIPIDEMIA, UNSPECIFIED (12) Dizziness Assessment/Plan: -EKG-no changes -monitor BP Code(s): R42 - DIZZINESS AND GIDDINESS Assessment/Plan see problem list dvt ppx D/C in AM when bed available
[2019-05-24] MEDS: ACETAMINOPHEN 650 MG/20.3 ML ORAL SOLUTION (CUPS) PO PRN (17:38)
--- NOTE | 2019-05-24 18:21 | PN ---
Progress Note, Physician History of Present Illness: Pt seen and examined at bedside. She is awake and appears comfortable. - Current Medication List Current Medications: Active Medications Acetaminophen (Tylenol Oral Solution -) 650 mg PO Q6H PRN PRN Reason: PAIN LEVEL 1-5 Last Admin: 05/24/19 17:38 Dose: 650 mg Albuterol/Ipratropium (Duoneb -) 1 amp NEB RQ4H [facility] Last Admin: 05/24/19 16:15 Dose: 1 amp Ascorbic Acid (Vitamin C Oral Solution -) 500 mg GT DAILY [facility] Last Admin: 05/24/19 10:06 Dose: 500 mg Aspirin (Asa -) 81 mg GT DAILY [facility] Last Admin: 05/24/19 10:03 Dose: 81 mg Atorvastatin Calcium (Lipitor -) 80 mg GT HS [facility] Last Admin: 05/23/19 22:33 Dose: 80 mg Clonazepam (Klonopin -) 0.5 mg GT Q12H [facility] Last Admin: 05/24/19 11:58 Dose: 0.5 mg Famotidine (Pepcid) 20 mg PO BID [facility] Last Admin: 05/24/19 10:08 Dose: 20 mg Ferrous Sulfate (Feosol) 300 mg GT DAILY [facility] Last Admin: 05/24/19 10:05 Dose: 300 mg Furosemide (Lasix Oral Solution -) 40 mg GT DAILY [facility] Last Admin: 05/24/19 10:11 Dose: 40 mg Haloperidol (Haldol Injection (Fast Acting) -) 2 mg IM Q4H PRN PRN Reason: AGITATION Heparin Sodium (Porcine) (Heparin -) 5,000 unit SQ BID [facility] Last Admin: 05/24/19 10:03 Dose: 5,000 unit Insulin Aspart (Novolog Vial Sliding Scale -) 1 vial SQ [facility]; Protocol Last Admin: 05/24/19 17:58 Dose: 6 units Insulin Detemir (Levemir Vial) 10 units SQ HS [facility] Last Admin: 05/23/19 22:33 Dose: 10 units Insulin Detemir (Levemir Vial) 28 units SQ AM [facility] Last Admin: 05/24/19 07:00 Dose: 28 units Loratadine (Claritin -) 10 mg PO DAILY [facility] Last Admin: 05/24/19 10:03 Dose: 10 mg Metoclopramide HCl (Reglan Oral Solution -) 5 mg GT BID [facility] Last Admin: 05/24/19 10:04 Dose: 5 mg Metoprolol Tartrate (Lopressor -) 50 mg GT BID [facility] Last Admin: 05/24/19 10:03 Dose: 50 mg Montelukast Sodium (Singulair -) 10 mg GT HS [facility] Last Admin: 05/23/19 22:33 Dose: 10 mg Multi-Ingredient Ointment (Zinc Oxide) 1 applic TP BID [facility] Last Admin: 05/24/19 10:12 Dose: 1 applic Pantoprazole Sodium (Protonix Packets For Oral Suspension -) 40 mg PEG DAILY [facility] Last Admin: 05/24/19 10:03 Dose: 40 mg Potassium Chloride (Potassium Chloride Oral Liquid) 40 meq PO BID [facility] Last Admin: 05/24/19 10:04 Dose: 40 meq Prednisone (Deltasone -) 20 mg GT DAILY [facility] Last Admin: 05/24/19 10:03 Dose: 20 mg Sodium Chloride (Normal Saline For Inhalation -) 3 ml IH Q6H PRN PRN Reason: COUGH - Objective Vital Signs: Vital Signs Temperature 98.8 F 05/24/19 14:00 Pulse Rate 81 05/24/19 17:05 Respiratory Rate 20 05/24/19 14:00 Blood Pressure 143/67 05/24/19 14:00 O2 Sat by Pulse Oximetry (%) 99 05/24/19 17:05 Constitutional: Yes: Calm Eyes: Yes: Conjunctiva Clear HENT: Yes: Atraumatic Neck: Yes: Other (trache) Cardiovascular: Yes: S1, S2 Respiratory: Yes: Other (on oxygen via trache) Genitourinary: Yes: Incontinence Musculoskeletal: Yes: Muscle Weakness Edema: No Neurological: Yes: Oriented Psychiatric: Yes: Oriented Labs: CBC, BMP 05/19/19 07:03 05/24/19 07:23 INR, PTT INR 1.00 (0.83-1.09) 05/13/19 18:45 Problem List - Problems (1) CKD (chronic kidney disease) Code(s): N18.9 - CHRONIC KIDNEY DISEASE, UNSPECIFIED (2) Hypercalcemia Code(s): E83.52 - HYPERCALCEMIA Assessment/Plan Current Medications Generic Name Dose Route Start Last Admin Trade Name Freq PRN Reason Stop Dose Admin Acetaminophen 650 mg 05/14/19 20:44 05/24/19 17:38 Tylenol Oral Solution - PO 650 mg Q6H PRN Administration PAIN LEVEL 1-5 Albuterol/Ipratropium 1 amp 05/15/19 00:00 05/24/19 16:15 Duoneb - NEB 1 amp RQ4H [facility] Administration Ascorbic Acid 500 mg 05/15/19 10:00 05/24/19 10:06 Vitamin C Oral Solution - GT 500 mg DAILY [facility] Administration Aspirin 81 mg 05/15/19 10:00 05/24/19 10:03 Asa - GT 81 mg DAILY [facility] Administration Atorvastatin Calcium 80 mg 05/14/19 22:00 05/23/19 22:33 Lipitor - GT 80 mg HS [facility] Administration Clonazepam 0.5 mg 05/15/19 00:00 05/24/19 11:58 Klonopin - GT 0.5 mg Q12H [facility] Administration Famotidine 20 mg 05/18/19 11:30 05/24/19 10:08 Pepcid PO 20 mg BID [facility] Administration Ferrous Sulfate 300 mg 05/15/19 10:00 05/24/19 10:05 Feosol GT 300 mg DAILY [facility] Administration Furosemide 40 mg 05/15/19 10:00 05/24/19 10:11 Lasix Oral Solution - GT 40 mg DAILY [facility] Administration Haloperidol 2 mg 05/15/19 11:32 Haldol Injection (Fast Acting) - IM Q4H PRN AGITATION Heparin Sodium (Porcine) 5,000 unit 05/14/19 22:00 05/24/19 10:03 Heparin - SQ 5,000 unit BID [facility] Administration Insulin Aspart 1 vial 05/20/19 07:00 05/24/19 17:58 Novolog Vial Sliding Scale - SQ 6 units ACHS [facility] Administration Protocol Insulin Detemir 10 units 05/20/19 22:00 05/23/19 22:33 Levemir Vial SQ 10 units HS [facility] Administration Insulin Detemir 28 units 05/22/19 07:00 05/24/19 07:00 Levemir Vial SQ 28 units AM [facility] Administration Loratadine 10 mg 05/19/19 15:00 05/24/19 10:03 Claritin - PO 10 mg DAILY [facility] Administration Metoclopramide HCl 5 mg 05/19/19 22:00 05/24/19 10:04 Reglan Oral Solution - GT 5 mg BID [facility] Administration Metoprolol Tartrate 50 mg 05/19/19 11:45 05/24/19 10:03 Lopressor - GT 50 mg BID [facility] Administration Montelukast Sodium 10 mg 05/14/19 22:00 05/23/19 22:33 Singulair - GT 10 mg HS [facility] Administration Multi-Ingredient Ointment 1 applic 05/14/19 22:00 05/24/19 10:12 Zinc Oxide TP 1 applic BID [facility] Administration Pantoprazole Sodium 40 mg 05/19/19 10:45 05/24/19 10:03 Protonix Packets For Oral Suspension - PEG 40 mg DAILY [facility] Administration Potassium Chloride 40 meq 05/18/19 17:43 05/24/19 10:04 Potassium Chloride Oral Liquid PO 40 meq BID [facility] Administration Prednisone 20 mg 05/15/19 10:00 05/24/19 10:03 Deltasone - GT 20 mg DAILY [facility] Administration Sodium Chloride 3 ml 05/18/19 23:56 Normal Saline For Inhalation - IH Q6H PRN COUGH Impression 1. hypercalcemia 2. DM 3. HTN 4. asthma 5. chronic resp failure 6. azotemia Plan - monitor calcium - vit d supps stopped - will need outpt follow up as well - oncology followup
[2019-05-24] MEDS: MONTELUKAST NA 10 MG TABLET GT SCH (22:53)
[2019-05-24] MEDS: ATORVASTATIN CA 80 MG TABLET (FP) GT SCH (22:53)
[2019-05-25] MEDS: ALBUTEROL SO4 2.5/IPRATROPIUM 0.5 INH SOL 3 ML VIAL.NEB. NEB SCH ×5 (00:14→17:04)
[2019-05-25] MEDS: INSULIN SLIDING SCALE (NOVOLOG) 1 VIAL SQ SCH ×3 (06:45→17:14)
[2019-05-25] MEDS: INSULIN (LEVEMIR) 100 UNITS/ML UNITS SQ SCH (06:45)
[2019-05-25] MEDS ORDERED: INSULIN (LEVEMIR) 100 UNITS/ML UNITS SQ ONE (06:48)
[2019-05-25] MEDS ORDERED: PT OWN MED DRAWER 7, Y5N ONE (10:44)
[2019-05-25] MEDS: HEPARIN NA (PORCINE) 5,000 UNITS/ML 1ML VIAL SQ SCH (10:47)
[2019-05-25] MEDS: POTASSIUM CHLORIDE ORAL LIQUID 20 MEQ/15 ML PO SCH (10:47)
[2019-05-25] MEDS: FERROUS SO4 300 MG/5 ML ORAL SOLN UNIT DOSE CUPS GT SCH (10:47)
[2019-05-25] MEDS: PANTOPRAZOLE SOD 40 MG SUSPENSION PACKET PEG SCH (10:48)
[2019-05-25] MEDS: predniSONE 20 MG TABLET (UD) GT SCH (10:48)
[2019-05-25] MEDS: METOCLOPRAMIDE HCL 5 MG/5 ML UNIT DOSE CUP GT SCH (10:48)
[2019-05-25] MEDS: LORATADINE 10 MG TABLET PO SCH (10:48)
[2019-05-25] MEDS: METOPROLOL TARTRATE 50 MG TABLET (FP) GT SCH (10:48)
[2019-05-25] MEDS: ASPIRIN 81 MG CHEWABLE TABLETS GT SCH (10:48)
[2019-05-25] MEDS: FUROSEMIDE 40 MG/5 ML UNIT-DOSE CUP GT SCH (10:49)
[2019-05-25] MEDS: ASCORBIC ACID 500 MG/5 ML UNIT DOSE CUP GT SCH (10:49)
[2019-05-25] MEDS: FAMOTIDINE 40 MG/5 ML ORAL SUSPENSION PO SCH (10:50)
[2019-05-25] MEDS: ZINC OXIDE 20% TOPICAL OINTMENT 30 GM TUBE TP SCH (10:52)
--- NOTE | 2019-05-25 12:51 | PN ---
Progress Note, Physician History of Present Illness: PULMONARY ALERT,ON TRACH COLLAR TOLERATING WELL,-RESP DISTRESS - Current Medication List Current Medications: Active Medications Acetaminophen (Tylenol Oral Solution -) 650 mg PO Q6H PRN PRN Reason: PAIN LEVEL 1-5 Last Admin: 05/24/19 17:38 Dose: 650 mg Albuterol/Ipratropium (Duoneb -) 1 amp NEB RQ4H [facility] Last Admin: 05/25/19 11:57 Dose: 1 amp Ascorbic Acid (Vitamin C Oral Solution -) 500 mg GT DAILY [facility] Last Admin: 05/25/19 10:49 Dose: 500 mg Aspirin (Asa -) 81 mg GT DAILY [facility] Last Admin: 05/25/19 10:48 Dose: 81 mg Atorvastatin Calcium (Lipitor -) 80 mg GT HS [facility] Last Admin: 05/24/19 22:53 Dose: 80 mg Clonazepam (Klonopin -) 0.5 mg GT Q12H [facility] Last Admin: 05/24/19 22:59 Dose: 0.5 mg Famotidine (Pepcid) 20 mg PO BID [facility] Last Admin: 05/25/19 10:50 Dose: 20 mg Ferrous Sulfate (Feosol) 300 mg GT DAILY [facility] Last Admin: 05/25/19 10:47 Dose: 300 mg Furosemide (Lasix Oral Solution -) 40 mg GT DAILY [facility] Last Admin: 05/25/19 10:49 Dose: 40 mg Haloperidol (Haldol Injection (Fast Acting) -) 2 mg IM Q4H PRN PRN Reason: AGITATION Heparin Sodium (Porcine) (Heparin -) 5,000 unit SQ BID [facility] Last Admin: 05/25/19 10:47 Dose: 5,000 unit Insulin Aspart (Novolog Vial Sliding Scale -) 1 vial SQ [facility]; Protocol Last Admin: 05/25/19 11:56 Dose: Not Given Insulin Detemir (Levemir Vial) 10 units SQ HS [facility] Last Admin: 05/24/19 22:56 Dose: 10 units Insulin Detemir (Levemir Vial) 28 units SQ AM [facility] Last Admin: 05/25/19 06:45 Dose: 28 units Loratadine (Claritin -) 10 mg PO DAILY [facility] Last Admin: 05/25/19 10:48 Dose: 10 mg Metoclopramide HCl (Reglan Oral Solution -) 5 mg GT BID [facility] Last Admin: 05/25/19 10:48 Dose: 5 mg Metoprolol Tartrate (Lopressor -) 50 mg GT BID [facility] Last Admin: 05/25/19 10:48 Dose: 50 mg Montelukast Sodium (Singulair -) 10 mg GT HS [facility] Last Admin: 05/24/19 22:53 Dose: 10 mg Multi-Ingredient Ointment (Zinc Oxide) 1 applic TP BID [facility] Last Admin: 05/25/19 10:52 Dose: 1 applic Pantoprazole Sodium (Protonix Packets For Oral Suspension -) 40 mg PEG DAILY [facility] Last Admin: 05/25/19 10:48 Dose: 40 mg Potassium Chloride (Potassium Chloride Oral Liquid) 40 meq PO BID [facility] Last Admin: 05/25/19 10:47 Dose: 40 meq Prednisone (Deltasone -) 20 mg GT DAILY [facility] Last Admin: 05/25/19 10:48 Dose: 20 mg Sodium Chloride (Normal Saline For Inhalation -) 3 ml IH Q6H PRN PRN Reason: COUGH - Objective Vital Signs: Vital Signs Temperature 97.5 F L 05/25/19 09:00 Pulse Rate 75 05/25/19 09:00 Respiratory Rate 20 05/25/19 09:00 Blood Pressure 148/61 05/25/19 09:00 O2 Sat by Pulse Oximetry (%) 99 05/25/19 08:09 Constitutional: Yes: Well Nourished, Calm Eyes: Yes: WNL HENT: Yes: WNL Neck: Yes: WNL (TRACH) Cardiovascular: Yes: Regular Rate and Rhythm, S1, S2 Respiratory: Yes: Rhonchi (FEW SCATTERED RHONCI) Gastrointestinal: Yes: Normal Bowel Sounds, Soft Extremities: Yes: WNL Edema: No Labs: CBC, BMP Problem List - Problems (1) Chronic respiratory failure Code(s): J96.10 - CHRONIC RESPIRATORY FAILURE, UNSP W HYPOXIA OR HYPERCAPNIA (2) HLD (hyperlipidemia) Code(s): E78.5 - HYPERLIPIDEMIA, UNSPECIFIED (3) HTN (hypertension) Code(s): I10 - ESSENTIAL (PRIMARY) HYPERTENSION (4) Hypothyroid Code(s): E03.9 - HYPOTHYROIDISM, UNSPECIFIED (5) Tracheostomy status Code(s): Z93.0 - TRACHEOSTOMY STATUS Assessment/Plan Assessment/Plan Chronic Respiratory Failure UTI CAD Asthma HTN DM - inhaled bronchodilators - O2 to keep Spo2 >90% - prednisone - singulair - enteral feeds - DVT/GI prophylaxis - Antibiotics - PMV s tolerated DR ENRIQUEZ
[2019-05-25] MEDS: clonazePAM 0.5 MG TABLET GT SCH (12:59)
[2019-05-25 18:32] VITALS: BP 126/60; PULSE 77; TEMP 98.2
--- NOTE | 2019-05-25 18:44 | PN ---
Progress Note (short form) - Note Progress Note: PATIENT WAS SEEN AND EXAMINED DISCHARGE ORDERS COMPLETED MEDICALLY CLEARED FOR DISCHARGE TO SNF D/W RADIATOR CORE TESTER Problem List - Problems (1) Anemia Code(s): D64.9 - ANEMIA, UNSPECIFIED Qualifiers: Hemolytic anemia type: acquired, autoimmune, drug-induced (2) Anxiety Code(s): F41.9 - ANXIETY DISORDER, UNSPECIFIED (3) CKD (chronic kidney disease) Code(s): N18.9 - CHRONIC KIDNEY DISEASE, UNSPECIFIED (4) Chest pain Code(s): R07.9 - CHEST PAIN, UNSPECIFIED (5) Diabetes mellitus Code(s): E11.9 - TYPE 2 DIABETES MELLITUS WITHOUT COMPLICATIONS (6) Dizziness Code(s): R42 - DIZZINESS AND GIDDINESS (7) Respiratory failure with hypoxia and hypercapnia Code(s): J96.91 - RESPIRATORY FAILURE, UNSPECIFIED WITH HYPOXIA; J96.92 - RESPIRATORY FAILURE, UNSPECIFIED WITH HYPERCAPNIA (8) Tracheostomy status Code(s): Z93.0 - TRACHEOSTOMY STATUS (9) UTI (urinary tract infection) Code(s): N39.0 - URINARY TRACT INFECTION, SITE NOT SPECIFIED
--- NOTE | 2019-05-25 20:08 | PN ---
Progress Note, Physician History of Present Illness: Pt seen and examined at bedside. She is awake and appears comfortable. - Current Medication List Current Medications: Active Medications Acetaminophen (Tylenol Oral Solution -) 650 mg PO Q6H PRN PRN Reason: PAIN LEVEL 1-5 Last Admin: 05/24/19 17:38 Dose: 650 mg Albuterol/Ipratropium (Duoneb -) 1 amp NEB RQ4H [facility] Last Admin: 05/25/19 17:04 Dose: 1 amp Ascorbic Acid (Vitamin C Oral Solution -) 500 mg GT DAILY [facility] Last Admin: 05/25/19 10:49 Dose: 500 mg Aspirin (Asa -) 81 mg GT DAILY [facility] Last Admin: 05/25/19 10:48 Dose: 81 mg Atorvastatin Calcium (Lipitor -) 80 mg GT HS [facility] Last Admin: 05/24/19 22:53 Dose: 80 mg Clonazepam (Klonopin -) 0.5 mg GT Q12H [facility] Last Admin: 05/25/19 12:59 Dose: 0.5 mg Famotidine (Pepcid) 20 mg PO BID [facility] Last Admin: 05/25/19 10:50 Dose: 20 mg Ferrous Sulfate (Feosol) 300 mg GT DAILY [facility] Last Admin: 05/25/19 10:47 Dose: 300 mg Furosemide (Lasix Oral Solution -) 40 mg GT DAILY [facility] Last Admin: 05/25/19 10:49 Dose: 40 mg Haloperidol (Haldol Injection (Fast Acting) -) 2 mg IM Q4H PRN PRN Reason: AGITATION Heparin Sodium (Porcine) (Heparin -) 5,000 unit SQ BID [facility] Last Admin: 05/25/19 10:47 Dose: 5,000 unit Insulin Aspart (Novolog Vial Sliding Scale -) 1 vial SQ [facility]; Protocol Last Admin: 05/25/19 17:14 Dose: 4 units Insulin Detemir (Levemir Vial) 10 units SQ HS [facility] Last Admin: 05/24/19 22:56 Dose: 10 units Insulin Detemir (Levemir Vial) 28 units SQ AM [facility] Last Admin: 05/25/19 06:45 Dose: 28 units Loratadine (Claritin -) 10 mg PO DAILY [facility] Last Admin: 05/25/19 10:48 Dose: 10 mg Metoclopramide HCl (Reglan Oral Solution -) 5 mg GT BID [facility] Last Admin: 05/25/19 10:48 Dose: 5 mg Metoprolol Tartrate (Lopressor -) 50 mg GT BID [facility] Last Admin: 05/25/19 10:48 Dose: 50 mg Montelukast Sodium (Singulair -) 10 mg GT HS [facility] Last Admin: 05/24/19 22:53 Dose: 10 mg Multi-Ingredient Ointment (Zinc Oxide) 1 applic TP BID [facility] Last Admin: 05/25/19 10:52 Dose: 1 applic Pantoprazole Sodium (Protonix Packets For Oral Suspension -) 40 mg PEG DAILY [facility] Last Admin: 05/25/19 10:48 Dose: 40 mg Potassium Chloride (Potassium Chloride Oral Liquid) 40 meq PO BID [facility] Last Admin: 05/25/19 10:47 Dose: 40 meq Prednisone (Deltasone -) 20 mg GT DAILY [facility] Last Admin: 05/25/19 10:48 Dose: 20 mg Sodium Chloride (Normal Saline For Inhalation -) 3 ml IH Q6H PRN PRN Reason: COUGH - Objective Vital Signs: Vital Signs Temperature 98.2 F 05/25/19 18:00 Pulse Rate 77 05/25/19 18:00 Respiratory Rate 20 05/25/19 18:00 Blood Pressure 126/60 05/25/19 18:00 O2 Sat by Pulse Oximetry (%) 99 05/25/19 17:02 Constitutional: Yes: Calm Eyes: Yes: Conjunctiva Clear HENT: Yes: Atraumatic Neck: Yes: Other (tracje) Cardiovascular: Yes: S1, S2 Respiratory: Yes: Other (on oxygen via trache collar) Gastrointestinal: Yes: Normal Bowel Sounds, Soft Genitourinary: Yes: Incontinence Extremities: Yes: WNL Edema: No Neurological: Yes: Oriented Labs: CBC, BMP 05/19/19 07:03 05/24/19 07:23 INR, PTT INR 1.00 (0.83-1.09) 05/13/19 18:45 Problem List - Problems (1) CKD (chronic kidney disease) Code(s): N18.9 - CHRONIC KIDNEY DISEASE, UNSPECIFIED (2) Hypercalcemia Code(s): E83.52 - HYPERCALCEMIA Assessment/Plan Current Medications Generic Name Dose Route Start Last Admin Trade Name Freq PRN Reason Stop Dose Admin Acetaminophen 650 mg 05/14/19 20:44 05/24/19 17:38 Tylenol Oral Solution - PO 650 mg Q6H PRN Administration PAIN LEVEL 1-5 Albuterol/Ipratropium 1 amp 05/15/19 00:00 05/25/19 17:04 Duoneb - NEB 1 amp RQ4H [facility] Administration Ascorbic Acid 500 mg 05/15/19 10:00 05/25/19 10:49 Vitamin C Oral Solution - GT 500 mg DAILY [facility] Administration Aspirin 81 mg 05/15/19 10:00 05/25/19 10:48 Asa - GT 81 mg DAILY [facility] Administration Atorvastatin Calcium 80 mg 05/14/19 22:00 05/24/19 22:53 Lipitor - GT 80 mg HS [facility] Administration Clonazepam 0.5 mg 05/15/19 00:00 05/25/19 12:59 Klonopin - GT 0.5 mg Q12H [facility] Administration Famotidine 20 mg 05/18/19 11:30 05/25/19 10:50 Pepcid PO 20 mg BID [facility] Administration Ferrous Sulfate 300 mg 05/15/19 10:00 05/25/19 10:47 Feosol GT 300 mg DAILY [facility] Administration Furosemide 40 mg 05/15/19 10:00 05/25/19 10:49 Lasix Oral Solution - GT 40 mg DAILY [facility] Administration Haloperidol 2 mg 05/15/19 11:32 Haldol Injection (Fast Acting) - IM Q4H PRN AGITATION Heparin Sodium (Porcine) 5,000 unit 05/14/19 22:00 05/25/19 10:47 Heparin - SQ 5,000 unit BID [facility] Administration Insulin Aspart 1 vial 05/20/19 07:00 05/25/19 17:14 Novolog Vial Sliding Scale - SQ 4 units ACHS [facility] Administration Protocol Insulin Detemir 10 units 05/20/19 22:00 05/24/19 22:56 Levemir Vial SQ 10 units HS [facility] Administration Insulin Detemir 28 units 05/22/19 07:00 05/25/19 06:45 Levemir Vial SQ 28 units AM [facility] Administration Loratadine 10 mg 05/19/19 15:00 05/25/19 10:48 Claritin - PO 10 mg DAILY [facility] Administration Metoclopramide HCl 5 mg 05/19/19 22:00 05/25/19 10:48 Reglan Oral Solution - GT 5 mg BID [facility] Administration Metoprolol Tartrate 50 mg 05/19/19 11:45 05/25/19 10:48 Lopressor - GT 50 mg BID [facility] Administration Montelukast Sodium 10 mg 05/14/19 22:00 05/24/19 22:53 Singulair - GT 10 mg HS [facility] Administration Multi-Ingredient Ointment 1 applic 05/14/19 22:00 05/25/19 10:52 Zinc Oxide TP 1 applic BID [facility] Administration Pantoprazole Sodium 40 mg 05/19/19 10:45 05/25/19 10:48 Protonix Packets For Oral Suspension - PEG 40 mg DAILY [facility] Administration Potassium Chloride 40 meq 05/18/19 17:43 05/25/19 10:47 Potassium Chloride Oral Liquid PO 40 meq BID [facility] Administration Prednisone 20 mg 05/15/19 10:00 05/25/19 10:48 Deltasone - GT 20 mg DAILY [facility] Administration Sodium Chloride 3 ml 05/18/19 23:56 Normal Saline For Inhalation - IH Q6H PRN COUGH Impression 1. hypercalcemia 2. DM 3. HTN 4. asthma 5. chronic resp failure 6. azotemia Plan - monitor cmp in rehab - avoid calcium and vit d supps - check vit d levels in rehab - moniro renal function - oncology followup
== END 2019-05-25 21:44 | DRG 870 ==
LOC: JER 16:46 → JERBED 05-14 00:52 → J5S 05-14 20:24
PROVIDERS: ADMIT Internal Medicine; ATTEND Family Medicine
PROC: 5A1955Z Respiratory Ventilation, Greater than 96 Consecutive Hours (ICD-10-PCS; principal; 2019-05-14)
DX: A41.9 Sepsis, unspecified organism (principal); N39.0 Urinary tract infection, site not specified; J96.10 Chronic respiratory failure, unspecified whether with hypoxia or hypercapnia; N17.9 Acute kidney failure, unspecified; J98.11 Atelectasis; E88.09 Other disorders of plasma-protein metabolism, not elsewhere classified; I25.10 Atherosclerotic heart disease of native coronary artery without angina pectoris; E83.52 Hypercalcemia; Z93.0 Tracheostomy status; J45.909 Unspecified asthma, uncomplicated; F41.9 Anxiety disorder, unspecified; I12.9 Hypertensive chronic kidney disease with stage 1 through stage 4 chronic kidney disease, or unspecified chronic kidney disease; N18.9 Chronic kidney disease, unspecified; D64.9 Anemia, unspecified; F22 Delusional disorders; R11.2 Nausea with vomiting, unspecified; R07.9 Chest pain, unspecified; E78.5 Hyperlipidemia, unspecified; E87.6 Hypokalemia; E11.65 Type 2 diabetes mellitus with hyperglycemia; K21.9 Gastro-esophageal reflux disease without esophagitis
CPT/HCPCS: 36415; 71045-TC-FY; 74176-TC; 74230-TC-FY; 76700-TC; 76775-TC; 80053; 81003; 82272; 82306; 82310; 82330; 82550; 82607; 82962; 83036; 83540; 83550; 83690; 83735; 83883; 83970; 84155; 84165; 84439; 84443; 84480; 84484; 85025; 85027; 85610; 85730; 87040; 87086; 87177; 87186; 87205; 87209; 87324; 87449; 87493; 87804; 90670; 92611-GN; 93005; 93010; 94002; 94640; 97161-GP; 99285-25; J0131; J1439; J1644; J7030